=== PATIENT | male | born 1995 | race Two or more races ===

== ENCOUNTER 2022-09-25 00:10 | Inpatient (IN) | payer MEDICAID, OTHER ==
[~2022-09-25] VITALS: Ht 182.9 cm; Wt 88.2 kg
[2022-09-25] MEDS ORDERED: ONDANSETRON ODT 4 MG TAB PO ONE ×2 (00:30→01:30)
[2022-09-25] MEDS ORDERED: HYDROmorphone HCL 2 MG/ML VL/or syr IM ONE (01:30)
[2022-09-25 01:42] LABS: Basophils # (auto) 0 10 ^3/uL (0-0.2); Basophils % (auto) 0.2 % (0.0-2.0); Eosinophils # (auto) 0 10 ^3/uL (0-0.8); Hematocrit 49.7 % (41.0-53.0); Hemoglobin 16.6 g/dL (13.5-17.5); Lymphocytes # (auto) 1.6 10 ^3/uL (0.4-5.4); Lymphocytes % (auto) 11.4 % (10.0-50.0); Mean Corpuscular Hemoglobin 28.5 pg (28.0-32.0); Mean Corpuscular Hgb Conc. 33.3 g/dL (32.0-36.0); Mean Corpuscular Volume 85.4 fL (80.0-100.0); Monocytes # (auto) 0.6 10 ^3/uL (0-1.3); Monocytes % (auto) 4.2 % (0.0-12.0); Neutrophils # (auto) 11.8 10 ^3/uL (1.6-8.6); Neutrophils % (auto) 84.2 % (37.0-80.0); Nucleated Red Blood Cells % 0.1 %; Red Blood Cells 5.82 10^6/uL (4.5-5.90); Red Cell Distribution Width 14.5 % (11.8-14.3)
[2022-09-25] MEDS ORDERED: LIDOCAINE VISCOUS 2% 15ML UD PO ONE (02:15)
[2022-09-25] MEDS ORDERED: MAALOX PLUS or MAALOX 30 ML PO ONE (02:15)
[2022-09-25 02:22] LABS: Albumin 4.4 g/dL (3.4-5.0); BUN/Creatinine Ratio 19.7 (10.0-20.0); Calcium 9.8 mg/dL (8.5-10.1); Magnesium 2.3 mg/dL (1.6-2.6); Potassium 3.7 mmol/L (3.5-5.1)
[2022-09-25 02:25] LABS: Bilirubin, Total 0.6 mg/dL (0.2-1.0); Total Protein 9.6 g/dL (6.4-8.2)
[2022-09-25] MEDS ORDERED: DOCUSATE SOD 100 MG CAP PO PRN (13:45)
[2022-09-25] MEDS ORDERED: SODIUM CHLORIDE 0.9% 2,000 ML IV ONE (13:45)
[2022-09-25] MEDS: SODIUM CHLORIDE 0.9% 1,000 ML IV SCH ×2 (13:45→22:32)
[2022-09-25] MEDS: ONDANSETRON HCL 4 MG/2 ML VIAL IV PRN ×3 (14:37→22:26)
[2022-09-25 16:58] LABS: Urine Bacteria NONE SEEN /hpf (None Seen); Urine Blood Negative /uL (Negative); Urine Hyaline Cast MOD /lpf (0 - 2); Urine Mucus MODERATE (None Seen); Urine Specific Gravity 1.035 (1.001-1.035); Urine WBC <1 /hpf (0 - 3)
[2022-09-25 17:11] LABS: Sodium Urine 10 mmol/L (40-220)
[2022-09-25 17:21] LABS: Amphetamine Screen, Urine NEGATIVE (NEGATIVE); Barbiturate Scree,Urine NEGATIVE (NEGATIVE); Benzodiazephine Screen, Urine NEGATIVE (NEGATIVE); Cannabinoid Screen, Urine POSITIVE (NEGATIVE); Cocaine Screen, Urine NEGATIVE (NEGATIVE); Creatinine, Urine 621 mg/dL (30.0-125.0); Opiate Scree,Urine NEGATIVE (NEGATIVE); Phencyclidine Screen, Urine NEGATIVE (NEGATIVE)
[2022-09-25] MEDS ORDERED: PIPERACILLIN-TAZOB 3.375GM 100 ML IV SCH (18:00)
[2022-09-25] MEDS: MORPHINE SULFATE INJ 2 MG/ml SYRG IV PRN ×2 (18:01→22:26)
[2022-09-25 18:23] VITALS: BP 132/80
[2022-09-25 22:00] VITALS: BP 129/77
[2022-09-26] MEDS: MORPHINE SULFATE INJ 2 MG/ml SYRG IV PRN ×2 (02:13→09:08)
[2022-09-26] MEDS: ONDANSETRON HCL 4 MG/2 ML VIAL IV PRN ×2 (02:13→09:08)
[2022-09-26 05:00] VITALS: BP 141/94
[2022-09-26] MEDS: SODIUM CHLORIDE 0.9% 1,000 ML IV SCH ×2 (06:21→13:43)
[2022-09-26 06:34] LABS: Basophils # (auto) 0.1 10 ^3/uL (0-0.2); Basophils % (auto) 0.4 % (0.0-2.0); Eosinophils # (auto) 0 10 ^3/uL (0-0.8); Hematocrit 45.9 % (41.0-53.0); Hemoglobin 15.2 g/dL (13.5-17.5); Lymphocytes # (auto) 1.9 10 ^3/uL (0.4-5.4); Lymphocytes % (auto) 12.8 % (10.0-50.0); Mean Corpuscular Hemoglobin 28.5 pg (28.0-32.0); Mean Corpuscular Volume 86.3 fL (80.0-100.0); Monocytes # (auto) 1.1 10 ^3/uL (0-1.3); Monocytes % (auto) 7.4 % (0.0-12.0); Neutrophils % (auto) 79.4 % (37.0-80.0); Red Blood Cells 5.31 10^6/uL (4.5-5.90); Red Cell Distribution Width 14.9 % (11.8-14.3); White Blood Cell 15.1 10^3/uL (4.4-10.8)
[2022-09-26 06:36] LABS: Calcium 8.7 mg/dL (8.5-10.1); Potassium 3.8 mmol/L (3.5-5.1)
[2022-09-26 06:40] LABS: BUN/Creatinine Ratio 27.3 (10.0-20.0); Bilirubin, Total 0.8 mg/dL (0.2-1.0); Total Protein 8.3 g/dL (6.4-8.2)
[2022-09-26 09:00] VITALS: BP 142/83
[2022-09-26] MEDS ORDERED: PANTOPRAZOLE 40 MG/10 ML VIAL INJ IV SCH (10:00)
[2022-09-26 13:00] VITALS: BP 113/64
[2022-09-26] MEDS ORDERED: metroNIDAZOLE 500MG/100ML 100 ML IV SCH (14:00)
[2022-09-26] MEDS ORDERED: MET500T PO (16:03)
[2022-09-26 16:19] VITALS: BP 113/64
== END 2022-09-26 16:58 | disposition home or self-care (01) | DRG 248 ==
LOC: ER 00:10 → OVERFLOW 13:40 → EAST 18:13
PROVIDERS: ADMIT Nurse Practitioner Family; ATTEND Nurse Practitioner Family
DX: A04.9 Bacterial intestinal infection, unspecified (principal); N17.0 Acute kidney failure with tubular necrosis; K29.00 Acute gastritis without bleeding; D72.829 Elevated white blood cell count, unspecified; E86.0 Dehydration
CPT/HCPCS: 36415; 74176; 80053; 80307; 80320; 81001; 82570; 83690; 83735; 84300; 85025; 96361; 96372; 96374; 96375; C9113; G0378; J2405; J3490; Q0162

== ENCOUNTER 2023-02-12 02:07 | Inpatient (IN) | payer MEDICAID ==
[~2023-02-12] VITALS: Ht 182.9 cm; Wt 80.8 kg
[~2023-02-12 02:07] MED LIST: MET500T PO
[2023-02-12 02:46] LABS: Basophils # (auto) 0 10 ^3/uL (0-0.2); Basophils % (auto) 0.2 % (0.0-2.0); Eosinophils # (auto) 0 10 ^3/uL (0-0.8); Hematocrit 50.8 % (41.0-53.0); Hemoglobin 16.8 g/dL (13.5-17.5); Lymphocytes # (auto) 1.3 10 ^3/uL (0.4-5.4); Lymphocytes % (auto) 9.6 % (10.0-50.0); Mean Corpuscular Hemoglobin 28.2 pg (28.0-32.0); Mean Corpuscular Volume 85.7 fL (80.0-100.0); Monocytes # (auto) 0.5 10 ^3/uL (0-1.3); Monocytes % (auto) 4.1 % (0.0-12.0); Neutrophils # (auto) 11.5 10 ^3/uL (1.6-8.6); Neutrophils % (auto) 86.1 % (37.0-80.0); Nucleated Red Blood Cells % 0.1 %; Red Blood Cells 5.94 10^6/uL (4.5-5.90); Red Cell Distribution Width 14.5 % (11.8-14.3); White Blood Cell 13.3 10^3/uL (4.4-10.8)
[2023-02-12 03:02] LABS: Alanine Aminotransferase 15 U/L (7-40); Albumin 5.5 g/dL (3.2-4.8); Alkaline Phosphatase 111 U/L (46-116); Anion Gap 13 (5-15); Aspartate Aminotransferase 10 U/L (13-40); BUN/Creatinine Ratio 13.8 (10.0-20.0); Blood Urea Nitrogen 19 mg/dL (9-23); Calcium 9.9 mg/dL (8.7-10.4); Carbon Dioxide 19 mmol/L (20-30); Chloride 108 mmol/L (98-107); Glucose 152 mg/dL (74-106); Lipase 38 U/L (12-53); Potassium 4.2 mmol/L (3.5-5.1); Sodium 140 mmol/L (136-145)
[2023-02-12 03:03] LABS: Bilirubin, Total 0.7 mg/dL (0.2-1.0); Total Protein 9.2 g/dL (5.7-8.2)
[2023-02-12] MEDS ORDERED: ONDANSETRON HCL 4 MG/2 ML VIAL IV ONE (07:30)
[2023-02-12] MEDS ORDERED: SODIUM CHLORIDE 0.9% 1,000 ML IV ONE ×3 (07:30→11:00)
[2023-02-12] MEDS ORDERED: MORPHINE SULFATE 4 MG/ML SYR/VIAL IV ONE (07:30)
[2023-02-12 08:37] VITALS: PULSE 80; RESP 20; O2SAT 98
[2023-02-12] MEDS ORDERED: DOCUSATE SOD 100 MG CAP PO PRN (11:00)
[2023-02-12] MEDS: MORPHINE SULFATE INJ 2 MG/ml SYRG IV PRN ×3 (14:31→22:20)
[2023-02-12] MEDS: ONDANSETRON HCL 4 MG/2 ML VIAL IV PRN ×3 (14:31→22:19)
[2023-02-12] MEDS: metroNIDAZOLE 500MG/100ML 100 ML IV SCH ×2 (15:33→22:18)
[2023-02-12] MEDS: SODIUM CHLORIDE 0.9% 1,000 ML IV SCH ×2 (15:37→18:03)
[2023-02-12 20:00] VITALS: BP 116/69; PULSE 74; RESP 20; TEMP 98.1
[2023-02-12 20:10] VITALS: PULSE 84; RESP 20; O2SAT 100
[2023-02-12 21:36] LABS: Urine Bacteria NONE SEEN /hpf (None Seen); Urine Blood Negative /uL (Negative); Urine Clarity Clear (Clear); Urine Color Yellow (Yellow); Urine Mucus FEW (None Seen); Urine Protein, UAD 1+ (Negative); Urine Specific Gravity 1.036 (1.001-1.035); Urine Urobilinogen Normal (Negative); Urine WBC 2 /hpf (0 - 3)
[2023-02-12] MEDS: PANTOPRAZOLE 40 MG/10 ML VIAL INJ IV SCH (22:18)
[2023-02-13] VITALS (7 sets, daily range): BP systolic 103–136; BP diastolic 65–91; PULSE 55–85; RESP 16–20; TEMP 97.6–98.6; O2SAT 90–100
[2023-02-13] MEDS: ONDANSETRON HCL 4 MG/2 ML VIAL IV PRN ×2 (02:24→09:17)
[2023-02-13] MEDS: MORPHINE SULFATE INJ 2 MG/ml SYRG IV PRN ×5 (02:24→22:59)
[2023-02-13] MEDS: SODIUM CHLORIDE 0.9% 1,000 ML IV SCH ×4 (03:00→22:54)
[2023-02-13 04:58] LABS: Basophils # (auto) 0 10 ^3/uL (0-0.2); Basophils % (auto) 0.3 % (0.0-2.0); Eosinophils # (auto) 0 10 ^3/uL (0-0.8); Hematocrit 43.5 % (41.0-53.0); Lymphocytes % (auto) 16.9 % (10.0-50.0); Mean Corpuscular Hemoglobin 27.9 pg (28.0-32.0); Mean Corpuscular Hgb Conc. 32.3 g/dL (32.0-36.0); Mean Corpuscular Volume 86.4 fL (80.0-100.0); Monocytes # (auto) 0.8 10 ^3/uL (0-1.3); Monocytes % (auto) 6.7 % (0.0-12.0); Neutrophils # (auto) 8.9 10 ^3/uL (1.6-8.6); Neutrophils % (auto) 76.1 % (37.0-80.0); Nucleated Red Blood Cells % 0.1 %; Red Blood Cells 5.03 10^6/uL (4.5-5.90); Red Cell Distribution Width 15.1 % (11.8-14.3); White Blood Cell 11.7 10^3/uL (4.4-10.8)
[2023-02-13 05:13] LABS: Alanine Aminotransferase 11 U/L (7-40); Albumin 4.4 g/dL (3.2-4.8); Alkaline Phosphatase 81 U/L (46-116); Anion Gap 7 (5-15); Aspartate Aminotransferase 15 U/L (13-40); BUN/Creatinine Ratio 19.6 (10.0-20.0); Bilirubin, Total 0.8 mg/dL (0.2-1.0); Blood Urea Nitrogen 19 mg/dL (9-23); Calcium 8.8 mg/dL (8.7-10.4); Carbon Dioxide 24 mmol/L (20-30); Chloride 113 mmol/L (98-107); Glucose 107 mg/dL (74-106); Potassium 3.9 mmol/L (3.5-5.1); Sodium 144 mmol/L (136-145); Total Protein 7.1 g/dL (5.7-8.2)
[2023-02-13] MEDS ORDERED: KETOROLAC TROMETH 30 MG/ML 1ML VIAL IV ONE (06:00)
[2023-02-13] MEDS: metroNIDAZOLE 500MG/100ML 100 ML IV SCH ×3 (06:15→21:30)
[2023-02-13] MEDS: PANTOPRAZOLE 40 MG/10 ML VIAL INJ IV SCH ×2 (09:07→21:29)
[2023-02-13] MEDS: cefTRIAXone 1GM/50ML D5W 50 ML IV SCH (09:07)
[2023-02-13] MEDS: METOCLOPRAMIDE HCL 5MG/ml INJ 2ml VIAL IV PRN ×2 (11:52→17:09)
[2023-02-13 13:44] LABS: Amphetamine Screen, Urine Neg (NEGATIVE); Barbiturate Scree,Urine Neg (NEGATIVE)
[2023-02-13 13:45] LABS: Benzodiazephine Screen, Urine Neg (NEGATIVE); Cannabinoid Screen, Urine Pos (NEGATIVE); Cocaine Screen, Urine Neg (NEGATIVE); Opiate Scree,Urine Pos (NEGATIVE); Phencyclidine Screen, Urine Neg (NEGATIVE)
[2023-02-13] MEDS: SUCRALFATE 1 GM/10 ML ORAL SUSP GT SCH ×2 (17:09→21:29)
[2023-02-14] MEDS: MORPHINE SULFATE INJ 2 MG/ml SYRG IV PRN ×2 (02:06→06:02)
[2023-02-14 05:00] VITALS: BP 110/71; PULSE 77; RESP 17; TEMP 98.2; O2SAT 95
[2023-02-14] MEDS: metroNIDAZOLE 500MG/100ML 100 ML IV SCH ×2 (05:07→14:00)
[2023-02-14 05:45] LABS: Basophils # (auto) 0.1 10 ^3/uL (0-0.2); Basophils % (auto) 0.6 % (0.0-2.0); Eosinophils # (auto) 0 10 ^3/uL (0-0.8); Eosinophils % (auto) 0.2 % (0.0-7.0); Hematocrit 41.5 % (41.0-53.0); Hemoglobin 13.6 g/dL (13.5-17.5); Lymphocytes # (auto) 3.3 10 ^3/uL (0.4-5.4); Lymphocytes % (auto) 30.8 % (10.0-50.0); Mean Corpuscular Hemoglobin 28.3 pg (28.0-32.0); Mean Corpuscular Hgb Conc. 32.8 g/dL (32.0-36.0); Mean Corpuscular Volume 86.2 fL (80.0-100.0); Monocytes # (auto) 0.8 10 ^3/uL (0-1.3); Monocytes % (auto) 7.4 % (0.0-12.0); Neutrophils # (auto) 6.5 10 ^3/uL (1.6-8.6); Nucleated Red Blood Cells % 0.1 %; Red Blood Cells 4.81 10^6/uL (4.5-5.90); Red Cell Distribution Width 14.7 % (11.8-14.3); White Blood Cell 10.6 10^3/uL (4.4-10.8)
[2023-02-14] MEDS: SUCRALFATE 1 GM/10 ML ORAL SUSP GT SCH ×2 (06:02→12:00)
[2023-02-14 06:07] LABS: Alanine Aminotransferase 12 U/L (7-40); Albumin 3.9 g/dL (3.2-4.8); Alkaline Phosphatase 65 U/L (46-116); Anion Gap 9 (5-15); Aspartate Aminotransferase 16 U/L (13-40); Bilirubin, Total 0.8 mg/dL (0.2-1.0); Blood Urea Nitrogen 12 mg/dL (9-23); Calcium 8.7 mg/dL (8.5-10.1); Carbon Dioxide 22 mmol/L (20-30); Chloride 113 mmol/L (98-107); Glucose 103 mg/dL (74-106); Potassium 3.8 mmol/L (3.5-5.1); Sodium 144 mmol/L (136-145)
[2023-02-14 06:08] LABS: Total Protein 6.4 g/dL (5.7-8.2)
[2023-02-14 08:00] VITALS: BP 109/68; PULSE 73; RESP 18; TEMP 97.6; O2SAT 92
[2023-02-14] MEDS ORDERED: FLUMAZENIL 0.1 MG/ML INJ 10ML MDV IV ONE (08:02)
[2023-02-14] MEDS ORDERED: NALOXONE HCL 0.4 MG/ML VIAL ONE (08:02)
[2023-02-14] MEDS ORDERED: SODIUM CHLORIDE LOCK 10 ML ONE (08:02)
[2023-02-14] MEDS ORDERED: LIDOCAINE VISCOUS 2% 15ML UD ONE (08:02)
[2023-02-14] MEDS ORDERED: diphenhdrAMINE HCL 50 MG/1 ML VL ONE (08:02)
[2023-02-14] MEDS: MIDAZOLAM HCL 5 MG/ML-1ML VIAL ONE ×3 (08:53→09:01)
[2023-02-14] MEDS: fentaNYL CITRATE 100 MCG/2 ML VL ONE ×2 (08:53→08:57)
[2023-02-14 09:00] VITALS: BP 109/68; PULSE 73; RESP 18; TEMP 97.6; O2SAT 92
[2023-02-14 09:08] VITALS: PULSE 65; RESP 17
[2023-02-14] MEDS: PANTOPRAZOLE 40 MG/10 ML VIAL INJ IV SCH (10:39)
[2023-02-14] MEDS: cefTRIAXone 1GM/50ML D5W 50 ML IV SCH (10:39)
[2023-02-14] MEDS: SODIUM CHLORIDE 0.9% 1,000 ML IV SCH (11:00)
[2023-02-14] MEDS ORDERED: PANT40TA2 PO (12:28)
[2023-02-14 13:00] VITALS: BP 111/67; PULSE 51; RESP 18; TEMP 98.1; O2SAT 97
[2023-02-14 14:53] VITALS: BP 111/67; PULSE 73; RESP 18; TEMP 98.1; O2SAT 97
== END 2023-02-14 15:40 | disposition home or self-care (01) | DRG 720 ==
LOC: ER 02:07 → OVERFLOW 11:07 → CENTRAL 16:50
PROVIDERS: ADMIT Internal Medicine; ATTEND Internal Medicine
PROC: 0DB68ZX Excision of Stomach, Via Natural or Artificial Opening Endoscopic, Diagnostic (ICD-10-PCS; 2023-02-14)
PROC: 0DB48ZX Excision of Esophagogastric Junction, Via Natural or Artificial Opening Endoscopic, Diagnostic (ICD-10-PCS; 2023-02-14)
PROC: 0DB98ZX Excision of Duodenum, Via Natural or Artificial Opening Endoscopic, Diagnostic (ICD-10-PCS; principal; 2023-02-14 08:49)
DX: A41.9 Sepsis, unspecified organism (principal); N17.9 Acute kidney failure, unspecified; K22.11 Ulcer of esophagus with bleeding; K25.4 Chronic or unspecified gastric ulcer with hemorrhage; K29.71 Gastritis, unspecified, with bleeding; I88.0 Nonspecific mesenteric lymphadenitis; E86.0 Dehydration; F12.10 Cannabis abuse, uncomplicated; K44.9 Diaphragmatic hernia without obstruction or gangrene; Z91.199 Patient's noncompliance with other medical treatment and regimen due to unspecified reason
CPT/HCPCS: 36415; 74176; 80053; 80307; 81001; 83690; 83735; 85025; C9113; G0378; J0696; J1885; J2250; J2405; J3490

== ENCOUNTER → 2024-03-16 | Day surgery (SDC) | payer MEDICAID ==
[2024-03-12 10:36] LABS: Basophils # (auto) 0 10 ^3/uL (0-0.2); Basophils % (auto) 0.5 % (0.0-2.0); Eosinophils # (auto) 0.1 10 ^3/uL (0-0.8); Eosinophils % (auto) 1.5 % (0.0-7.0); Hematocrit 46.3 % (41.0-53.0); Hemoglobin 15.4 g/dL (13.5-17.5); Lymphocytes # (auto) 2.5 10 ^3/uL (0.4-5.4); Lymphocytes % (auto) 26.9 % (10.0-50.0); Mean Corpuscular Hemoglobin 28.6 pg (28.0-32.0); Mean Corpuscular Hgb Conc. 33.4 g/dL (32.0-36.0); Mean Corpuscular Volume 85.8 fL (80.0-100.0); Monocytes # (auto) 0.6 10 ^3/uL (0-1.3); Monocytes % (auto) 6.5 % (0.0-12.0); Neutrophils # (auto) 6.1 10 ^3/uL (1.6-8.6); Neutrophils % (auto) 64.6 % (37.0-80.0); Nucleated Red Blood Cells % 0.1 %; Platelet Count (auto) 275 10^3/uL (140-450); Red Blood Cells 5.39 10^6/uL (4.5-5.90); White Blood Cell 9.4 10^3/uL (4.4-10.8)
[2024-03-12 10:42] LABS: INR 1.13 (0.9-1.15); Partial Thromboplastin Time 28.3 SEC (24.5-34.5); Prothrombin Time 11.9 sec (9.3-11.8)
[2024-03-12 10:48] LABS: Alanine Aminotransferase 17 U/L (7-40); Alkaline Phosphatase 101 U/L (46-116); Aspartate Aminotransferase 16 U/L (13-40); Calcium 9.4 mg/dL (8.7-10.4); Carbon Dioxide 26 mmol/L (20-31); Sodium 140 mmol/L (136-145)
[2024-03-12 10:49] LABS: Albumin 4.4 g/dL (3.2-4.8); Anion Gap 5 (5-15); BUN/Creatinine Ratio 16.8 (10.0-20.0); Bilirubin, Total 0.5 mg/dL (0.2-1.0); Blood Urea Nitrogen 17 mg/dL (9-23); Total Protein 7.5 g/dL (5.7-8.2)
[2024-03-12 11:02] LABS: Chloride 109 mmol/L (98-107); Glucose 106 mg/dL (74-106)
[~2024-03-16] VITALS: Ht 182.9 cm; Wt 90.3 kg
[~2024-03-16] MED LIST changes: +HYDR-4072 PO; -MET500T PO; +MIDAZOLAM HCL 2MG/2ML 2ml VIAL (1mg/ml) ONE; +ONDANSETRON HCL 4 MG/2 ML VIAL IV ONE; +ONDANSETRON HCL 4 MG/2 ML VIAL ONE; +PROPOFOL 10 MG/ML 20 ML IV ONE; +fentaNYL CITRATE 100 MCG/2 ML VL ONE
[2024-03-16 11:29] VITALS: PULSE 70; RESP 17; TEMP 97.3; O2SAT 96
--- NOTE | 2024-03-16 11:41 | DVHOP2 ---
Operative Report DATE OF OPERATION: 03/16/24 PROCEDURE: Colonoscopy with biopsies. PREOPERATIVE INDICATION: The patient is a 28 -year-old male undergoing colonoscopy for evaluation of abdominal pain and abnormal finding GI tract imaging POSTOPERATIVE DIAGNOSES: 1. Tpyl-yi-[id number] ileitis involving the distal terminal ileum with superficial aphthous like ulcerations hyperemia erythema suspicious for mild Crohn's 2. 1+ internal hemorrhoids with minimal associated proctitis otherwise normal examination up to the cecum and terminal ileum PROCEDURE PERFORMED BY: Reza Pleitez M.D. SCOPE: Olympus videocolonoscope. ASA CLASS: 2. PREOPERATIVE MEDICATIONS: Dr. Zoe Ibrahim PROCEDURE IN DETAIL: After obtaining an informed consent, the patient was placed on left lateral decubitus position. He was then sedated with the above medications. A rectal examination was performed that was normal. The colonoscope was then passed through the anus into the rectosigmoid and through the descending, transverse, and ascending colon up to the cecum with visualization of the appendiceal orifice, base of the cecum and the ileocecal valve. The terminal ileum was intubated and distal 5-10 cm of the terminal ileum showed moderate ileitis with superficial aphthous like ulcerations hyperemia erythema from which multiple biopsies were obtained. This was suspicious for mild Crohn's ileitis. The colonoscope was then withdrawn. No polyps or masses were seen There was no evidence of colitis or diverticular disease. Patient had mild tortuosity of the hepatic flexure On retroflexion and straight on view he had trace to 1+ internal hemorrhoids with minimal associated proctitis The patient tolerated the procedure well without difficulty. WITHDRAWAL TIME: 11 minutes QUALITY OF THE PREP: [place] Bowel Prep score: 9. COMPLICATIONS : None SPECIMENS: Terminal ileum biopsies DISPOSITION: Stable D/C to home PLAN: 1. Repeat colonoscopy depending on clinical symptoms and management 2. Resume GI soft diet advance as tolerated 3. DC aspirin NSAIDs smoking alcohol 4. Check IBD panel and TPMT genotype 5. Start treatment with Entocort 3 mg p.o. twice a day and Pentasa 500 mg p.o. twice a day 6. Outpatient follow up with me in 2-4 weeks to review results and discuss further management REZA PLEITEZ MD Mar 16, 2024 11:41
[2024-03-16 11:50] VITALS: BP 112/76; PULSE 71; RESP 16; O2SAT 93
== END | disposition home or self-care (01) ==
LOC: GI 09:20
PROVIDERS: ATTEND Internal Medicine Gastroenterology
DX: R10.9 Unspecified abdominal pain (principal); R93.3 Abnormal findings on diagnostic imaging of other parts of digestive tract; K64.0 First degree hemorrhoids; K52.9 Noninfective gastroenteritis and colitis, unspecified; K62.89 Other specified diseases of anus and rectum; Q43.8 Other specified congenital malformations of intestine; F17.200 Nicotine dependence, unspecified, uncomplicated; K21.9 Gastro-esophageal reflux disease without esophagitis
CPT/HCPCS: 36415; 45380; 80053; 85025; 85610; 85730; 88305; J2250; J2405; J2704; J3010

== ENCOUNTER 2024-06-08 09:08 | Inpatient (IN) | payer MEDICAID ==
[~2024-06-08] VITALS: Ht 185.4 cm; Wt 83.3 kg
[2024-06-08] VITALS (7 sets, daily range): BP systolic 119–140; BP diastolic 79–87; PULSE 74–97; RESP 18–24; TEMP 97.8–98.7; O2SAT 94–98
[~2024-06-08 09:08] MED LIST changes: -MIDAZOLAM HCL 2MG/2ML 2ml VIAL (1mg/ml) ONE; -ONDANSETRON HCL 4 MG/2 ML VIAL IV ONE; -ONDANSETRON HCL 4 MG/2 ML VIAL ONE; -PROPOFOL 10 MG/ML 20 ML IV ONE; -fentaNYL CITRATE 100 MCG/2 ML VL ONE
--- NOTE | 2024-06-08 09:38 | ED.PDOC ---
GI ASSESSMENT HPI Comments 28Y M with PMHx gastritis and pyloric stenosis presents to ED for chief complaint abd pain x2days with nausea, vomiting, and constipation. Pt states abd pain is located on epigastric region. LBM 2 days ago. Pt states he ate [employer] before the symptoms began. No one else at home is sick. Pt states he smokes marijuana but has significantly cut down the amount. No other symptoms reported. Chief Complaint: Abdominal Pain Time Seen by MD: 09:30 Reviewed Notes: Nurses Notes, Medications, Allergies Allergies: Coded Allergies: NO KNOWN ALLERGIES (Unverified , 09/25/22) Home Meds Reported Medications Hydrocodone-Acetaminophen (Hydrocodone/Acetaminophen 10-325 mg) 1 Tab Tab, 1 TAB PO PRN, TAB 03/12/24 Information Source: Patient Mode of Arrival: Ambulatory Timing: Days Duration: Since onset Prehospital treatment: None Quality: Sharp Vomitus: Watery Stool: Minimal Severity: Moderate Recent: Possible spoiled food Recent Hx of: None Pain Location: Epigastric Modifying Factors: Nothing Associated sign and symptoms: Nausea, Vomiting, Constipation, Abdominal Pain Past Medical History Past Medical History (Other): gastritis, pyloric stenosis Surgical History: Denies all surgeries Family History Family History: Reviewed,noncontributory to illness, No family hx of Cancer, No family hx of DM, No family hx of Heart merry, No family hx of HTN, No family hx ofKidney merry, No family hx of Liver merry, No family hx of Lung merry, No family hx of Stroke Social History Smoker: Non-Smoker Alcohol: Denies ETOH Use Drugs: Marijuana Lives In: Home Constitutional: denies: chills, diaphoresis, fatigue, fever, malaise, sweats, weakness, others EENTM: denies: blurred vision, double vision, ear bleeding, ear discharge, ear drainage, ear pain, ear ringing, eye pain, eye redness, hearing loss, mouth pain, mouth swelling, nasal discharge, nose bleeding, nose congestion, nose pain, photophobia, tearing, throat pain, throat swelling, voice changes, others Respiratory: denies: cough, hemoptysis, orthopnea, SOB at rest, shortness of breath, SOB with excertion, stridor, wheezing, others Cardiovascular: denies: chest pain, dizzy spells, diaphoresis, Dyspnea on exertion, edema, irregular heart beat, left arm pain, lightheadedness, palpitations, PND, syncope, others Gastrointestinal: reports: abdominal pain, constipated, nausea, vomiting; denies: abdomen distended, blood streaked bowels, diarrhea, dysphagia, difficulty swallowing, hematemesis, melena, poor appetite, poor fluid intake, rectal bleeding, rectal pain, others Genitourinary: denies: burning, dysuria, flank pain, frequency, hematuria, incontinence, penile discharge, penile sore, pain, testicle pain, testicle swelling, urgency, others Neurological: denies: dizziness, fainting, headache, left sided numbness, left sided weakness, numbness, paresthesia, pre-existing deficit, right sided numbness, right sided weakness, seizure, speech problems, tingling, tremors, weakness, others Musculoskeletal: denies: back pain, gout, joint pain, joint swelling, muscle pain, muscle stiffness, neck pain, others Integumetry: denies: bruises, change in color, change in hair/nails, dryness, laceration, lesions, lumps, rash, wounds, others Allergic/Immunocompromised: denies: Difficulty Healing, Frequent Infections, H gus, Itching, others Hematologic/Lymphatic: denies: anemia, blood clots, easy bleeding, easy bruising, swollen glands, others Endocrine: denies: excessive hunger, excessive sweating, excessive thirst, excessive urination, flushing, intolerance to cold, intolerance to heat, unexplained weight gain, unexplained weight loss, others Psychiatric: denies: anxiety, bipolar disorder, depression, hopeless, panic disorder, schizophrenia, sleepless, suicidal, others All Other Systems: Reviewed and Negative Physical Exam General Appearance: No Apparent Distress, Normal HEENT: Normal ENT Inspection, Pharynx Normal, TMs Normal Neck: Full Range of Motion, Non-Tender, Normal, Normal Inspection Respiratory: Chest Non-Tender, Lungs Clear, No Accessory Muscle Use, No Respiratory Distress, Normal Breath Sounds Cardiovascular: No Edema, No JVD, No Murmur, No Gallop, Normal Peripheral Pulses, Regular Rate/Rhythm Breast Exam: Deferred Gastrointestinal: Epigastric, No Organomegaly, No Pulsatile Mass, Normal Bowel Sounds, Soft, Tenderness Genitalia: Deferred Pelvic: Deferred Rectal: Deferred Extremities: No calf tenderness, Normal capillary refill, Normal inspection, Normal range of motion, Non-tender, No pedal edema Musculoskeletal : Apperance: Normal Neurologic: Alert, 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 Was a procedure done?: No GI differential Dx Differential Diagnosis: Appendicitis, Bowel Obstruction, Cholangitis, Cholecystitis, Constipation, Diverticular disease, Gastritis/PUD, Gastroenteritis, Hernia, Hepatitis, Urolithiasis, Dehydration, Diabetes/ DKA, Electrolyte Imbalance, Food Poisoning, Bacterial, Viral, Hypovolemia, Impaction, Renal Failure, Kidney Stone, Other ([facility]) X-Ray, Labs, Meds, VS Vital Signs Date Time Temp Pulse Resp B/P (MAP) Pulse Ox O2 Delivery O2 Flow Rate FiO2 06/08/24 10:45 145/87 06/08/24 10:06 82 18 98 Room Air* 0 21 06/08/24 10:06 97.8 82 18 140/95 (110) 98 97.8 06/08/24 09:14 97.3 83 20 144/96 (112) 97 97.3 Lab Test 06/08/24 09:54 Range/Units White Blood Count 12.7 H 4.4-10.8 10^3/uL Red Blood Count 6.30 H 4.5-5.90 10^6/uL Hemoglobin 18.0 H 13.5-17.5 g/dL Hematocrit 54.0 H 41.0-53.0 % Mean Corpuscular Volume 85.6 80.0-100.0 fL Mean Corpuscular Hemoglobin 28.6 28.0-32.0 pg Mean Corpuscular Hemoglobin Concent 33.3 32.0-36.0 g/dL Red Cell Distribution Width 14.8 H 11.8-14.3 % Platelet Count 327 140-450 10^3/uL Mean Platelet Volume 9.3 6.9-10.8 fL Neutrophils (%) (Auto) 90.2 H 37.0-80.0 % Lymphocytes (%) (Auto) 7.3 L 10.0-50.0 % Monocytes (%) (Auto) 2.3 0.0-12.0 % Eosinophils (%) (Auto) 0.0 0.0-7.0 % Basophils (%) (Auto) 0.2 0.0-2.0 % Neutrophils # (Auto) 11.5 H 1.6-8.6 10 ^3/uL Lymphocytes # (Auto) 0.9 0.4-5.4 10 ^3/uL Monocytes # (Auto) 0.3 0-1.3 10 ^3/uL Eosinophils # (Auto) 0 0-0.8 10 ^3/uL Basophils # (Auto) 0 0-0.2 10 ^3/uL Nucleated Red Blood Cells 0.2 % Sodium Level 141 136-145 mmol/L Potassium Level 4.3 3.5-5.1 mmol/L Chloride Level 107 98-107 mmol/L Carbon Dioxide Level 18 L 20-31 mmol/L Anion Gap 16 H 5-15 Blood Urea Nitrogen 23 9-23 mg/dL Creatinine 2.08 H 0.700-1.30 mg/dL Glomerular Filtration Rate Calc 43 >90 mL/min BUN/Creatinine Ratio 11.1 10.0-20.0 Serum Glucose 160 H 74-106 mg/dL Calcium Level 11.5 H 8.7-10.4 mg/dL Total Bilirubin 0.6 0.2-1.0 mg/dL Aspartate Amino Transferase (AST) 24 13-40 U/L Alanine Aminotransferase (ALT) 34 7-40 U/L Alkaline Phosphatase 118 H 46-116 U/L Total Protein 9.9 H 5.7-8.2 g/dL Albumin 6.0 H 3.2-4.8 g/dL Lipase 32 12-53 U/L Current Medications Medications (Trade) Dose Ordered Sig/Jack Route Start Time Stop Time Status Last Admin Sodium Chloride 1,000 ml @ 1,000 mls/hr Q1H ONCE IV 06/08/24 09:45 06/08/24 10:44 DC 06/08/24 10:02 Ondansetron HCl (Zofran) 4 mg ONCE ONCE IV 06/08/24 09:45 06/08/24 09:46 DC 06/08/24 10:03 Fentanyl Citrate 12.5 mcg ONCE ONCE IV 06/08/24 10:45 06/08/24 10:46 DC 06/08/24 10:[address] [address] Ph: [phone] DIAGNOSTIC IMAGING Diagnostic Imaging Report : [id number] Signed PATIENT: GISELL OSEGUERA IACCT: [id number] UNIT: [id number] : 1995 LOC: ER ROOM / BED: / AGE / SEX: 28 / M ADM STATUS: REG ER SERVICE [id number] ORDERING PHYSICIAN: LEDA ROMEO MD PROCEDURE(s): GBUS - GALLBLADDER REASON: epigastric pain, nausea, vomiting ORDER NUMBER(s): [id number], ACCESSION NUMBER(s): [id number] INDICATION: epigastric pain, nausea, vomiting TECHNIQUE: Multiple real-time sonographic images were obtained of the right upper quadrant. COMPARISON: None FINDINGS: The liver demonstrates homogenous echotexture without focal mass lesions. The liver measures 14 cm. There is 0.4 intrahepatic or extrahepatic ductal dilatation. The common duct measures 4 mm. Gallstones. There is no gallbladder wall thickening with gallbladder wall measuring 2 mm. The right kidney measures 9.6 cm. The right kidney is normal in contour, size, and shape. The echogenicity is normal. There is no hydronephrosis. The pancreas is not well visualized due to overlying bowel gas. Evaluation is limited as patient was unable to tolerate exam. IMPRESSION: Cholelithiasis without sonographic evidence of acute cholecystitis. ATED BY: MARCK MCKENNA MD DICTATED DATE/TIME: 06/08/24 100 SIGNED BY: MARCK MCKENNA MD SIGNED DATE/TIME: 06/08/24 100 CC: Time of 1ST Reevaluation: 10:00 Reevaluation 1ST: Unchanged Patient Education/Counseling: Diagnosis, Treatment Family Education/Counseling: No Family Present Additional Information Previous visit documents reviewed: [facility] discharge 02/14/2023 and discharge 09/26/2022 The following tests were ordered, and results were reviewed by me: CBC, CMP, Lip ase, drug screen, gallbladder u/s Additional Information was gathered from interviewing the following independent historians: None I reviewed and agreed with the following test results read by other providers: Gallbladder u/s I discussed treatment and results with medical personnel and: Patient Departure 1 Departure Time of Disposition: 10:57 Impression: Primary Impression: Cholelithiasis Qualified Codes: K80.20 - Calculus of gallbladder without cholecystitis without obstruction Additional Impressions: Biliary colic Intractable nausea and vomiting Dehydration Renal failure (ARF), acute on chronic Qualified Codes: N17.1 - Acute kidney failure with acute cortical necrosis; N18.9 - Chronic kidney disease, unspecified Cannabis abuse Disposition: ADMITTED INPATIENT Admit to: Med Surg Condition: Serious Critical Care Note Critical Care Time?: Yes (45 min-critical care time only) Critical care comment: Due to concerns for patients condition deteriorating, the care required my highest level of attention and readiness to intervene. I assessed the patient, reviewed the medical records, ordered the appropriate tests and treatments, then reassessed for results and responsiveness. I communicated with medical personnel and consultants and formulated a plan of care. Total critical care time excludes any procedures Stability Stability form required: No Heart Score Heart Score: Heart Score Response (Comments) Value History N/A 0 EKG N/A 0 Age N/A 0 Risk Factors N/A 0 Troponin N/A 0 Total 0 I personally scribed for LEDA ROMEO MD ([employer]) on 06/08/24 at 09:38. Electronically submitted by Juanita Calvert ([facility]). I personally scribed for LEDA ROMEO MD ([email or web address]) on 06/08/24 at 10:15. Electronically submitted by Juanita Calvert ([facility]). LEDA ROMEO MD Jun 08, 2024 09:38
[2024-06-08] MEDS: SODIUM CHLORIDE 0.9% 1,000 ML IV ONE (10:02)
[2024-06-08] MEDS: ONDANSETRON HCL 4 MG/2 ML VIAL IV ONE (10:03)
[2024-06-08 10:08] LABS: Basophils # (auto) 0 10 ^3/uL (0-0.2); Basophils % (auto) 0.2 % (0.0-2.0); Eosinophils # (auto) 0 10 ^3/uL (0-0.8); Lymphocytes # (auto) 0.9 10 ^3/uL (0.4-5.4); Lymphocytes % (auto) 7.3 % (10.0-50.0); Mean Corpuscular Hemoglobin 28.6 pg (28.0-32.0); Mean Corpuscular Hgb Conc. 33.3 g/dL (32.0-36.0); Mean Corpuscular Volume 85.6 fL (80.0-100.0); Monocytes # (auto) 0.3 10 ^3/uL (0-1.3); Monocytes % (auto) 2.3 % (0.0-12.0); Neutrophils # (auto) 11.5 10 ^3/uL (1.6-8.6); Neutrophils % (auto) 90.2 % (37.0-80.0); Nucleated Red Blood Cells % 0.2 %; Platelet Count (auto) 327 10^3/uL (140-450); Red Cell Distribution Width 14.8 % (11.8-14.3); White Blood Cell 12.7 10^3/uL (4.4-10.8)
--- NOTE | 2024-06-08 10:12 | DVH ---
INDICATION: epigastric pain, nausea, vomiting TECHNIQUE: Multiple real-time sonographic images were obtained of the right upper quadrant. COMPARISON: None FINDINGS: The liver demonstrates homogenous echotexture without focal mass lesions. The liver measure s 14 cm. There is 0.4 intrahepatic or extrahepatic ductal dilatation. The common duct measures 4 mm . Gallstones. There is no gallbladder wall thickening with gallbladder wall measuring 2 mm. The right kidney measures 9.6 cm. The right kidney is normal in contour, size, and shape. The echoge nicity is normal. There is no hydronephrosis. The pancreas is not well visualized due to overlying bowel gas. Evaluation is limited as patient was unable to tolerate exam. IMPRESSION: Cholelithiasis without sonographic evidence of acute cholecystitis.
[2024-06-08 10:27] LABS: Alanine Aminotransferase 34 U/L (7-40); Anion Gap 16 (5-15); Aspartate Aminotransferase 24 U/L (13-40); BUN/Creatinine Ratio 11.1 (10.0-20.0); Bilirubin, Total 0.6 mg/dL (0.2-1.0); Lipase 32 U/L (12-53); Potassium 4.3 mmol/L (3.5-5.1); Sodium 141 mmol/L (136-145)
[2024-06-08 10:29] LABS: Alkaline Phosphatase 118 U/L (46-116); Blood Urea Nitrogen 23 mg/dL (9-23); Calcium 11.5 mg/dL (8.7-10.4); Carbon Dioxide 18 mmol/L (20-31); Chloride 107 mmol/L (98-107); Glucose 160 mg/dL (74-106); Total Protein 9.9 g/dL (5.7-8.2)
[2024-06-08] MEDS: fentaNYL CITRATE 100 MCG/2 ML VL IV ONE (10:45)
--- NOTE | 2024-06-08 11:49 | DVH ---
Exam: CT CT AB PEL WO CON-NO ORAL OR IV History: abd pain Comparison Study: CT CT AB PEL WO CON-NO ORAL OR IV on DOS: 02/12/23, CT CT AB PEL WO CON-NO ORAL OR IV on DOS: 09/25/22 Technique: Multidetector spiral CT of the abdomen and pelvis was performed from lung bases to pubic symphysis. Imaging was performed without IV contrast. Axial, coronal and sagittal multiplanar reform ats were obtained from the axial data set by the technologist. Radiation dose : Abdomen/Pelvis: CTDIvol 9.67 mGy, DLP 522.53 mGy*cm. Findings: Evaluation of solid organs is limited due to lack of intravenous contrast use. Lung Bases: No acute or significant lung base finding. Normal heart size. No pleural or pericardial effusion. Liver: The liver is normal in size. No focal lesions. Gallbladder and biliary Tree: Sludge in the gallbladder. Spleen: Unremarkable Pancreas: The pancreas is grossly normal in appearance. Adrenal Glands: Unremarkable Kidneys: Kidneys are grossly normal without calculi or hydronephrosis. Bladder: Grossly unremarkable for degree of distention. Bowel: The stomach is grossly normal in appearance. Small bowel and colon are normal in caliber and d istribution. Normal appendix is visualized in the right lower quadrant without findings of appendicit is. Wall thickening of the right and transverse colon. Ascites: Absent Lymphadenopathy: Subcentimeter mesenteric and right lower quadrant lymph nodes. Abdominal wall and Mesentery: Unremarkable. Vasculature: The visualized abdominal aorta is normal in size and caliber. Evaluation of abdominal a nd pelvic vessels is limited due to lack of intravenous contrast. Pelvic Organs: Unremarkable Musculoskeletal: Subtle mixed sclerotic and lucent lesion in the T12 vertebral body unchanged dating back to 2022. IMPRESSION: 1. No definite acute abdominal or pelvic findings. 2. Wall thickening of the right and transverse colon could be due to underdistention. Infectious or i nflammatory colitis could have a similar appearance. Clinical correlation and continued follow-up is recommended. Appearance is similar to prior exam from 2002. 3. Mesenteric and right lower quadrant lymphadenopathy can be seen with mesenteric adenitis. Clinica l correlation and continued follow-up is recommended. Appearance is similar to prior exam from 2022. 4. Likely hemangioma in the T12 vertebral body. This can be further evaluated with MRI of the thoraci c spine with and without contrast. 5. Sludge in the gallbladder. Radiation optimization: All CT scans at this facility use at least one of these dose optimization chuckie hniques: Automated exposure control mA and/or kV adjustment per patient size (includes targeted exams where dose is matched to clinical indication) or iterative reconstruction. HS:Y
[2024-06-08] MEDS ORDERED: ACETAMINOPHEN 325 MG TAB PO PRN (12:00)
--- NOTE | 2024-06-08 12:12 | DVHHP2 ---
History of Present Illness Reason for Visit: Abdominal pain History of Present Illness Marcus Dejesus I is a 28-year-old with past medical history of pyloric stenosis, gastritis, and marijuana use who presents to the ED with abdominal pain, nausea, vomiting, and constipation x3 days. Patient reports that the pain is 10/10 throbbing aching and constant. Patient denies recent ingestion of spoiled food, fever, chills, lightheadedness, weakness, dizziness, chest pain, shortness of breath, numbness, tingling, and paresthesia. GI: Gastritis Past Medical History Pyloric stenosis Past Surgical History: None Family History: None Smoke: No ALCOHOL: none Drugs: Marijuana Lives: with Family Domestic Violence: Neg Review of Systems Gastrointestinal: Nausea, Vomiting, Abdominal Pain, Constipation Allergies: Coded Allergies: NO KNOWN ALLERGIES (Unverified , 09/25/22) Exam Vital Signs Vital Signs Date Time Temp Pulse Resp B/P (MAP) Pulse Ox O2 Delivery O2 Flow Rate FiO2 06/08/24 10:45 145/87 06/08/24 10:06 82 18 98 Room Air* 0 21 06/08/24 10:06 97.8 97.8 General Appearance: Alert, Oriented X3, Cooperative, moderate distress HEENT: Atraumatic, PERRLA, EOMI, Mucous membr. moist/pink Respiratory: Clear to auscultation, Normal air movement Cardiovascular: Normal S1, Normal S2, No murmurs Abdominal: Soft Extremities: No cyanosis, No edema Skin: No significant lesion Neuro: Normal speech, Strength at 5/5 X4 ext, Normal tone, Sensation intact Psych/Mental Status: Mental status NL, Mood NL Labs/Xrays Labs Test 06/08/24 09:54 Range/Units White Blood Count 12.7 H 4.4-10.8 10^3/uL Red Blood Count 6.30 H 4.5-5.90 10^6/uL Hemoglobin 18.0 H 13.5-17.5 g/dL Hematocrit 54.0 H 41.0-53.0 % Mean Corpuscular Volume 85.6 80.0-100.0 fL Mean Corpuscular Hemoglobin 28.6 28.0-32.0 pg Mean Corpuscular Hemoglobin Concent 33.3 32.0-36.0 g/dL Red Cell Distribution Width 14.8 H 11.8-14.3 % Platelet Count 327 140-450 10^3/uL Mean Platelet Volume 9.3 6.9-10.8 fL Neutrophils (%) (Auto) 90.2 H 37.0-80.0 % Lymphocytes (%) (Auto) 7.3 L 10.0-50.0 % Monocytes (%) (Auto) 2.3 0.0-12.0 % Eosinophils (%) (Auto) 0.0 0.0-7.0 % Basophils (%) (Auto) 0.2 0.0-2.0 % Neutrophils # (Auto) 11.5 H 1.6-8.6 10 ^3/uL Lymphocytes # (Auto) 0.9 0.4-5.4 10 ^3/uL Monocytes # (Auto) 0.3 0-1.3 10 ^3/uL Eosinophils # (Auto) 0 0-0.8 10 ^3/uL Basophils # (Auto) 0 0-0.2 10 ^3/uL Nucleated Red Blood Cells 0.2 % Sodium Level 141 136-145 mmol/L Potassium Level 4.3 3.5-5.1 mmol/L Chloride Level 107 98-107 mmol/L Carbon Dioxide Level 18 L 20-31 mmol/L Anion Gap 16 H 5-15 Blood Urea Nitrogen 23 9-23 mg/dL Creatinine 2.08 H 0.700-1.30 mg/dL Glomerular Filtration Rate Calc 43 >90 mL/min BUN/Creatinine Ratio 11.1 10.0-20.0 Serum Glucose 160 H 74-106 mg/dL Calcium Level 11.5 H 8.7-10.4 mg/dL Total Bilirubin 0.6 0.2-1.0 mg/dL Aspartate Amino Transferase (AST) 24 13-40 U/L Alanine Aminotransferase (ALT) 34 7-40 U/L Alkaline Phosphatase 118 H 46-116 U/L Total Protein 9.9 H 5.7-8.2 g/dL Albumin 6.0 H 3.2-4.8 g/dL Lipase 32 12-53 U/L Exam: CT CT AB PEL WO CON-NO ORAL OR IV History: abd pain Comparison Study: CT CT AB PEL WO CON-NO ORAL OR IV on DOS: 02/12/23, CT CT AB PEL WO CON-NO ORAL OR IV on DOS: 7/8/23 Technique: Multidetector spiral CT of the abdomen and pelvis was performed from lung bases to pubic symphysis. Imaging was performed without IV contrast. Axial, coronal and sagittal multiplanar reformats were obtained from the axial data set by the technologist. Radiation dose : Abdomen/Pelvis: CTDIvol 9.67 mGy, DLP 522.53 mGy*cm. Findings: Evaluation of solid organs is limited due to lack of intravenous contrast use. Lung Bases: No acute or significant lung base finding. Normal heart size. No pleural or pericardial effusion. Liver: The liver is normal in size. No focal lesions. Gallbladder and biliary Tree: Sludge in the gallbladder. Spleen: Unremarkable Pancreas: The pancreas is grossly normal in appearance. Adrenal Glands: Unremarkable Kidneys: Kidneys are grossly normal without calculi or hydronephrosis. Bladder: Grossly unremarkable for degree of distention. Bowel: The stomach is grossly normal in appearance. Small bowel and colon are normal in caliber and distribution. Normal appendix is visualized in the right lower quadrant without findings of appendicitis. Wall thickening of the right and transverse colon. Ascites: Absent Lymphadenopathy: Subcentimeter mesenteric and right lower quadrant lymph nodes. Abdominal wall and Mesentery: Unremarkable. Vasculature: The visualized abdominal aorta is normal in size and caliber. Evaluation of abdominal and pelvic vessels is limited due to lack of intravenous contrast. Pelvic Organs: Unremarkable Musculoskeletal: Subtle mixed sclerotic and lucent lesion in the T12 vertebral body unchanged dating back to 2022. IMPRESSION: 1. No definite acute abdominal or pelvic findings. 2. Wall thickening of the right and transverse colon could be due to underdistention. Infectious or inflammatory colitis could have a similar appearance. Clinical correlation and continued follow-up is recommended. Appearance is similar to prior exam from 2002. 3. Mesenteric and right lower quadrant lymphadenopathy can be seen with mesenteric adenitis. Clinical correlation and continued follow-up is recommend ed. Appearance is similar to prior exam from 2022. 4. Likely hemangioma in the T12 vertebral body. This can be further evaluated with MRI of the thoracic spine with and without contrast. 5. Sludge in the gallbladder. INDICATION: epigastric pain, nausea, vomiting TECHNIQUE: Multiple real-time sonographic images were obtained of the right upper quadrant. COMPARISON: None FINDINGS: The liver demonstrates homogenous echotexture without focal mass lesions. The liver measures 14 cm. There is 0.4 intrahepatic or extrahepatic ductal dilatation. The common duct measures 4 mm. Gallstones. There is no gallbladder wall thickening with gallbladder wall measuring 2 mm. The right kidney measures 9.6 cm. The right kidney is normal in contour, size, and shape. The echogenicity is normal. There is no hydronephrosis. The pancreas is not well visualized due to overlying bowel gas. Evaluation is limited as patient was unable to tolerate exam. IMPRESSION: Cholelithiasis without sonographic evidence of acute cholecystitis. 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 VERENICE History of pyloric stenosis History of gastritis Plan Admit to med surge IV antibiotics-Zosyn Antiemetics Pain management NS 1 L given ED IV fluids UDS Ultrasound gallbladder Lipase UA CT abdomen and pelvis Diet No home meds to reconciled PPIs Discussed plan of care with patient and nurse Rounding team to decide if MRI thoracic spine necessary if symptomatic or cord compression Counseled patient on cessation of marijuana use Plan discussed with: Patient My Orders Orders - MILI HERNANDEZ Procedure Category Date Status Time Ct Ab Pel Wo Con-No CT 06/08/24 Resulted Oral Or Iv 11:07 Urinalysis LAB 06/08/24 Logged 11:07 Date of Service: Jun 08, 2024 Billing Provider: MILI HERNANDEZ Common Visit Codes: [id number] INP/OBS CARE (HIGH) MILI HERNANDEZ Jun 08, 2024 12:12
[2024-06-08] MEDS: SODIUM CHLORIDE 0.9% 1,000 ML IV SCH (12:59)
[2024-06-08] MEDS: PIPERACILLIN-TAZOB 3.375GM 100 ML IV ONE (13:04)
[2024-06-08] MEDS: HYDROcodone-ACET 5/325MG TAB PO PRN (13:28)
[2024-06-08] MEDS: ONDANSETRON HCL 4 MG/2 ML VIAL IV PRN (14:09)
[2024-06-08 14:43] LABS: Erythrocyte Sedimentation Rate 13 mm/hr (0-20)
[2024-06-08] MEDS: MORPHINE SULFATE INJ 2 MG/ml SYRG IV PRN (15:06)
[2024-06-08] MEDS ORDERED: PANT40T PO (15:08)
[2024-06-08] MEDS: PIPERACILLIN-TAZOB 3.375GM 100 ML IV SCH (17:22)
[2024-06-08 19:30] LABS: Urine Bacteria None Seen /hpf (None Seen)
[2024-06-08 19:51] LABS: Cannabinoid Screen, Urine Pos (NEGATIVE)
[2024-06-08 19:54] LABS: Urine Amorphous Crystal FEW /hpf (None Seen); Urine Blood Negative /uL (Negative); Urine Clarity Ex.Turbid (Clear); Urine Color Yellow (Yellow); Urine Mucus FEW (None Seen); Urine Protein, UAD 1+ (Negative); Urine Specific Gravity 1.036 (1.001-1.035); Urine Squamous Epithelial Cell FEW /hpf (<5); Urine Urobilinogen Normal (Negative); Urine WBC 24 /HPF (0-3); Urine pH 5.5 (5.0-9.0)
[2024-06-08 19:56] LABS: Amphetamine Screen, Urine Neg (NEGATIVE); Barbiturate Scree,Urine Neg (NEGATIVE); Benzodiazephine Screen, Urine Neg (NEGATIVE); Cocaine Screen, Urine Neg (NEGATIVE); Opiate Scree,Urine Pos (NEGATIVE); Phencyclidine Screen, Urine Neg (NEGATIVE)
[2024-06-09 06:03] LABS: Basophils # (auto) 0.1 10 ^3/uL (0-0.2); Basophils % (auto) 0.6 % (0.0-2.0); Eosinophils # (auto) 0.1 10 ^3/uL (0-0.8); Eosinophils % (auto) 0.4 % (0.0-7.0); Hematocrit 52.1 % (41.0-53.0); Hemoglobin 16.7 g/dL (13.5-17.5); Lymphocytes # (auto) 2.1 10 ^3/uL (0.4-5.4); Lymphocytes % (auto) 15.7 % (10.0-50.0); Mean Corpuscular Hemoglobin 28.6 pg (28.0-32.0); Mean Corpuscular Hgb Conc. 32.1 g/dL (32.0-36.0); Monocytes # (auto) 1.1 10 ^3/uL (0-1.3); Monocytes % (auto) 8.3 % (0.0-12.0); Neutrophils # (auto) 9.9 10 ^3/uL (1.6-8.6); Nucleated Red Blood Cells % 0.1 %; Platelet Count (auto) 270 10^3/uL (140-450); Red Blood Cells 5.86 10^6/uL (4.5-5.90); Red Cell Distribution Width 15.2 % (11.8-14.3); White Blood Cell 13.2 10^3/uL (4.4-10.8)
[2024-06-09 06:38] LABS: Alanine Aminotransferase 27 U/L (7-40); Alkaline Phosphatase 94 U/L (46-116); Anion Gap 11 (5-15); Aspartate Aminotransferase 26 U/L (13-40); BUN/Creatinine Ratio 15.2 (10.0-20.0); Blood Urea Nitrogen 21 mg/dL (9-23); Calcium 10.4 mg/dL (8.7-10.4); Carbon Dioxide 21 mmol/L (20-31); Potassium 4.4 mmol/L (3.5-5.1); Sodium 142 mmol/L (136-145)
[2024-06-09 06:39] LABS: Bilirubin, Total 0.8 mg/dL (0.2-1.0); Chloride 110 mmol/L (98-107); Glucose 114 mg/dL (74-106)
[2024-06-09 06:40] LABS: Albumin 5.1 g/dL (3.2-4.8); Total Protein 8.5 g/dL (5.7-8.2)
[2024-06-09 08:00] VITALS: PULSE 77; RESP 20; O2SAT 95
[2024-06-09 08:32] VITALS: BP 112/85; PULSE 77; RESP 20; TEMP 98; O2SAT 95
[2024-06-09] MEDS: PANTOPRAZOLE 40 MG/10 ML VIAL INJ IV SCH (10:51)
--- NOTE | 2024-06-09 11:04 | DVHPN2 ---
Reviewed: Care Plan, H&P, Labs, Medications, Previous Orders, Radiology Changes from previous H/P or p: No Changes Gastrointestinal: Nausea, Vomiting, Abdominal Pain, Constipation Objective Vitals Vital Signs Date Time Temp Pulse Resp B/P (MAP) Pulse Ox O2 Delivery O2 Flow Rate FiO2 06/09/24 08:32 98.0 77 20 112/85 (94) 95 98.0 06/08/24 20:00 Room Air* 0 21 Intake/Output Intake and Output 06/09/24 07:00 Intake Total 200 ml Balance 200 ml Intake Oral 100 ml IV Total 100 ml # Voids 1 Medications Current Medications Medications Dose Ordered Sig/Jack Route Start Time Stop Time Status Last Admin Dose Admin Sodium Chloride 1,000 ml @ 100 mls/hr Q10H IV 06/08/24 12:00 06/09/24 10:52 100 MLS/HR Piperacillin Sod/ Tazobactam Sod 100 ml @ 25 mls/hr Q8HR IV 06/08/24 16:00 06/09/24 05:27 25 MLS/HR Acetaminophen/ Hydrocodone Bitart 1 tab Q4HP PRN PO 06/08/24 12:00 06/08/24 18:55 1 TAB Ondansetron HCl 4 mg Q4HP PRN IV 06/08/24 12:00 06/09/24 05:02 4 MG Acetaminophen 650 mg Q6HP PRN PO 06/08/24 12:00 Morphine Sulfate 2 mg Q4HPRN PRN IV 06/08/24 12:00 06/09/24 05:26 2 MG Pantoprazole Sodium 40 mg DAILY IV 06/09/24 10:00 06/09/24 10:51 40 MG Laboratory Results Laboratory Tests 06/09/24 04:47 Chemistry Test 06/09/24 04:47 Albumin 5.1 g/dL (3.2-4.8) H Calcium Level 10.4 mg/dL (8.7-10.4) Total Protein 8.5 g/dL (5.7-8.2) H LFT Test 06/09/24 04:47 Alanine Aminotransferase (ALT) 27 U/L (7-40) Alkaline Phosphatase 94 U/L (46-116) Aspartate Amino Transferase (AST) 26 U/L (13-40) Total Bilirubin 0.8 mg/dL (0.2-1.0) Urinalysis Test 06/08/24 15:13 Urine Color Yellow (Yellow) Urine Clarity Ex.turbid (Clear) Urine pH 5.5 (5.0-9.0) Urine Specific [place] 1.036 (1.001-1.035) Urine Protein 1+ (Negative) H Urine Ketones 2+ (Negative) H Urine Blood Negative /uL (Negative) Urine Nitrite Negative (Negative) Urine Bilirubin Negative (Negative) Urine Urobilinogen Normal mg/dL (Negative) Urine Leukocyte Esterase 1+ /uL (Negative) Urine RBC 6 /hpf (0 - 3) Urine Microscopic WBC 24 /HPF (0-3) H Urine Squamous Epithelial Cells Few /hpf (<5) Urine Calcium Oxalate Crystals Few (None Seen) Urine Amorphous Crystals Few /hpf (None Seen) Urine Bacteria None seen /hpf (None Seen) Urine Mucus Few (None Seen) Urine Glucose Trace mg/dL (Normal) Labs and/or images reviewed: Labs reviewed by me, Image(s) reviewed by me Assessment/Plan Assessment/Plan Acute abdominal pain Sepsis etiology with the elevated white count continue Zosyn Stones Rule out cholecystitis: HIDA scan GI consult for Marijuana abuse: Lipase normal History of gastritis History of pyloric stenosis Acute dehydration: IV fluids Plan discussed with: Patient Date of Service: Jun 09, 2024 Billing Provider: OLGA DOUGLAS MD Common Visit Codes: [id number] INP/OBS CARE(HIGH) OLGA DOUGLAS MD Jun 09, 2024 11:04
[2024-06-09 12:40] VITALS: BP 134/89; PULSE 72; RESP 20; TEMP 98.9; O2SAT 98
--- NOTE | 2024-06-09 13:54 | DVHINCON2 ---
Date of service: Jun 09, 2024 Referring Physician Josselyn Dos Santos Reason for Consultation Abdominal pain History of Present Illness Patient is a 28-year-old male with a past medical history significant only for pyloric stenosis and gastritis, who has been having several days of abdominal pain nausea or vomiting. Patient thinks it might be due to the Chick pushpa a that he ate Imaging studies show mesenteric lymphadenitis and possible colitis. Patient denies any hematochezia, hematemesis, dysphagia or odynophagia. Patient underwent endoscopy with Dr. Pleitez in last year showing ileitis. Patient states that he is not aware of the diagnosis as he has not had a follow up with Dr. Pleitez since that procedure. Patient is not on any medications, Past Medical History As above Past Surgical History As above Family History No gastrointestinal diseases or malignancies Social History Significant marijuana use, denies significant tobacco or alcohol use Allergies: Coded Allergies: NO KNOWN ALLERGIES (Unverified , 09/25/22) Home Meds Reported Medications Pantoprazole Sodium Sesquihydr (Pantoprazole Sodium) 40 Mg Tab, 1 TAB PO DAILY for ACID REFLUX 06/08/24 Hydrocodone-Acetaminophen (Hydrocodone/Acetaminophen 10-325 mg) 1 Tab Tab, 1 TAB PO PRN for PAIN, TAB 03/12/24 Current Medications Current Medications Medications (Trade) Dose Ordered Sig/Jack Route PRN Reason Start Time Stop Time Status Last Admin Piperacillin Sod/ Tazobactam Sod 100 ml @ 25 mls/hr Q8HR IV 06/08/24 16:00 06/09/24 05:27 Pantoprazole Sodium (Protonix) 40 mg DAILY IV 06/09/24 10:00 06/09/24 10:51 Review of Systems 12 point review of systems negative other than HPI Vital Signs Vital Signs Date Time Temp Pulse Resp B/P (MAP) Pulse Ox O2 Delivery O2 Flow Rate FiO2 06/09/24 12:40 98.9 72 20 134/89 (104) 98 98.9 06/09/24 08:00 Room Air* 0 21 Physical Exam General: Alert and oriented mild distress HEENT: NC/AT PERRLA O/P clear no JVD Heart: Regular rate and rhythm Abdomen: Soft moderate epigastric tenderness to palpation, voluntary guarding Extremity: No clubbing cyanosis or edema Labs/Diagnostic Data Labs Test 06/09/24 04:47 06/08/24 15:13 06/08/24 13:37 06/08/24 09:54 Range/Units White Blood Count 13.2 H 4.4-10.8 10^3/uL Red Blood Count 5.86 4.5-5.90 10^6/uL Hemoglobin 16.7 13.5-17.5 g/dL Hematocrit 52.1 41.0-53.0 % Mean Corpuscular Volume 89.0 80.0-100.0 fL Mean Corpuscular Hemoglobin 28.6 28.0-32.0 pg Mean Corpuscular Hemoglobin Concent 32.1 32.0-36.0 g/dL Red Cell Distribution Width 15.2 H 11.8-14.3 % Platelet Count 270 140-450 10^3/uL Mean Platelet Volume 9.6 6.9-10.8 fL Neutrophils (%) (Auto) 75.0 37.0-80.0 % Lymphocytes (%) (Auto) 15.7 10.0-50.0 % Monocytes (%) (Auto) 8.3 0.0-12.0 % Eosinophils (%) (Auto) 0.4 0.0-7.0 % Basophils (%) (Auto) 0.6 0.0-2.0 % Neutrophils # (Auto) 9.9 H 1.6-8.6 10 ^3/uL Lymphocytes # (Auto) 2.1 0.4-5.4 10 ^3/uL Monocytes # (Auto) 1.1 0-1.3 10 ^3/uL Eosinophils # (Auto) 0.1 0-0.8 10 ^3/uL Basophils # (Auto) 0.1 0-0.2 10 ^3/uL Nucleated Red Blood Cells 0.1 % Sodium Level 142 136-145 mmol/L Potassium Level 4.4 3.5-5.1 mmol/L Chloride Level 110 H 98-107 mmol/L Carbon Dioxide Level 21 20-31 mmol/L Anion Gap 11 5-15 Blood Urea Nitrogen 21 9-23 mg/dL Creatinine 1.38 H 0.700-1.30 mg/dL Glomerular Filtration Rate Calc 71 >90 mL/min BUN/Creatinine Ratio 15.2 10.0-20.0 Serum Glucose 114 H 74-106 mg/dL Calcium Level 10.4 8.7-10.4 mg/dL Total Bilirubin 0.8 0.2-1.0 mg/dL Aspartate Amino Transferase (AST) 26 13-40 U/L Alanine Aminotransferase (ALT) 27 7-40 U/L Alkaline Phosphatase 94 46-116 U/L Total Protein 8.5 H 5.7-8.2 g/dL Albumin 5.1 H 3.2-4.8 g/dL Urine Color Yellow Yellow Urine Clarity Ex.turbid Clear Urine pH 5.5 5.0-9.0 Urine Specific [place] 1.036 H 1.001-1.035 Urine Protein 1+ H Negative Urine Ketones 2+ H Negative Urine Blood Negative Negative /uL Urine Nitrite Negative Negative Urine Bilirubin Negative Negative Urine Urobilinogen Normal Negative mg/dL Urine Leukocyte Esterase 1+ Negative /uL Urine RBC 6 0 - 3 /hpf Urine Microscopic WBC 24 H 0-3 /HPF Urine Squamous Epithelial Cells Few <5 /hpf Urine Calcium Oxalate Crystals Few None Seen Urine Amorphous Crystals Few None Seen /hpf Urine Bacteria None seen None Seen /hpf Urine Mucus Few None Seen Urine Glucose Trace Normal mg/dL Urine Opiates Screen Pos NEGATIVE Urine Fentanyl Screen Pos NEGATIVE Urine Barbiturates Screen Neg NEGATIVE Urine Phencyclidine Screen Neg NEGATIVE Urine Amphetamines Screen Neg NEGATIVE Urine Benzodiazepines Screen Neg NEGATIVE Urine Cocaine Screen Neg NEGATIVE Urine Cannabinoids Screen Pos NEGATIVE Erythrocyte Sedimentation Rate 13 0-20 mm/hr Lactic Acid Level 1.9 0.4-2.0 mmol/L Lipase 32 12-53 U/L IMPRESSION: 1. No definite acute abdominal or pelvic findings. 2. Wall thickening of the right and transverse colon could be due to underdistention. Infectious or inflammatory colitis could have a similar a ppearance. Clinical correlation and continued follow-up is recommended. Appearance is similar to prior exam from 2002. 3. Mesenteric and right lower quadrant lymphadenopathy can be seen with mesenteric adenitis. Clinical correlation and continued follow-up is recommended. Appearance is similar to prior exam from 2022. 4. Likely hemangioma in the T12 vertebral body. This can be further evaluated with MRI of the thoracic spine with and without contrast. 5. Sludge in the gallbladder. Radiation optimization: All CT scans at this facility use at least one of these dose optimization techniques: Automated exposure control mA and/or kV adjustment per patient size (includes targeted exams where dose is matched to clinical indication) or iterative reconstruction. Assessment 1. Abdominal pain 2. Abnormal imagin. Mesenteric lymphadenitis 4. Nausea and vomiting Patient had ileitis on colonoscopy and he has not had follow-up. He most likely has Crohn's disease that is currently untreated. Problems(with codes): (1) Abdominal pain (2) Acute kidney injury (3) Acute abdominal pain (4) Gastritis (5) Gastroenteritis (6) Mesenteric adenitis (7) N&V (nausea and vomiting) (8) Cannabis abuse Plan/Recommendation 1. IV steroids, Solu-Medrol 60 mg q.8 hours 2. Antibiotics 3. Clear liquid diet as tolerated 4. Pain Control 5. Antiemetics 6. Hold off on EGD or colonoscopy at this time 7. I will follow the patient and signed off to Dr. Pleitez this Tuesday. 8. Follow labs Plan discussed with: Patient RENETTA LAKE MD Jun 09, 2024 13:54
[2024-06-09 16:50] VITALS: BP 132/81; PULSE 71; RESP 20; TEMP 98.6; O2SAT 92
[2024-06-09] MEDS: SODIUM CHLORIDE 0.9% 1,000 ML IV SCH (19:15)
[2024-06-09 20:00] VITALS: PULSE 90; RESP 18; O2SAT 97
[2024-06-09 21:00] VITALS: BP 107/69; PULSE 58; RESP 18; TEMP 98.6; O2SAT 97
[2024-06-09] MEDS: methylPREDNISolone SOD SUCC 125 MG/2 ML VL IV SCH (21:45)
[2024-06-10] VITALS (8 sets, daily range): BP systolic 93–134; BP diastolic 56–84; PULSE 60–84; RESP 17–20; TEMP 97.6–99.1; O2SAT 95–100
--- NOTE | 2024-06-10 10:33 | DVHPN2 ---
Reviewed: Care Plan, H&P, Labs, Medications, Previous Orders, Radiology Changes from previous H/P or p: No Changes Gastrointestinal: Nausea, Vomiting, Abdominal Pain, Constipation Objective Vitals Vital Signs Date Time Temp Pulse Resp B/P (MAP) Pulse Ox O2 Delivery O2 Flow Rate FiO2 06/10/24 08:52 98.6 62 20 115/71 (86) 96 98.6 06/10/24 08:00 Room Air* 0 21 Intake/Output Intake and Output 06/10/24 07:00 Intake Total 568 ml Balance 568 ml Intake Oral 568 ml # Voids 3 Medications Current Medications Medications Dose Ordered Sig/Jack Route Start Time Stop Time Status Last Admin Dose Admin Piperacillin Sod/ Tazobactam Sod 100 ml @ 25 mls/hr Q8HR IV 06/08/24 16:00 06/10/24 05:39 25 MLS/HR Acetaminophen/ Hydrocodone Bitart 1 tab Q4HP PRN PO 06/08/24 12:00 06/09/24 14:39 1 TAB Ondansetron HCl 4 mg Q4HP PRN IV 06/08/24 12:00 06/10/24 06:30 4 MG Acetaminophen 650 mg Q6HP PRN PO 06/08/24 12:00 Morphine Sulfate 2 mg Q4HPRN PRN IV 06/08/24 12:00 06/10/24 05:38 2 MG Pantoprazole Sodium 40 mg DAILY IV 06/09/24 10:00 06/09/24 10:51 40 MG Methylprednisolone Sodium Succinate 60 mg Q8HR IV 06/09/24 22:00 06/10/24 05:29 60 MG Sodium Chloride 1,000 ml @ 150 mls/hr Q6H40M IV 06/09/24 19:15 06/10/24 01:55 150 MLS/HR Laboratory Results Laboratory Tests 06/09/24 04:47 Urinalysis Test 06/08/24 15:13 Urine Color Yellow (Yellow) Urine Clarity Ex.turbid (Clear) Urine pH 5.5 (5.0-9.0) Urine Specific [place] 1.036 (1.001-1.035) Urine Protein 1+ (Negative) H Urine Ketones 2+ (Negative) H Urine Blood Negative /uL (Negative) Urine Nitrite Negative (Negative) Urine Bilirubin Negative (Negative) Urine Urobilinogen Normal mg/dL (Negative) Urine Leukocyte Esterase 1+ /uL (Negative) Urine RBC 6 /hpf (0 - 3) Urine Microscopic WBC 24 /HPF (0-3) H Urine Squamous Epithelial Cells Few /hpf (<5) Urine Calcium Oxalate Crystals Few (None Seen) Urine Amorphous Crystals Few /hpf (None Seen) Urine Bacteria None seen /hpf (None Seen) Urine Mucus Few (None Seen) Urine Glucose Trace mg/dL (Normal) Labs and/or images reviewed: Labs reviewed by me, Image(s) reviewed by me Assessment/Plan Assessment/Plan Acute abdominal pain Sepsis ?etiology with the elevated white count continue Zosyn Gallstones rule out acute cholecystitis HIDA scan pending GI consult for appreciated Marijuana abuse: Lipase normal History of gastritis History of colonoscopy February [address] Tiny Pleitez; pt did not follow up Ileatis: possible Crohn's disease Solu-Medrol History of pyloric stenosis Acute dehydration: IV fluids Plan discussed with: Patient My Orders Orders - OLGA DOUGLAS MD Procedure Category Date Status Time Nm Hida Scan NM 06/09/24 Logged 10:59 * [facility] Customer Experience Intern CONS 06/09/24 Transmitted 11:04 Sodium Chloride 0.9% PHA 06/09/24 In Process 19:15 Date of Service: Jun 10, 2024 Billing Provider: OLGA DOUGLAS MD Common Visit Codes: [id number] INP/OBS CARE(HIGH) OLGA DOUGLAS MD Jun 10, 2024 10:33
--- NOTE | 2024-06-10 15:29 | PRN ---
Misceleneous Note Note Note June 10, 2024 Subjective: Patient is feeling better but he still has pain. He is tolerating clear liquid diet. Current Medications Medications (Trade) Dose Ordered Sig/Jack Route PRN Reason Start Time Stop Time Status Last Admin Methylprednisolone Sodium Succinate (Solu Medrol) 60 mg Q8HR IV 06/09/24 22:00 06/10/24 14:07 Sodium Chloride 1,000 ml @ 150 mls/hr Q6H40M IV 06/09/24 19:15 06/10/24 12:27 Vital Signs Date Time Temp Pulse Resp B/P (MAP) Pulse Ox O2 Delivery O2 Flow Rate FiO2 06/10/24 12:26 99.1 84 20 125/84 (98) 99 99.1 06/10/24 08:00 Room Air* 0 21 Physical exam: General: Alert and oriented x4 no distress HEENT: NC/AT EOMI Heart: Regular rate and rhythm Abdomen: Soft mild diffuse tenderness to palpation Extremity: No clubbing cyanosis or edema Labs Test 06/09/24 04:47 06/08/24 15:13 06/08/24 13:37 06/08/24 09:54 Range/Units White Blood Count 13.2 H 4.4-10.8 10^3/uL Red Blood Count 5.86 4.5-5.90 10^6/uL Hemoglobin 16.7 13.5-17.5 g/dL Hematocrit 52.1 41.0-53.0 % Mean Corpuscular Volume 89.0 80.0-100.0 fL Mean Corpuscular Hemoglobin 28.6 28.0-32.0 pg Mean Corpuscular Hemoglobin Concent 32.1 32.0-36.0 g/dL Red Cell Distribution Width 15.2 H 11.8-14.3 % Platelet Count 270 140-450 10^3/uL Mean Platelet Volume 9.6 6.9-10.8 fL Neutrophils (%) (Auto) 75.0 37.0-80.0 % Lymphocytes (%) (Auto) 15.7 10.0-50.0 % Monocytes (%) (Auto) 8.3 0.0-12.0 % Eosinophils (%) (Auto) 0.4 0.0-7.0 % Basophils (%) (Auto) 0.6 0.0-2.0 % Neutrophils # (Auto) 9.9 H 1.6-8.6 10 ^3/uL Lymphocytes # (Auto) 2.1 0.4-5.4 10 ^3/uL Monocytes # (Auto) 1.1 0-1.3 10 ^3/uL Eosinophils # (Auto) 0.1 0-0.8 10 ^3/uL Basophils # (Auto) 0.1 0-0.2 10 ^3/uL Nucleated Red Blood Cells 0.1 % Sodium Level 142 136-145 mmol/L Potassium Level 4.4 3.5-5.1 mmol/L Chloride Level 110 H 98-107 mmol/L Carbon Dioxide Level 21 20-31 mmol/L Anion Gap 11 5-15 Blood Urea Nitrogen 21 9-23 mg/dL Creatinine 1.38 H 0.700-1.30 mg/dL Glomerular Filtration Rate Calc 71 >90 mL/min BUN/Creatinine Ratio 15.2 10.0-20.0 Serum Glucose 114 H 74-106 mg/dL Calcium Level 10.4 8.7-10.4 mg/dL Total Bilirubin 0.8 0.2-1.0 mg/dL Aspartate Amino Transferase (AST) 26 13-40 U/L Alanine Aminotransferase (ALT) 27 7-40 U/L Alkaline Phosphatase 94 46-116 U/L Total Protein 8.5 H 5.7-8.2 g/dL Albumin 5.1 H 3.2-4.8 g/dL Urine Color Yellow Yellow Urine Clarity Ex.turbid Clear Urine pH 5.5 5.0-9.0 Urine Specific [place] 1.036 H 1.001-1.035 Urine Protein 1+ H Negative Urine Ketones 2+ H Negative Urine Blood Negative Negative /uL Urine Nitrite Negative Negative Urine Bilirubin Negative Negative Urine Urobilinogen Normal Negative mg/dL Urine Leukocyte Esterase 1+ Negative /uL Urine RBC 6 0 - 3 /hpf Urine Microscopic WBC 24 H 0-3 /HPF Urine Squamous Epithelial Cells Few <5 /hpf Urine Calcium Oxalate Crystals Few None Seen Urine Amorphous Crystals Few None Seen /hpf Urine Bacteria None seen None Seen /hpf Urine Mucus Few None Seen Urine Glucose Trace Normal mg/dL Urine Opiates Screen Pos NEGATIVE Urine Fentanyl Screen Pos NEGATIVE Urine Barbiturates Screen Neg NEGATIVE Urine Phencyclidine Screen Neg NEGATIVE Urine Amphetamines Screen Neg NEGATIVE Urine Benzodiazepines Screen Neg NEGATIVE Urine Cocaine Screen Neg NEGATIVE Urine Cannabinoids Screen Pos NEGATIVE Erythrocyte Sedimentation Rate 13 0-20 mm/hr Lactic Acid Level 1.9 0.4-2.0 mmol/L Lipase 32 12-53 U/L Impression: 1. Mesenteric adenitis 2. Ileitis on colonoscopy 3. Abdominal pain 4. Possible colitis on CT 5. Cholelithiasis Recommendations: 1. Continue with Solu-Medrol 2. Continue with clear liquid diet 3. We will be signing off to Dr. Pleitez in the morning 4. Pain control 5. Consider switching patient to p.o. prednisone in a few days. RENETTA LAKE MD Jun 10, 2024 15:29
[2024-06-11] VITALS (8 sets, daily range): BP systolic 106–137; BP diastolic 62–92; PULSE 57–86; RESP 18–22; TEMP 97.7–99; O2SAT 94–100
--- NOTE | 2024-06-11 09:38 | DVH ---
Procedure: NM NM HIDA SCAN Exam Date: 06/11/2024 07:59 AM Clinical History: Abdominal pain ruled out cholecystitis Comparison Study: CT dated 06/08/2024 Nuclear Medicine Hepatobiliary Scan. Technique: Following the intravenous administration of 4.1 mCi of technetium 99m labeled Choletec multiple plana r abdominal planar images were obtained in anterior projection in 5 minute intervals for45 minutes . Right lateral images were obtained at 45 minutes after injection. Findings: The liver appears grossly normal in size. There is no abnormal persistence of the cardiac or blood po ol activity. There is prompt visualization of the gallbladder and excretion of activity into the smal l bowel. Impression: Unremarkable hepatobiliary study without evidence of acute cholecystitis.
--- NOTE | 2024-06-11 11:49 | DVHPN2 ---
Reviewed: Care Plan, H&P, Labs, Medications, Previous Orders, Radiology Changes from previous H/P or p: No Changes Gastrointestinal: Nausea, Vomiting, Abdominal Pain, Constipation Objective Vitals Vital Signs Date Time Temp Pulse Resp B/P (MAP) Pulse Ox O2 Delivery O2 Flow Rate FiO2 06/11/24 10:26 64 16 136/71 06/11/24 09:00 06/10/24 20:00 Room Air* 0 21 Intake/Output Intake and Output 06/11/24 07:00 Intake Total 2110 ml Balance 2110 ml Intake Oral 1010 ml IV Total 1100 ml # Voids 3 # Bowel Movements 2 Medications Current Medications Medications Dose Ordered Sig/Jack Route Start Time Stop Time Status Last Admin Dose Admin Piperacillin Sod/ Tazobactam Sod 100 ml @ 25 mls/hr Q8HR IV 06/08/24 16:00 06/11/24 05:38 25 MLS/HR Ondansetron HCl 4 mg Q4HP PRN IV 06/08/24 12:00 06/11/24 10:25 4 MG Acetaminophen 650 mg Q6HP PRN PO 06/08/24 12:00 Morphine Sulfate 2 mg Q4HPRN PRN IV 06/08/24 12:00 06/11/24 10:26 2 MG Pantoprazole Sodium 40 mg DAILY IV 06/09/24 10:00 06/11/24 10:25 40 MG Methylprednisolone Sodium Succinate 60 mg Q8HR IV 06/09/24 22:00 06/11/24 05:36 60 MG Sodium Chloride 1,000 ml @ 150 mls/hr Q6H40M IV 06/09/24 19:15 06/11/24 10:38 150 MLS/HR Laboratory Results Laboratory Tests 06/09/24 04:47 Urinalysis Test 06/08/24 15:13 Urine Color Yellow (Yellow) Urine Clarity Ex.turbid (Clear) Urine pH 5.5 (5.0-9.0) Urine Specific [place] 1.036 (1.001-1.035) Urine Protein 1+ (Negative) H Urine Ketones 2+ (Negative) H Urine Blood Negative /uL (Negative) Urine Nitrite Negative (Negative) Urine Bilirubin Negative (Negative) Urine Urobilinogen Normal mg/dL (Negative) Urine Leukocyte Esterase 1+ /uL (Negative) Urine RBC 6 /hpf (0 - 3) Urine Microscopic WBC 24 /HPF (0-3) H Urine Squamous Epithelial Cells Few /hpf (<5) Urine Calcium Oxalate Crystals Few (None Seen) Urine Amorphous Crystals Few /hpf (None Seen) Urine Bacteria None seen /hpf (None Seen) Urine Mucus Few (None Seen) Urine Glucose Trace mg/dL (Normal) Labs and/or images reviewed: Labs reviewed by me, Image(s) reviewed by me Assessment/Plan Assessment/Plan Acute abdominal pain Sepsis ?etiology with the elevated white count continue Zosyn Gallstones rule out acute cholecystitis HIDA scan negative for cholecystitis GI consult for appreciated Marijuana abuse: Lipase normal History of gastritis History of colonoscopy February [address] Tiny Pleitez; pt did not follow up Ileatis: possible Crohn's disease Solu-Medrol History of pyloric stenosis Acute dehydration: IV fluids ? Start parenteral nutrition Plan discussed with: Patient Date of Service: Jun 11, 2024 Billing Provider: OLGA DOUGLAS MD Common Visit Codes: [id number] INP/OBS CARE(HIGH) OLGA DOUGLAS MD Jun 11, 2024 11:49
--- NOTE | 2024-06-11 22:07 | DVHPN2 ---
Progress Note - Dictate Date Seen: Jun 11, 2024 Medical Necessity Reason Pt with a Central, PICC or Fol: No Subjective No new complaints 2-3 bowel movements reported No GI bleeding reported Patient is tolerating a diet vital signs Vital Sign Date Time Temp Pulse Resp B/P (MAP) Pulse Ox O2 Delivery O2 Flow Rate FiO2 06/11/24 21:05 19 57 137/91 06/11/24 17:00 98.1 100 98.1 06/11/24 08:00 Room Air* 0 21 Total Intake and Output 06/10/24 06/10/24 06/11/24 15:00 23:00 07:00 Intake Total 210 ml 1900 ml Balance 210 ml 1900 ml medications Current Medications Medications Dose Ordered Sig/Jack Route Start Time Stop Time Status Last Admin Dose Admin Piperacillin Sod/ Tazobactam Sod 100 ml @ 25 mls/hr Q8HR IV 06/08/24 16:00 06/11/24 21:56 25 MLS/HR Ondansetron HCl 4 mg Q4HP PRN IV 06/08/24 12:00 06/11/24 20:35 4 MG Acetaminophen 650 mg Q6HP PRN PO 06/08/24 12:00 Morphine Sulfate 2 mg Q4HPRN PRN IV 06/08/24 12:00 06/11/24 20:35 2 MG Pantoprazole Sodium 40 mg DAILY IV 06/09/24 10:00 06/11/24 10:25 40 MG Methylprednisolone Sodium Succinate 60 mg Q8HR IV 06/09/24 22:00 06/11/24 21:56 60 MG Sodium Chloride 1,000 ml @ 150 mls/hr Q6H40M IV 06/09/24 19:15 06/11/24 18:13 150 MLS/HR laboratory and microbiology Laboratory Tests 06/09/24 04:47 Test 06/09/24 04:47 Range/Units Serum Glucose 114 H 74-106 mg/dL Problems(with codes): (1) Acute kidney injury (2) N&V (nausea and vomiting) (3) Abdominal pain (4) Gastroenteritis (5) Gastritis (6) Acute abdominal pain (7) Mesenteric adenitis (8) Cannabis abuse (9) Cholelithiasis Prognosis Plan Continue supportive care CT abdomen and ultrasound do not show advanced liver disease Continue thiamine folic acid PT and INR Monitor labs IV antibiotics IV steroids ongoing I will follow up patient with you as needed Dietary Evaluation Review Recommendations by RD: Protein Supplementation Comments: 1) Initiate Ensure Clear bid d/t decreased appetite. Encourage optimal PO intake. 2) Advance to low-fat diet when medically feasible, pending INSURANCE AGENT approval 3) Follow-up with gastroenterology 4) Continue to monitor I&O, labs, and skin integrity Expected Outcomes/Goals: 1) labs to improve 2) GI symptoms to resolve 3) diet to advance 4) f/u in 2-3 days Plan discussed with: Patient, Other (Dr Ly) REZA JAIMES MD Jun 11, 2024 22:07
[2024-06-12 05:00] VITALS: BP_SYST 125; BP_SYST 138; BP_DIAS 79; BP_DIAS 89; PULSE 86; PULSE 87; RESP 17; RESP 18; TEMP 98.1; TEMP 99.2; O2SAT 95; O2SAT 98
[2024-06-12 09:00] VITALS: BP 124/84; PULSE 63; RESP 20; TEMP 98.4; O2SAT 100
--- NOTE | 2024-06-12 09:40 | DVHPN2 ---
Reviewed: Care Plan, H&P, Labs, Medications, Previous Orders, Radiology Changes from previous H/P or p: No Changes Gastrointestinal: Nausea, Vomiting, Abdominal Pain, Constipation Objective Vitals Vital Signs Date Time Temp Pulse Resp B/P (MAP) Pulse Ox O2 Delivery O2 Flow Rate FiO2 06/12/24 08:50 63 16 124/84 06/12/24 05:00 99.2 98 99.2 06/11/24 20:00 Room Air* 0 21 Intake/Output Intake and Output 06/12/24 07:00 Intake Total 1860 ml Output Total 1300 ml Balance 560 ml Intake Oral 1860 ml Output Urine Total 1300 ml # Voids 4 # Bowel Movements 1 Medications Current Medications Medications Dose Ordered Sig/Jack Route Start Time Stop Time Status Last Admin Dose Admin Piperacillin Sod/ Tazobactam Sod 100 ml @ 25 mls/hr Q8HR IV 06/08/24 16:00 06/12/24 05:44 25 MLS/HR Ondansetron HCl 4 mg Q4HP PRN IV 06/08/24 12:00 06/12/24 08:50 4 MG Acetaminophen 650 mg Q6HP PRN PO 06/08/24 12:00 Morphine Sulfate 2 mg Q4HPRN PRN IV 06/08/24 12:00 06/12/24 08:50 2 MG Pantoprazole Sodium 40 mg DAILY IV 06/09/24 10:00 06/12/24 08:50 40 MG Methylprednisolone Sodium Succinate 60 mg Q8HR IV 06/09/24 22:00 06/12/24 05:44 60 MG Sodium Chloride 1,000 ml @ 150 mls/hr Q6H40M IV 06/09/24 19:15 06/12/24 07:25 150 MLS/HR Laboratory Results Laboratory Tests 06/09/24 04:47 Urinalysis Test 06/08/24 15:13 Urine Color Yellow (Yellow) Urine Clarity Ex.turbid (Clear) Urine pH 5.5 (5.0-9.0) Urine Specific [place] 1.036 (1.001-1.035) Urine Protein 1+ (Negative) H Urine Ketones 2+ (Negative) H Urine Blood Negative /uL (Negative) Urine Nitrite Negative (Negative) Urine Bilirubin Negative (Negative) Urine Urobilinogen Normal mg/dL (Negative) Urine Leukocyte Esterase 1+ /uL (Negative) Urine RBC 6 /hpf (0 - 3) Urine Microscopic WBC 24 /HPF (0-3) H Urine Squamous Epithelial Cells Few /hpf (<5) Urine Calcium Oxalate Crystals Few (None Seen) Urine Amorphous Crystals Few /hpf (None Seen) Urine Bacteria None seen /hpf (None Seen) Urine Mucus Few (None Seen) Urine Glucose Trace mg/dL (Normal) Labs and/or images reviewed: Labs reviewed by me, Image(s) reviewed by me Assessment/Plan Assessment/Plan Acute abdominal pain Sepsis ?etiology with elevated white count continue Zosyn Gallstones rule out acute cholecystitis HIDA scan negative for cholecystitis GI consult for appreciated Marijuana abuse: Lipase normal Gastroenteritis History of gastritis History of colonoscopy February [address] Tiny Pleitez; pt did not follow up Ileatis: possible Crohn's disease Solu-Medrol History of pyloric stenosis Acute dehydration: IV fluids Plan discussed with: Patient Date of Service: Jun 12, 2024 Billing Provider: OLGA DOUGLAS MD Common Visit Codes: [id number] INP/OBS CARE(HIGH) OLGA DOUGLAS MD Jun 12, 2024 09:40
[2024-06-12 13:00] VITALS: BP 137/79; PULSE 59; RESP 20; TEMP 98.3; O2SAT 99
[2024-06-12 17:00] VITALS: BP 132/93; PULSE 65; RESP 20; TEMP 98.6; O2SAT 97
[2024-06-12 20:00] VITALS: RESP 19; O2SAT 97
[2024-06-12 21:00] VITALS: BP 126/76; PULSE 79; RESP 18; TEMP 98.3; O2SAT 97
--- NOTE | 2024-06-12 22:48 | DVHPN2 ---
Progress Note - Dictate Date Seen: Jun 12, 2024 Medical Necessity Reason Pt with a Central, PICC or Fol: No Subjective No new complaints 1-2 bowel movements reported No GI bleeding reported cp lower abd cramping Patient is tolerating a diet vital signs Vital Sign Date Time Temp Pulse Resp B/P (MAP) Pulse Ox O2 Delivery O2 Flow Rate FiO2 06/12/24 21:00 98.3 79 18 126/76 (93) 97 98.3 06/12/24 20:00 Room Air* 0 21 Total Intake and Output 06/11/24 06/11/24 06/12/24 15:00 23:00 07:00 Intake Total 750 ml 1110 ml Output Total 1300 ml Balance 750 ml -190 ml medications Current Medications Medications Dose Ordered Sig/Jack Route Start Time Stop Time Status Last Admin Dose Admin Piperacillin Sod/ Tazobactam Sod 100 ml @ 25 mls/hr Q8HR IV 06/08/24 16:00 06/12/24 21:28 25 MLS/HR Ondansetron HCl 4 mg Q4HP PRN IV 06/08/24 12:00 06/12/24 20:29 4 MG Acetaminophen 650 mg Q6HP PRN PO 06/08/24 12:00 Morphine Sulfate 2 mg Q4HPRN PRN IV 06/08/24 12:00 06/12/24 20:30 2 MG Pantoprazole Sodium 40 mg DAILY IV 06/09/24 10:00 06/12/24 08:50 40 MG Methylprednisolone Sodium Succinate 60 mg Q8HR IV 06/09/24 22:00 06/12/24 21:28 60 MG Sodium Chloride 1,000 ml @ 150 mls/hr Q6H40M IV 06/09/24 19:15 06/12/24 07:25 150 MLS/HR objective Awake and alert Mild abd tenderness laboratory and microbiology Laboratory Tests 06/09/24 04:47 Test 06/09/24 04:47 Range/Units Serum Glucose 114 H 74-106 mg/dL Problems(with codes): (1) Abdominal pain (2) Mesenteric adenitis Prognosis Likely flare up of Crohns ileitis On IV steroids and IV Zosyn Taper down steroids slowly Add trial of Mesalamine Avoid asa nsaids Avoid aspirin and NDAIDS Dietary Evaluation Review Recommendations by RD: Protein Supplementation Comments: 1) Initiate Ensure Clear bid d/t decreased appetite. Encourage optimal PO intake. 2) Advance to low-fat diet when medically feasible, pending TOM[employer] PUL[employer] OPERATOR approval 3) Follow-up with gastroenterology 4) Continue to monitor I&O, labs, and skin integrity Expected Outcomes/Goals: 1) labs to improve 2) GI symptoms to resolve 3) diet to advance 4) f/u in 2-3 days Plan discussed with: Patient REZA JAIMES MD Jun 12, 2024 22:48
[2024-06-13 01:00] VITALS: BP 133/58; PULSE 66; RESP 18; TEMP 97.9; O2SAT 99
[2024-06-13 05:00] VITALS: BP 123/73; PULSE 69; RESP 18; TEMP 97.9; O2SAT 98
[2024-06-13] MEDS: MESALAMINE 400mg Delayed Release Cap PO SCH (05:06)
[2024-06-13 09:00] VITALS: BP 123/80; PULSE 57; RESP 20; TEMP 98.6; O2SAT 94
--- NOTE | 2024-06-13 10:42 | DVHPN2 ---
Reviewed: Care Plan, H&P, Labs, Medications, Previous Orders, Radiology Changes from previous H/P or p: No Changes Gastrointestinal: Nausea, Vomiting, Abdominal Pain, Constipation Objective Vitals Vital Signs Date Time Temp Pulse Resp B/P (MAP) Pulse Ox O2 Delivery O2 Flow Rate FiO2 06/13/24 09:50 62 16 127/65 06/13/24 09:00 98.6 94 98.6 06/13/24 08:04 Room Air* 0 21 Intake/Output Intake and Output 06/13/24 07:00 Intake Total 1600 ml Output Total 3 ml Balance 1597 ml Intake Oral 550 ml IV Total 1050 ml Output Urine Total 2 ml Stool Total 1 ml # Voids 3 Medications Current Medications Medications Dose Ordered Sig/Jack Route Start Time Stop Time Status Last Admin Dose Admin Piperacillin Sod/ Tazobactam Sod 100 ml @ 25 mls/hr Q8HR IV 06/08/24 16:00 06/13/24 05:07 25 MLS/HR Ondansetron HCl 4 mg Q4HP PRN IV 06/08/24 12:00 06/13/24 05:16 4 MG Acetaminophen 650 mg Q6HP PRN PO 06/08/24 12:00 Morphine Sulfate 2 mg Q4HPRN PRN IV 06/08/24 12:00 06/13/24 09:50 2 MG Pantoprazole Sodium 40 mg DAILY IV 06/09/24 10:00 06/13/24 09:49 40 MG Methylprednisolone Sodium Succinate 60 mg Q8HR IV 06/09/24 22:00 06/13/24 05:07 60 MG Sodium Chloride 1,000 ml @ 150 mls/hr Q6H40M IV 06/09/24 19:15 06/13/24 09:51 150 MLS/HR Mesalamine 800 mg TID PO 06/13/24 06:00 06/13/24 05:06 800 MG Laboratory Results Laboratory Tests 06/09/24 04:47 Urinalysis Test 06/08/24 15:13 Urine Color Yellow (Yellow) Urine Clarity Ex.turbid (Clear) Urine pH 5.5 (5.0-9.0) Urine Specific [place] 1.036 (1.001-1.035) Urine Protein 1+ (Negative) H Urine Ketones 2+ (Negative) H Urine Blood Negative /uL (Negative) Urine Nitrite Negative (Negative) Urine Bilirubin Negative (Negative) Urine Urobilinogen Normal mg/dL (Negative) Urine Leukocyte Esterase 1+ /uL (Negative) Urine RBC 6 /hpf (0 - 3) Urine Microscopic WBC 24 /HPF (0-3) H Urine Squamous Epithelial Cells Few /hpf (<5) Urine Calcium Oxalate Crystals Few (None Seen) Urine Amorphous Crystals Few /hpf (None Seen) Urine Bacteria None seen /hpf (None Seen) Urine Mucus Few (None Seen) Urine Glucose Trace mg/dL (Normal) Labs and/or images reviewed: Labs reviewed by me, Image(s) reviewed by me Assessment/Plan Assessment/Plan Acute abdominal pain Sepsis with elevated white count continue Zosyn Gallstones rule out acute cholecystitis HIDA scan negative for cholecystitis GI consult for appreciated Marijuana abuse: Lipase normal Gastroenteritis History of gastritis History of colonoscopy February [address] Tiny Pleitez; pt did not follow up Ileatis: possible Crohn's disease Solu-Medrol, mesalamine History of pyloric stenosis Acute dehydration: IV fluids Pain Management: [place] did not work per patient, changed to morphine, now patient says morphine is not working, we will change to Dilaudid 2 mg IV q.4 hours p.r.n. Plan discussed with: Patient My Orders Orders - OLGA DOUGLAS MD Procedure Category Date Status Time Hydromorphone Hcl Inj PHA 06/13/24 Verified (Dilaudid Innjecti 10:45 Date of Service: Jun 13, 2024 Billing Provider: OLGA DOUGLAS MD Common Visit Codes: [id number] INP/OBS CARE(HIGH) OLGA DOUGLAS MD Jun 13, 2024 10:42
[2024-06-13 13:00] VITALS: BP 100/59; PULSE 59; RESP 16; TEMP 98.4; O2SAT 97
[2024-06-13] MEDS: HYDROMORPHONE HCL 1 MG/ML INJ IV PRN (13:15)
--- NOTE | 2024-06-13 15:53 | MEDREC ---
[facility] Intervention Section I [facility] Intervention: Duplication of therapy (BOTH ZOSYN AND FLAGYL CAN COVER ANAEROBES. PLEASE CONSIDER DE-ESCALATING ANTIBIOTICS DUE TO DUPLICATION) ADA [facility] Jun 13, 2024 15:53
[2024-06-13 16:31] VITALS: BP 121/80; PULSE 55; RESP 16; TEMP 98.4; O2SAT 96
--- NOTE | 2024-06-13 19:06 | DVHPN2 ---
Progress Note - Dictate Date Seen: Jun 13, 2024 Medical Necessity Reason Pt with a Central, PICC or Fol: No Subjective Continued abdominal pain 1-2 bowel movements reported No GI bleeding reported cp lower abd cramping Patient is tolerating a full liquid diet vital signs Vital Sign Date Time Temp Pulse Resp B/P (MAP) Pulse Ox O2 Delivery O2 Flow Rate FiO2 06/13/24 16:31 98.4 55 16 121/80 (94) 96 98.4 06/13/24 08:04 Room Air* 0 21 Total Intake and Output 06/12/24 06/12/24 06/13/24 14:59 22:59 06:59 Intake Total 100 ml 1290 ml 210 ml Output Total 3 ml Balance 100 ml 1290 ml 207 ml medications Current Medications Medications Dose Ordered Sig/Jack Route Start Time Stop Time Status Last Admin Dose Admin Piperacillin Sod/ Tazobactam Sod 100 ml @ 25 mls/hr Q8HR IV 06/08/24 16:00 06/13/24 13:12 25 MLS/HR Ondansetron HCl 4 mg Q4HP PRN IV 06/08/24 12:00 06/13/24 13:30 4 MG Acetaminophen 650 mg Q6HP PRN PO 06/08/24 12:00 Pantoprazole Sodium 40 mg DAILY IV 06/09/24 10:00 06/13/24 09:49 40 MG Methylprednisolone Sodium Succinate 60 mg Q8HR IV 06/09/24 22:00 06/13/24 13:12 60 MG Sodium Chloride 1,000 ml @ 150 mls/hr Q6H40M IV 06/09/24 19:15 06/13/24 09:51 150 MLS/HR Mesalamine 800 mg TID PO 06/13/24 06:00 06/13/24 13:30 800 MG Hydromorphone HCl 2 mg Q4HPRN PRN IV 06/13/24 10:45 06/13/24 13:15 2 MG Metronidazole 100 ml @ 100 mls/hr Q8HR IV 06/13/24 22:00 objective Awake and alert Pupils equal and react to light, extraocular movements intact Lungs clear, CVS S1-S2 regular rate rhythm Mild abd tenderness soft positive bowel sounds Extremities without clubbing cyanosis or edema laboratory and microbiology Laboratory Tests 06/09/24 04:47 Test 06/09/24 04:47 Range/Units Serum Glucose 114 H 74-106 mg/dL Problems(with codes): (1) Crohn's ileitis (2) Mesenteric adenitis (3) Abdominal pain (4) N&V (nausea and vomiting) (5) Cannabis abuse (6) Dehydration Prognosis Plan Advance to soft mechanical diet Check IBD panel Continue mesalamine IV steroids Pain control Outpatient follow up with GI Services to start treatment with biologicals Dietary Evaluation Review Recommendations by RD: Protein Supplementation Comments: 1) Initiate Ensure Clear bid d/t decreased appetite. Encourage optimal PO intake. 2) Advance to low-fat diet when medically feasible, pending MEDICAL SCIENTIFIC LIAISON approval 3) Follow-up with gastroenterology 4) Continue to monitor I&O, labs, and skin integrity Expected Outcomes/Goals: 1) labs to improve 2) GI symptoms to resolve 3) diet to advance 4) f/u in 2-3 days Plan discussed with: Patient REZA JAIMES MD Jun 13, 2024 19:06
[2024-06-13 21:00] VITALS: BP 117/79; PULSE 88; RESP 19; TEMP 98; O2SAT 97
[2024-06-13] MEDS: metroNIDAZOLE 500MG/100ML 100 ML IV SCH (21:27)
[2024-06-14 01:00] VITALS: BP 116/69; PULSE 63; RESP 18; TEMP 97.9; O2SAT 95
[2024-06-14 05:00] VITALS: BP 103/67; PULSE 53; RESP 17; TEMP 97.9; O2SAT 94
[2024-06-14 09:00] VITALS: BP 120/79; PULSE 53; RESP 18; TEMP 97.9; O2SAT 94
--- NOTE | 2024-06-14 10:53 | DVHPN2 ---
Reviewed: Care Plan, H&P, Labs, Medications, Previous Orders, Radiology Changes from previous H/P or p: No Changes Gastrointestinal: Nausea, Vomiting, Abdominal Pain, Constipation Objective Vitals Vital Signs Date Time Temp Pulse Resp B/P (MAP) Pulse Ox O2 Delivery O2 Flow Rate FiO2 06/14/24 09:00 97.9 53 18 120/79 (93) 94 97.9 06/14/24 07:37 Room Air* 0 21 Intake/Output Intake and Output 06/14/24 07:00 Intake Total 1875 ml Balance 1875 ml Intake Oral 1675 ml IV Total 200 ml # Voids 3 # Bowel Movements 2 Medications Current Medications Medications Dose Ordered Sig/Jack Route Start Time Stop Time Status Last Admin Dose Admin Piperacillin Sod/ Tazobactam Sod 100 ml @ 25 mls/hr Q8HR IV 06/08/24 16:00 06/14/24 06:15 25 MLS/HR Ondansetron HCl 4 mg Q4HP PRN IV 06/08/24 12:00 06/13/24 13:30 4 MG Acetaminophen 650 mg Q6HP PRN PO 06/08/24 12:00 Pantoprazole Sodium 40 mg DAILY IV 06/09/24 10:00 06/14/24 10:02 40 MG Methylprednisolone Sodium Succinate 60 mg Q8HR IV 06/09/24 22:00 06/14/24 06:15 60 MG Sodium Chloride 1,000 ml @ 150 mls/hr Q6H40M IV 06/09/24 19:15 06/14/24 06:16 150 MLS/HR Mesalamine 800 mg TID PO 06/13/24 06:00 06/13/24 21:27 800 MG Hydromorphone HCl 2 mg Q4HPRN PRN IV 06/13/24 10:45 06/14/24 02:26 2 MG Metronidazole 100 ml @ 100 mls/hr Q8HR IV 06/13/24 22:00 06/14/24 06:15 100 MLS/HR Laboratory Results Laboratory Tests 06/09/24 04:47 Urinalysis Test 06/08/24 15:13 Urine Color Yellow (Yellow) Urine Clarity Ex.turbid (Clear) Urine pH 5.5 (5.0-9.0) Urine Specific [place] 1.036 (1.001-1.035) Urine Protein 1+ (Negative) H Urine Ketones 2+ (Negative) H Urine Blood Negative /uL (Negative) Urine Nitrite Negative (Negative) Urine Bilirubin Negative (Negative) Urine Urobilinogen Normal mg/dL (Negative) Urine Leukocyte Esterase 1+ /uL (Negative) Urine RBC 6 /hpf (0 - 3) Urine Microscopic WBC 24 /HPF (0-3) H Urine Squamous Epithelial Cells Few /hpf (<5) Urine Calcium Oxalate Crystals Few (None Seen) Urine Amorphous Crystals Few /hpf (None Seen) Urine Bacteria None seen /hpf (None Seen) Urine Mucus Few (None Seen) Urine Glucose Trace mg/dL (Normal) Labs and/or images reviewed: Labs reviewed by me, Image(s) reviewed by me Assessment/Plan Assessment/Plan Acute abdominal pain Ileatis: possible Crohn's disease Solu-Medrol, mesalamine Sepsis with elevated white count continue Zosyn Gallstones rule out acute cholecystitis HIDA scan negative for cholecystitis GI consult for appreciated Marijuana abuse: Lipase normal Gastroenteritis History of gastritis History of colonoscopy February [address] Tiny Pleitez; pt did not follow up History of pyloric stenosis Acute dehydration: IV fluids Pain Management: [place] did not work per patient, changed to morphine, now patient says morphine is not working, we will change to Dilaudid 2 mg IV q.4 hours p.r.n. Patient Feels slightly better today Plan discussed with: Patient Date of Service: Jun 14, 2024 Billing Provider: OLGA DOUGLAS MD Common Visit Codes: [id number] INP/OBS CARE(HIGH) OLGA DOUGLAS MD Jun 14, 2024 10:53
[2024-06-14 13:00] VITALS: BP 109/62; PULSE 86; RESP 20; TEMP 98.8; O2SAT 95
[2024-06-14 16:22] VITALS: BP 114/77; PULSE 65; RESP 18; TEMP 98; O2SAT 97
[2024-06-14 21:00] VITALS: BP 118/76; PULSE 66; RESP 18; TEMP 98.3; O2SAT 96
--- NOTE | 2024-06-14 22:45 | DVHPN2 ---
Progress Note - Dictate Date Seen: Jun 14, 2024 Medical Necessity Reason Pt with a Central, PICC or Fol: No Subjective Patient is feeling better today Less abdominal pain Tolerating a full liquid diet and agreed to advance to soft diet 1 bowel movement reported No GI bleeding reported vital signs Vital Sign Date Time Temp Pulse Resp B/P (MAP) Pulse Ox O2 Delivery O2 Flow Rate FiO2 06/14/24 21:21 66 18 118/76 06/14/24 21:00 98.3 96 98.3 06/14/24 20:00 Room Air* 0 21 Total Intake and Output 06/13/24 06/13/24 06/14/24 15:00 23:00 07:00 Intake Total 100 ml 1100 ml 675 ml Balance 100 ml 1100 ml 675 ml medications Current Medications Medications Dose Ordered Sig/Jack Route Start Time Stop Time Status Last Admin Dose Admin Piperacillin Sod/ Tazobactam Sod 100 ml @ 25 mls/hr Q8HR IV 06/08/24 16:00 06/14/24 21:19 25 MLS/HR Ondansetron HCl 4 mg Q4HP PRN IV 06/08/24 12:00 06/14/24 13:05 4 MG Acetaminophen 650 mg Q6HP PRN PO 06/08/24 12:00 Pantoprazole Sodium 40 mg DAILY IV 06/09/24 10:00 06/14/24 10:02 40 MG Methylprednisolone Sodium Succinate 60 mg Q8HR IV 06/09/24 22:00 06/14/24 21:19 60 MG Sodium Chloride 1,000 ml @ 150 mls/hr Q6H40M IV 06/09/24 19:15 06/14/24 18:46 150 MLS/HR Mesalamine 800 mg TID PO 06/13/24 06:00 06/14/24 21:20 800 MG Hydromorphone HCl 2 mg Q4HPRN PRN IV 06/13/24 10:45 06/14/24 21:21 2 MG Metronidazole 100 ml @ 100 mls/hr Q8HR IV 06/13/24 22:00 06/14/24 21:19 100 MLS/HR objective Awake and alert Pupils equal and react to light, extraocular movements intact Lungs clear, CVS S1-S2 regular rate rhythm Mild abd tenderness soft positive bowel sounds Extremities without clubbing cyanosis or edema laboratory and microbiology Laboratory Tests 06/09/24 04:47 Test 06/09/24 04:47 Range/Units Serum Glucose 114 H 74-106 mg/dL Problems(with codes): (1) Crohn's ileitis (2) N&V (nausea and vomiting) (3) Abdominal pain (4) Mesenteric adenitis Prognosis Plan Advance to soft mechanical diet Taper down the IV steroids Discharge medication should include mesalamine 800 mg p.o. twice a day He will get a Medrol Dosepak; Bentyl as needed for abdominal pain He will follow up in my office in 2-4 weeks for ongoing GI management and further workup and treatment for possible Crohn's disease Dietary Evaluation Review Recommendations by RD: Protein Supplementation Comments: 1) Initiate Ensure Clear bid d/t decreased appetite. Encourage optimal PO intake. 2) Advance to low-fat diet when medically feasible, pending [employer] approval 3) Follow-up with gastroenterology 4) Continue to monitor I&O, labs, and skin integrity Expected Outcomes/Goals: 1) labs to improve 2) GI symptoms to resolve 3) diet to advance 4) f/u in 2-3 days Plan discussed with: Patient, Spouse REZA JAIMES MD Jun 14, 2024 22:45
[2024-06-15 01:00] VITALS: BP 128/81; PULSE 59; RESP 18; TEMP 97.3; O2SAT 97
[2024-06-15 05:00] VITALS: BP 125/86; PULSE 72; RESP 19; TEMP 98; O2SAT 97
[2024-06-15 09:00] VITALS: BP 112/69; PULSE 54; RESP 18; TEMP 97.9; O2SAT 95
[2024-06-15] MEDS ORDERED: DICY10CA PO (09:34)
[2024-06-15] MEDS ORDERED: MESA1.2T PO (09:34)
[2024-06-15] MEDS ORDERED: METH4PAK PO (09:34)
--- NOTE | 2024-06-15 09:52 | DVHDS2 ---
Discharge Summary Date of Admission Jun 08, 2024 at 11:58 Date of Discharge: Jun 15, 2024 Admitting Diagnosis Acute abdominal pain Wounds: none Labs/Diagnostic Data: Laboratory Results Test 06/14/24 05:56 06/09/24 04:47 06/08/24 15:13 06/08/24 13:37 White Blood Count 13.2 10^3/uL (4.4-10.8) Red Blood Count 5.86 10^6/uL (4.5-5.90) Hemoglobin 16.7 g/dL (13.5-17.5) Hematocrit 52.1 % (41.0-53.0) Mean Corpuscular Volume 89.0 fL (80.0-100.0) Mean Corpuscular Hemoglobin 28.6 pg (28.0-32.0) Mean Corpuscular Hemoglobin Concent 32.1 g/dL (32.0-36.0) Red Cell Distribution Width 15.2 % (11.8-14.3) Platelet Count 270 10^3/uL (140-450) Mean Platelet Volume 9.6 fL (6.9-10.8) Neutrophils (%) (Auto) 75.0 % (37.0-80.0) Lymphocytes (%) (Auto) 15.7 % (10.0-50.0) Monocytes (%) (Auto) 8.3 % (0.0-12.0) Eosinophils (%) (Auto) 0.4 % (0.0-7.0) Basophils (%) (Auto) 0.6 % (0.0-2.0) Neutrophils # (Auto) 9.9 10 ^3/uL (1.6-8.6) Lymphocytes # (Auto) 2.1 10 ^3/uL (0.4-5.4) Monocytes # (Auto) 1.1 10 ^3/uL (0-1.3) Eosinophils # (Auto) 0.1 10 ^3/uL (0-0.8) Basophils # (Auto) 0.1 10 ^3/uL (0-0.2) Nucleated Red Blood Cells 0.1 % Sodium Level 142 mmol/L (136-145) Potassium Level 4.4 mmol/L (3.5-5.1) Chloride Level 110 mmol/L (98-107) Carbon Dioxide Level 21 mmol/L (20-31) Anion Gap 11 (5-15) Blood Urea Nitrogen 21 mg/dL (9-23) Creatinine 1.38 mg/dL (0.700-1.30) Glomerular Filtration Rate Calc 71 mL/min (>90) BUN/Creatinine Ratio 15.2 (10.0-20.0) Serum Glucose 114 mg/dL (74-106) Calcium Level 10.4 mg/dL (8.7-10.4) Total Bilirubin 0.8 mg/dL (0.2-1.0) Aspartate Amino Transferase (AST) 26 U/L (13-40) Alanine Aminotransferase (ALT) 27 U/L (7-40) Alkaline Phosphatase 94 U/L (46-116) Total Protein 8.5 g/dL (5.7-8.2) Albumin 5.1 g/dL (3.2-4.8) Urine Color Yellow (Yellow) Urine Clarity Ex.turbid (Clear) Urine pH 5.5 (5.0-9.0) Urine Specific [place] 1.036 (1.001-1.035) Urine Protein 1+ (Negative) Urine Ketones 2+ (Negative) Urine Blood Negative /uL (Negative) Urine Nitrite Negative (Negative) Urine Bilirubin Negative (Negative) Urine Urobilinogen Normal mg/dL (Negative) Urine Leukocyte Esterase 1+ /uL (Negative) Urine RBC 6 /hpf (0 - 3) Urine Microscopic WBC 24 /HPF (0-3) Urine Squamous Epithelial Cells Few /hpf (<5) Urine Calcium Oxalate Crystals Few (None Seen) Urine Amorphous Crystals Few /hpf (None Seen) Urine Bacteria None seen /hpf (None Seen) Urine Mucus Few (None Seen) Urine Glucose Trace mg/dL (Normal) Urine Opiates Screen Pos (NEGATIVE) Urine Fentanyl Screen Pos (NEGATIVE) Urine Barbiturates Screen Neg (NEGATIVE) Urine Phencyclidine Screen Neg (NEGATIVE) Urine Amphetamines Screen Neg (NEGATIVE) Urine Benzodiazepines Screen Neg (NEGATIVE) Urine Cocaine Screen Neg (NEGATIVE) Urine Cannabinoids Screen Pos (NEGATIVE) Erythrocyte Sedimentation Rate 13 mm/hr (0-20) Lactic Acid Level 1.9 mmol/L (0.4-2.0) Test 06/08/24 09:54 Lipase 32 U/L (12-53) Other Laboratory Tests 06/09/24 04:47 Brief Hx & Hospital Course: 58-year-old male admitted for right lower quadrant abdominal pain possible Crohn's disease flare-up treated with the mesalamine Solu-Medrol sepsis with a white elevated white count treated with the Zosyn patient also had gallstones acute cholecystitis was ruled out by negative HIDA scan. GI consult by Dr. Pleitez patient had a colonoscopy February [address] Tiny Pleitez and patient did not follow up patient also has a history of pyloric stenosis. Patient cleared for discharge by GI at the time of discharge is afebrile mild abdominal pain and willing to go home. Prescription for mesalamine Medrol Dosepak and Bentyl transmitted to the pharmacy Advised to follow up with GI Dr. Tiny Pleitez in two weeks. Consults/Reason for consult GI Dr Tiny Pleitez Operations or Procedures CT abdomen pelvis without contrast Condition at Discharge: Fair Final Diagnosis/Problems List Acute abdominal pain Ileatis: possible Crohn's disease Solu-Medrol, mesalamine Sepsis with elevated white count continue Zosyn Gallstones rule out acute cholecystitis HIDA scan negative for cholecystitis GI consult for appreciated Marijuana abuse: Lipase normal Gastroenteritis History of gastritis History of colonoscopy February [address] Tiny Pleitez; pt did not follow up History of pyloric stenosis Discharge Disposition: Home Discharge Instruct/Medications Diet: Regular Activity: Light activity Follow Up/Referral: Follow up with GI Dr. Tiny Pleitez in two weeks Medications: Mesalamine Bentyl Medrol Dosepak Transmitted to pharmacy 39 (Time taken for discharge summary 39 minutes) Discharge Statement: "Patient was advised to return to the ER or call 911 if any headaches, dizziness, shortness of breath, chest pain, abdominal pain, bleeding, fevers, or worsening of medical condition. Patient was counseled about treatment plan, medications, possible side effects, patientverbalized understanding. All questions were answered to the best of my ability. This discharge took greater then 30 minutes in planning, reviewing documentation, counseling the patient, and discussing with other team members." ASSESSMENT ASSESSMENT Hospital Course Improved Assessment Acute abdominal pain Ileatis: possible Crohn's disease Solu-Medrol, mesalamine Sepsis with elevated white count continue Zosyn Gallstones rule out acute cholecystitis HIDA scan negative for cholecystitis GI consult for appreciated Marijuana abuse: Lipase normal Gastroenteritis History of gastritis History of colonoscopy February [address] Tiny Pleitez; pt did not follow up History of pyloric stenosis Date of Service: Jun 15, 2024 Billing Provider: OLGA DOUGLAS MD Common Visit Codes: 59228-XGO/OBS DISCH DAY >30min OLGA DOUGLAS MD Jun 15, 2024 09:52
[2024-06-15 10:05] VITALS: TEMP 36.6
== END 2024-06-15 10:26 | disposition home or self-care (01) | DRG 720 ==
LOC: ER 09:08 → OVERFLOW 11:58 → WEST WING 15:44
PROVIDERS: ADMIT Family Medicine; ATTEND Family Medicine
DX: A41.9 Sepsis, unspecified organism (principal); N17.0 Acute kidney failure with tubular necrosis; K80.50 Calculus of bile duct without cholangitis or cholecystitis without obstruction; A09 Infectious gastroenteritis and colitis, unspecified; D18.09 Hemangioma of other sites; E86.0 Dehydration; I88.0 Nonspecific mesenteric lymphadenitis; K50.90 Crohn's disease, unspecified, without complications; K59.00 Constipation, unspecified; N18.9 Chronic kidney disease, unspecified; F12.10 Cannabis abuse, uncomplicated; Z79.899 Other long term (current) drug therapy
CPT/HCPCS: 36415; 74176; 76705; 78226; 80053; 80307; 81001; 83605; 83690; 85025; 85652; 86256; 86671; 96365; 96375; 99291; G0378; J2405; J2470; J2543; J3490

== ENCOUNTER 2024-06-27 14:08 | Inpatient (IN) | payer MEDICAID ==
[~2024-06-27] VITALS: Ht 182.9 cm; Wt 84.3 kg
[~2024-06-27 14:08] MED LIST changes: +DICY10CA PO; +MESA1.2T PO; +METH4PAK PO; +PANT40T PO
--- NOTE | 2024-06-27 14:21 | ED.PDOC ---
GI ASSESSMENT HPI Comments 28 year old male presents to the ED with chief complaint of abdominal pain. Patient reports that he has been experiencing 7.5/10 epigastric abdominal pain with associated nausea, vomiting, and chills since yesterday morning. Patient relays that he was recently admitted to the hospital on 06/08/24 for similar complaints and was diagnosed with Crohn's Disease, gallstones, and gastritis. Patient denies any diarrhea, fever, chest pain, SOB, hematemesis, or melena. Time Seen by MD: 14:18 Reviewed Notes: Nurses Notes, Medications, Allergies Allergies: Coded Allergies: NO KNOWN ALLERGIES (Unverified , 09/25/22) Home Meds Active Scripts Dicyclomine Hcl (BENTYL CAPSULE) 10 Mg Cp, 1 CAP PO TID PRN, #30 CAP 11 Refills Prov:OLGA DOUGLAS MD 06/15/24 Methylprednisolone (Medrol Dosepak) 4 Mg Carlo, 4 MG PO UD, #21 TAB UAD Prov:OLGA DOUGLAS MD 06/15/24 Mesalamine (Lialda) 1.2 Gm Tab, 1 TAB PO BID, #60 TAB 11 Refills Prov:OLGA DOUGLAS MD 06/15/24 Reported Medications Pantoprazole Sodium Sesquihydr (Pantoprazole Sodium) 40 Mg Tab, 1 TAB PO DAILY for ACID REFLUX 06/08/24 Hydrocodone-Acetaminophen (Hydrocodone/Acetaminophen 10-325 mg) 1 Tab Tab, 1 TAB PO PRN for PAIN, TAB 03/12/24 Information Source: Patient Mode of Arrival: Ambulatory Timing: Days Duration: Since onset Prehospital treatment: None Quality: Sharp Vomitus: Watery Stool: Normal Severity: Moderate Recent: None Recent Hx of: None Pain Location: Epigastric Modifying Factors: Nothing Associated sign and symptoms: Nausea, Vomiting, Abdominal Pain Past Medical History PAST MEDICAL HISTORY: Gallstones Past Medical History (Other): Crohn's Disease, Gastritis, hx of pyloric stenosis as Surgical History: Denies all surgeries Surgical History (Other): Pyloric stenosis repair Family History Family History: Reviewed,noncontributory to illness, No family hx of Cancer, No family hx of DM, No family hx of Heart merry, No family hx of HTN, No family hx ofKidney merry, No family hx of Liver merry, No family hx of Lung merry, No family hx of Stroke Social History Smoker: Non-Smoker Alcohol: Denies ETOH Use Drugs: Marijuana Lives In: Home Constitutional: reports: chills; denies: diaphoresis, fatigue, fever, malaise, sweats, weakness, others EENTM: denies: blurred vision, double vision, ear bleeding, ear discharge, ear drainage, ear pain, ear ringing, eye pain, eye redness, hearing loss, mouth pain, mouth swelling, nasal discharge, nose bleeding, nose congestion, nose pain, photophobia, tearing, throat pain, throat swelling, voice changes, others Respiratory: denies: cough, hemoptysis, orthopnea, SOB at rest, shortness of breath, SOB with excertion, stridor, wheezing, others Cardiovascular: denies: chest pain, dizzy spells, diaphoresis, Dyspnea on exertion, edema, irregular heart beat, left arm pain, lightheadedness, palpitations, PND, syncope, others Gastrointestinal: reports: abdominal pain, nausea, vomiting; denies: abdomen distended, blood streaked bowels, constipated, diarrhea, dysphagia, difficulty swallowing, hematemesis, melena, poor appetite, poor fluid intake, rectal bleeding, rectal pain, others Genitourinary: denies: burning, dysuria, flank pain, frequency, hematuria, incontinence, penile discharge, penile sore, pain, testicle pain, testicle swel ling, urgency, others Neurological: denies: dizziness, fainting, headache, left sided numbness, left sided weakness, numbness, paresthesia, pre-existing deficit, right sided numbness, right sided weakness, seizure, speech problems, tingling, tremors, weakness, others Musculoskeletal: denies: back pain, gout, joint pain, joint swelling, muscle pain, muscle stiffness, neck pain, others Integumetry: denies: bruises, change in color, change in hair/nails, dryness, laceration, lesions, lumps, rash, wounds, others Allergic/Immunocompromised: denies: Difficulty Healing, Frequent Infections, Hives, Itching, others Hematologic/Lymphatic: denies: anemia, blood clots, easy bleeding, easy bruising, swollen glands, others Endocrine: denies: excessive hunger, excessive sweating, excessive thirst, excessive urination, flushing, intolerance to cold, intolerance to heat, unexplained weight gain, unexplained weight loss, others Psychiatric: denies: anxiety, bipolar disorder, depression, hopeless, panic disorder, schizophrenia, sleepless, suicidal, others All Other Systems: Reviewed and Negative Physical Exam General Appearance: Moderate Distress HEENT: Normal ENT Inspection, Pharynx Normal, TMs Normal Neck: Full Range of Motion, Non-Tender, Normal, Normal Inspection Respiratory: Chest Non-Tender, Lungs Clear, No Accessory Muscle Use, No Respiratory Distress, Normal Breath Sounds Cardiovascular: No Edema, No JVD, No Murmur, No Gallop, Normal Peripheral Pulses, Regular Rate/Rhythm Breast Exam: Deferred Gastrointestinal: Epigastric, No Organomegaly, No Pulsatile Mass, Normal Bowel Sounds, Soft, Tenderness Genitalia: Deferred Pelvic: Deferred Rectal: Deferred Extremities: No calf tenderness, Normal capillary refill, Normal inspection, Normal range of motion, Non-tender, No pedal edema Musculoskeletal : Apperance: Normal Neurologic: Alert, mess cook II-XII nml as Tested, No Motor Deficits, Normal Affect, Normal Mood, No Sensory Deficits Cerebellar Function: Normal Reflexes: Normal Skin: Dry, Normal Color, Warm Lymphatic: No Adenopathy Was a procedure done? Was a procedure done?: No GI differential Dx Differential Diagnosis: Cholangitis, Cholecystitis, Gastritis/PUD, Syed roenteritis, Pancreatitis, UTI X-Ray, Labs, Meds, VS Vital Signs Date Time Temp Pulse Resp B/P (MAP) Pulse Ox O2 Delivery O2 Flow Rate FiO2 06/27/24 16:04 118 18 122/91 06/27/24 15:34 114 20 156/81 06/27/24 15:32 114 18 158/81 (106) 95 06/27/24 14:20 98.0 152 18 125/72 (89) 96 98.0 Lab Test 06/27/24 14:30 Range/Units White Blood Count 11.2 H 4.4-10.8 10^3/uL Red Blood Count 5.89 4.5-5.90 10^6/uL Hemoglobin 16.8 13.5-17.5 g/dL Hematocrit 50.2 41.0-53.0 % Mean Corpuscular Volume 85.1 80.0-100.0 fL Mean Corpuscular Hemoglobin 28.4 28.0-32.0 pg Mean Corpuscular Hemoglobin Concent 33.4 32.0-36.0 g/dL Red Cell Distribution Width 15.1 H 11.8-14.3 % Platelet Count 271 140-450 10^3/uL Mean Platelet Volume 8.3 6.9-10.8 fL Neutrophils (%) (Auto) 80.8 H 37.0-80.0 % Lymphocytes (%) (Auto) 13.6 10.0-50.0 % Monocytes (%) (Auto) 4.8 0.0-12.0 % Eosinophils (%) (Auto) 0.3 0.0-7.0 % Basophils (%) (Auto) 0.5 0.0-2.0 % Neutrophils # (Auto) 9.0 H 1.6-8.6 10 ^3/uL Lymphocytes # (Auto) 1.5 0.4-5.4 10 ^3/uL Monocytes # (Auto) 0.5 0-1.3 10 ^3/uL Eosinophils # (Auto) 0 0-0.8 10 ^3/uL Basophils # (Auto) 0.1 0-0.2 10 ^3/uL Nucleated Red Blood Cells 0.1 % Sodium Level 140 136-145 mmol/L Potassium Level 4.2 3.5-5.1 mmol/L Chloride Level 107 98-107 mmol/L Carbon Dioxide Level 23 20-31 mmol/L Anion Gap 10 5-15 Blood Urea Nitrogen 17 9-23 mg/dL Creatinine 1.04 0.700-1.30 mg/dL Glomerular Filtration Rate Calc 100 >90 mL/min BUN/Creatinine Ratio 16.3 10.0-20.0 Serum Glucose 112 H 74-106 mg/dL Calcium Level 10.2 8.7-10.4 mg/dL Total Bilirubin 0.8 0.2-1.0 mg/dL Aspartate Amino Transferase (AST) 12 L 13-40 U/L Alanine Aminotransferase (ALT) 32 7-40 U/L Alkaline Phosphatase 91 46-116 U/L Total Protein 7.8 5.7-8.2 g/dL Albumin 5.1 H 3.2-4.8 g/dL Lipase 42 12-53 U/L Current Medications Medications (Trade) Dose Ordered Sig/Jack Route Start Time Stop Time Status Last Admin Morphine Sulfate 4 mg ONCE ONCE IV 06/27/24 14:30 06/27/24 14:31 DC 06/27/24 15:34 Sodium Chloride 500 ml @ 500 mls/hr Q1H ONCE IVB 06/27/24 14:30 06/27/24 15:29 DC 06/27/24 15:22 Pantoprazole Sodium (Protonix) 40 mg ONCE ONCE IV 06/27/24 14:30 06/27/24 14:31 DC 06/27/24 15:33 Prochlorperazine Edisylate (Compazine Inj) 10 mg ONCE ONCE IV 06/27/24 14:30 06/27/24 14:31 DC 06/27/24 15:33 The patient had an IV Hep-Lock established The patient was given morphine 4 mg IV push for the pain The patient was given a 1 L bolus of normal saline The patient was given Protonix 40 mg IV push The patient was also given Compazine 10 mg IV push for the vomiting The patient states that he has some mild relief but the pain is persistent The patient's CBC shows an elevated white blood cell count of 11.2 The rest of the CBC is within normal limits The chemistry panel is within normal limits The patient was being admitted with a diagnosis of most likely cholelithiasis and Crohn's disease On June 08 the patient did have a positive ultrasound for gallstones The patient was admitted Images Reviewed?: Images reviewed and evaluated by me Time of 1ST Reevaluation: 17:01 Reevaluation 1ST: Unchanged Patient Education/Counseling: Diagnosis, Treatment Family Education/Counseling: No Family Present Additional Information -Reviewed patient's previous visit(s): 06/08/24 for intractable abdominal pain - The following tests were ordered, and results were reviewed by me: CBC, CMP, UA, Lipase, CT Abd/Pel - Additional information was gathered from interviewing the following independent Historian: None - I reviewed and agreed with the following test results read by other provider: CT Abd/Pel - I discussed treatments and results with medical personnel and: patient Comprehensive systems review obtained and negative except for what is stated in the HPI. Departure 1 Departure Time of Disposition: 17:02 Impression: Primary Impression: Intractable abdominal pain Additional Impression: Cholelithiasis Qualified Codes: K80.20 - Calculus of gallbladder without cholecystitis without obstruction Disposition: ADMITTED INPATIENT Admit to: Med Surg Condition: Fair Critical Care Note Critical Care Time?: No Stability Stability form required: Yes Unstable for transfer: ED Physician Assesment (Clinical assesment) Heart Score Heart Score: Heart Score Response (Comments) Value History N/A 0 EKG N/A 0 Age N/A 0 Risk Factors N/A 0 Troponin N/A 0 Total 0 I personally scribed for GEOVANY FERNANDO MD ([email or web address]) on 06/27/24 at 14:21. Electronically submitted by Sarkis Barber ([email or web address]). GEOVANY FERNANDO MD Jun 27, 2024 14:21
[2024-06-27 14:40] LABS: Basophils # (auto) 0.1 10 ^3/uL (0-0.2); Basophils % (auto) 0.5 % (0.0-2.0); Eosinophils # (auto) 0 10 ^3/uL (0-0.8); Eosinophils % (auto) 0.3 % (0.0-7.0); Hematocrit 50.2 % (41.0-53.0); Hemoglobin 16.8 g/dL (13.5-17.5); Lymphocytes # (auto) 1.5 10 ^3/uL (0.4-5.4); Lymphocytes % (auto) 13.6 % (10.0-50.0); Mean Corpuscular Hemoglobin 28.4 pg (28.0-32.0); Mean Corpuscular Hgb Conc. 33.4 g/dL (32.0-36.0); Mean Corpuscular Volume 85.1 fL (80.0-100.0); Monocytes # (auto) 0.5 10 ^3/uL (0-1.3); Monocytes % (auto) 4.8 % (0.0-12.0); Neutrophils % (auto) 80.8 % (37.0-80.0); Nucleated Red Blood Cells % 0.1 %; Platelet Count (auto) 271 10^3/uL (140-450); Red Blood Cells 5.89 10^6/uL (4.5-5.90); Red Cell Distribution Width 15.1 % (11.8-14.3); White Blood Cell 11.2 10^3/uL (4.4-10.8)
[2024-06-27 14:56] LABS: Alanine Aminotransferase 32 U/L (7-40); Alkaline Phosphatase 91 U/L (46-116); Anion Gap 10 (5-15); BUN/Creatinine Ratio 16.3 (10.0-20.0); Blood Urea Nitrogen 17 mg/dL (9-23); Calcium 10.2 mg/dL (8.7-10.4); Carbon Dioxide 23 mmol/L (20-31); Chloride 107 mmol/L (98-107); Lipase 42 U/L (12-53); Potassium 4.2 mmol/L (3.5-5.1); Sodium 140 mmol/L (136-145); Total Protein 7.8 g/dL (5.7-8.2)
[2024-06-27 14:57] LABS: Bilirubin, Total 0.8 mg/dL (0.2-1.0)
[2024-06-27 14:58] LABS: Albumin 5.1 g/dL (3.2-4.8); Aspartate Aminotransferase 12 U/L (13-40); Glucose 112 mg/dL (74-106)
[2024-06-27] MEDS: SODIUM CHLORIDE 0.9% 500 ML IVB ONE (15:22)
[2024-06-27] MEDS: PROCHLORPERAZINE EDISYLATE 5 MG/ML 2ML VIAL IV ONE (15:33)
[2024-06-27] MEDS: PANTOPRAZOLE 40 MG/10 ML VIAL INJ IV ONE (15:33)
[2024-06-27] MEDS: MORPHINE SULFATE 4 MG/ML SYR/VIAL IV ONE (15:34)
[2024-06-27] MEDS ORDERED: ACETAMINOPHEN 325 MG TAB PO PRN (18:45)
[2024-06-27] MEDS ORDERED: MORPHINE SULFATE INJ 2 MG/ml SYRG IV PRN (18:45)
[2024-06-27] MEDS ORDERED: NITROGLYCERIN 0.4 MG SL TAB SL PRN (18:45)
--- NOTE | 2024-06-27 19:53 | DVHHPRES ---
History of Present Illness Resident Creating Document: RUBÉN DELAROSA RESIDENT History of Present Illness Patient is 28 years old male with past medical history of mild Crohn's disease, gallstone, inflammation of the bowel came with a complaint of intractable abdominal pain. As per patient he has been having intractable upper abdominal pain, sudden onset, 9/10, cramping in nature, relieved with leaning forward, aggravated with food. Patient was endorsed nausea and vomiting almost 10-15 times, mostly yellowish colored fluid, no blood. Patient denied any fever or dysuria, acute joint pain or swelling or sick contact. Patient uses marijuana which he used as per patient 3 days before. Patient was recently discharged from the [facility] on 06/15/24. Initial lab workup revealed for leukocytosis with WBC 11.2. Lipase within normal limit. On 06/08/2024- Infectious or inflammatory colitis. Mesenteric and right lower quadrant lymphadenopathy can be seen with mesenteric adenitis. prior exam from 2022. Likely hemangioma in the T12 vertebral body. This can be Sludge in the gallbladder. On 06/08/2024-Cholelithiasis without sonographic evidence of acute cholecystitis. HIDA scan on 06/11/2024 was negative for acute cholecystitis PMH-Crohn's disease, gallstone, inflammation of the bowel PSH- repair of the pyloric stenosis when he was a child Allergy- NKDA Past Medical History Crohn's disease, gallstone, inflammation of the bowel Past Surgical History Repair of pyloric stenosis during child Past Social History Lives with girlfriend, substance abuse marijuana Review of Systems Review of Systems Personal History/ Social History- substance abuse marijuana, lives with girlfriend Patient was seen today at the bedside. Patient Cardiovascular- deny acute chest pain or shortness of breath or cough or palpitation Respiratory denies cough or short of breath or wheezing Musculoskeletal-denies acute joint swelling or tenderness or redness Neurological- denies acute dysarthria, dysphagia, change in vision Psychiatry- denies depression or SI or HI Skin- denies acute rash or purpura Allergies: Coded Allergies: NO KNOWN ALLERGIES (Unverified , 09/25/22) Medications Current Medications Medications Dose Ordered Sig/Jack Route Start Time Stop Time Status Last Admin Dose Admin Sodium Chloride 10 ml Q8HR IV 06/27/24 22:00 UNV Acetaminophen 325 mg Q4HP PRN PO 06/27/24 18:45 UNV Ondansetron HCl 4 mg Q4HP PRN IV 06/27/24 18:45 UNV Nitroglycerin 0.4 mg Q5MINP PRN SL 06/27/24 18:45 UNV Morphine Sulfate 2 mg Q30M PRN IV 06/27/24 18:45 UNV Exam Vital Signs Vital Signs Date Time Temp Pulse Resp B/P (MAP) Pulse Ox O2 Delivery O2 Flow Rate FiO2 06/27/24 16:04 118 18 122/91 06/27/24 15:32 95 06/27/24 14:20 98.0 98.0 Exam General examination- patient awake, alert, oriented HEENT- PEERLA, no acute nasal discharge Cardiovascular- S1-S2 audible, rate and rhythm regular, no murmur Respiratory- CTAB, no wheeze or rhonchi Gastrointestinal-epigastric tenderness+, bowel sound+. Nondistended Musculoskeletal-no acute joint swelling or tenderness or redness Lower extremity- no leg edema Neurological- cranial nerves intact, no acute dysarthria or dysphagia Psychiatry- denies depression or SI or HI Skin- no acute rash or purpura Labs/Xrays Labs Test 06/27/24 14:30 Range/Units White Blood Count 11.2 H 4.4-10.8 10^3/uL Red Blood Count 5.89 4.5-5.90 10^6/uL Hemoglobin 16.8 13.5-17.5 g/dL Hematocrit 50.2 41.0-53.0 % Mean Corpuscular Volume 85.1 80.0-100.0 fL Mean Corpuscular Hemoglobin 28.4 28.0-32.0 pg Mean Corpuscular Hemoglobin Concent 33.4 32.0-36.0 g/dL Red Cell Distribution Width 15.1 H 11.8-14.3 % Platelet Count 271 140-450 10^3/uL Mean Platelet Volume 8.3 6.9-10.8 fL Neutrophils (%) (Auto) 80.8 H 37.0-80.0 % Lymphocytes (%) (Auto) 13.6 10.0-50.0 % Monocytes (%) (Auto) 4.8 0.0-12.0 % Eosinophils (%) (Auto) 0.3 0.0-7.0 % Basophils (%) (Auto) 0.5 0.0-2.0 % Neutrophils # (Auto) 9.0 H 1.6-8.6 10 ^3/uL Lymphocytes # (Auto) 1.5 0.4-5.4 10 ^3/uL Monocytes # (Auto) 0.5 0-1.3 10 ^3/uL Eosinophils # (Auto) 0 0-0.8 10 ^3/uL Basophils # (Auto) 0.1 0-0.2 10 ^3/uL Nucleated Red Blood Cells 0.1 % Sodium Level 140 136-145 mmol/L Potassium Level 4.2 3.5-5.1 mmol/L Chloride Level 107 98-107 mmol/L Carbon Dioxide Level 23 20-31 mmol/L Anion Gap 10 5-15 Blood Urea Nitrogen 17 9-23 mg/dL Creatinine 1.04 0.700-1.30 mg/dL Glomerular Filtration Rate Calc 100 >90 mL/min BUN/Creatinine Ratio 16.3 10.0-20.0 Serum Glucose 112 H 74-106 mg/dL Calcium Level 10.2 8.7-10.4 mg/dL Total Bilirubin 0.8 0.2-1.0 mg/dL Aspartate Amino Transferase (AST) 12 L 13-40 U/L Alanine Aminotransferase (ALT) 32 7-40 U/L Alkaline Phosphatase 91 46-116 U/L Total Protein 7.8 5.7-8.2 g/dL Albumin 5.1 H 3.2-4.8 g/dL Lipase 42 12-53 U/L Assessment/Plan Assessment/Plan Assessment and plan # intractable abdominal pain with the likely due to acute colitis/cannabis abuse nausea and vomiting -patient was severe abdominal pain and intractable nausea and vomiting unable to keep any food down -intractable nausea and vomiting unable to eat or drink # intractable nausea and vomiting likely due to cannabis abuse -patient unable to keep anything down # history of Crohn's disease # history of gallstone # substance abuse marijuana # history of cholelithiasis Plan Pantoprazole 40 mg IV b.i.d. Continue IV fluid as prescribed Continue ceftriaxone 1 g IV daily Continue metronidazole 500 mg IV t.i.d. Continue other pain medication as prescribed Pending GI consult Goals of care, Code status ; discussed with >15 minutes PUD prophylaxis: Pantoprazole DVT prophylaxis: Patient ambulating Plan discussed with Dr. Benjamin , nursing staff, Total time spent on patient evaluation, chart review, assessment and plan, discussion discussion >40 minutes Plan discussed with: Patient, Other (RN) My Orders Orders - RUBÉN DELAROSA Procedure Category Date Status Time Admit ADMIT 06/27/24 Transmitted 18:41 Allergies MEGHAN 06/27/24 In Process 18:41 Code Status CODE 06/27/24 Transmitted 18:41 Sodium Chloride Lock PHA 06/27/24 Logged (Saline Lock Ns) 22:00 Acetaminophen Tablet PHA 06/27/24 Logged (Tylenol Tablet) 18:45 Ondansetron Hcl PHA 06/27/24 Logged (Zofran) 18:45 Complete Blood Count LAB 06/28/24 Verified 04:00 Comprehensive LAB 06/28/24 Verified Metabolic Panel 04:00 Npo (Nothing By DIET 06/28/24 Transmitted Mouth) Diet Breakfast Nitroglycerin PHA 06/27/24 Logged Sublingual (Ntrostat 18:45 Morphine Sulfate PHA 06/27/24 Logged Injection 18:45 Oxygen By Nasal RT 06/27/24 Transmitted Cannula 18:41 Stat Ekg For Chest [facility] 06/27/24 In Process Pain 18:41 Notify Md Of Changes [facility] 06/27/24 In Process From Base 18:41 Mails Supervisor For [facility] 06/27/24 In Process 24 Hours 18:41 Emergency Dysrhythmia [facility] 06/27/24 In Process Protocol 18:41 Rhythm Strips Once [facility] 06/27/24 In Process Every Shift 18:41 Date of Service: Jun 27, 2024 Billing Provider: MARV BENJAMIN MD Common Visit Codes: 90903-[id number] INP/OBS CARE (HIGH) RUBÉN DELAROSA Jun 27, 2024 19:53 MARV BENJAMIN MD Jun 28, 2024 09:50
[2024-06-27] MEDS: cefTRIAXone 1GM/50ML D5W 50 ML IV ONE (20:15)
--- NOTE | 2024-06-27 21:38 | DVH ---
EXAM: US ABDOMEN LIMITED CLINICAL HISTORY: Intractable abdominal pain TECHNIQUE: Grayscale and limited color flow doppler ultrasound of the right upper quadrant is perfor med. COMPARISON: US GALLBLADDER on DOS: 06/08/24 Findings: Liver measures 15.0 cm in length with normal echotexture and contour. No evidence of focal hepatic le sions or intra- or extrahepatic ductal dilatation. Common bile duct measures 0.3 cm in diameter. Norm al hepatopedal flow noted within the portal vein. No perihepatic free fluid is noted. Gallbladder appears within normal limits with gallbladder wall thickness measuring 0.1 cm. There are shadowing calculi. No evidence of biliary sludge or pericholecystic fluid. Negative sonographic [place] y's sign. Pancreas only partially visualized due to overlying bowel gas but is otherwise unremarkable. Right kidney measures 9.6 cm with normal contours, echotexture and cortical thickness. No evidence of hydronephrosis, calculi, cystic or solid renal lesions. Partially visualized inferior vena cava unremarkable. Impression: 1. No evidence of acute right upper quadrant abnormalities. 2. Cholelithiasis without evidence of acute cholecystitis.
[2024-06-27] MEDS: SODIUM CHLOR 0.9% PF (SALINE LOCK) 10ML VIAL/SYR IV SCH (21:44)
[2024-06-27] MEDS: MORPHINE SULFATE INJ 2 MG/ml SYRG IV PRN (21:51)
[2024-06-27] MEDS: metroNIDAZOLE 500MG/100ML 100 ML IV ONE (22:22)
[2024-06-27 23:30] VITALS: BP 127/76; PULSE 89; RESP 18; TEMP 98.2; O2SAT 95
[2024-06-28] VITALS (10 sets, daily range): BP systolic 99–120; BP diastolic 64–83; PULSE 70–105; RESP 18–20; TEMP 36.8; O2SAT 95–99
[2024-06-28] MEDS: D5W/SOD CHLO 0.9% 1,000 ML IV SCH (01:50)
[2024-06-28] MEDS ORDERED: CYCL-837 PO (03:02)
[2024-06-28] MEDS ORDERED: BUDE9TAB OR (03:02)
[2024-06-28] MEDS ORDERED: ZOFR4T PO ×2 (03:02→15:47)
[2024-06-28] MEDS: metroNIDAZOLE 500MG/100ML 100 ML IV SCH (06:15)
[2024-06-28 07:09] LABS: Urine Bacteria None Seen /hpf (None Seen)
[2024-06-28 07:28] LABS: Urine Blood Negative /uL (Negative); Urine Clarity Clear (Clear); Urine Color Yellow (Yellow); Urine Mucus FEW (None Seen); Urine Protein, UAD TRACE (Negative); Urine Squamous Epithelial Cell None Seen /hpf (<5); Urine Urobilinogen Normal (Negative); Urine WBC 9 /HPF (0-3); Urine pH 5.5 (5.0-9.0)
[2024-06-28 07:36] LABS: Basophils # (auto) 0.1 10 ^3/uL (0-0.2); Basophils % (auto) 0.9 % (0.0-2.0); Eosinophils # (auto) 0.1 10 ^3/uL (0-0.8); Eosinophils % (auto) 1.2 % (0.0-7.0); Hematocrit 43.2 % (41.0-53.0); Hemoglobin 14.1 g/dL (13.5-17.5); Lymphocytes # (auto) 2.3 10 ^3/uL (0.4-5.4); Mean Corpuscular Hemoglobin 28.6 pg (28.0-32.0); Mean Corpuscular Hgb Conc. 32.7 g/dL (32.0-36.0); Mean Corpuscular Volume 87.6 fL (80.0-100.0); Monocytes # (auto) 0.7 10 ^3/uL (0-1.3); Monocytes % (auto) 9.1 % (0.0-12.0); Neutrophils # (auto) 4.5 10 ^3/uL (1.6-8.6); Neutrophils % (auto) 58.8 % (37.0-80.0); Nucleated Red Blood Cells % 0.1 %; Platelet Count (auto) 228 10^3/uL (140-450); Red Blood Cells 4.93 10^6/uL (4.5-5.90); Red Cell Distribution Width 14.9 % (11.8-14.3); White Blood Cell 7.7 10^3/uL (4.4-10.8)
[2024-06-28 07:46] LABS: Alanine Aminotransferase 23 U/L (7-40); Alkaline Phosphatase 71 U/L (46-116); Anion Gap 9 (5-15); Carbon Dioxide 27 mmol/L (20-31); Sodium 144 mmol/L (136-145)
[2024-06-28 07:47] LABS: BUN/Creatinine Ratio 14.8 (10.0-20.0); Blood Urea Nitrogen 16 mg/dL (9-23)
[2024-06-28 07:48] LABS: Magnesium 2.2 mg/dL (1.6-2.6); Total Protein 6.6 g/dL (5.7-8.2)
[2024-06-28 07:49] LABS: Albumin 4.1 g/dL (3.2-4.8); Aspartate Aminotransferase 10 U/L (13-40); Bilirubin, Total 0.6 mg/dL (0.2-1.0); Chloride 108 mmol/L (98-107); Glucose 109 mg/dL (74-106)
--- NOTE | 2024-06-28 09:06 | DVHPNRES ---
Progress Note Date Seen: Jun 28, 2024 Resident Creating Document: RUBÉN DELAROSA RESIDENT Medical Necessity Reason Pt with a Central, PICC or Fol: No Subjective Review of Systems Patient is 28 years old male with past medical history of mild Crohn's disease, gallstone, inflammation of the bowel came with a complaint of intractable abdominal pain. As per patient he has been having intractable upper abdominal pain, sudden onset, 9/10, cramping in nature, relieved with leaning forward, aggravated with food. Patient was endorsed nausea and vomiting almost 10-15 times, mostly yellowish colored fluid, no blood. Patient denied any fever or dysuria, acute joint pain or swelling or sick contact. Patient uses marijuana which he used as per patient 3 days before. Patient was recently discharged from the [facility] on 06/15/24. Initial lab workup revealed for leukocytosis with WBC 11.2. Lipase within normal limit. Ultrasound of the abdomen. No evidence of acute right upper quadrant abnormalities.Cholelithiasis without evidence of acute cholecystitis. On 06/08/2024- Infectious or inflammatory colitis. Mesenteric and right lower quadrant lymphadenopathy can be seen with mesenteric adenitis. prior exam from 2022. Likely hemangioma in the T12 vertebral body. This can be Sludge in the gallbladder. On 06/08/2024-Cholelithiasis without sonographic evidence of acute cholecystitis. HIDA scan on 06/11/2024 was negative for acute cholecystitis PMH-Crohn's disease, gallstone, inflammation of the bowel PSH- repair of the pyloric stenosis when he was a child Allergy- NKDA Past Medical History-Crohn's disease, gallstone, inflammation of the bowel Past Surgical History-Repair of pyloric stenosis during child Past Social History-Lives with girlfriend, substance abuse marijuana Patient was seen today for clinical evaluation. Less than chart reviewed. Patient reports feeling better today. No nausea or vomiting this morning. Plan is to put patient on liquid diet. Pending GI consult. Ultrasound of the abdomen. No evidence of acute right upper quadrant abnormalities.Cholelithiasis without evidence of acute cholecystitis. Objective vital signs Vital Sign Date Time Temp Pulse Resp B/P (MAP) Pulse Ox O2 Delivery O2 Flow Rate FiO2 06/28/24 05:00 98.1 70 18 104/64 (77) 96 98.1 06/28/24 00:24 Room Air* 0 21 Total Intake and Output 4/9/25 4/9/25 4/10/25 15:00 23:00 07:00 Intake Total 500 ml Balance 500 ml medications Current Medications Medications Dose Ordered Sig/Jack Route Start Time Stop Time Status Last Admin Dose Admin Sodium Chloride 10 ml Q8HR IV 06/27/24 22:00 06/28/24 06:15 10 ML Acetaminophen 325 mg Q4HP PRN PO 06/27/24 18:45 Ondansetron HCl 4 mg Q4HP PRN IV 06/27/24 18:45 Nitroglycerin 0.4 mg Q5MINP PRN SL 06/27/24 18:45 Morphine Sulfate 2 mg Q30M PRN IV 06/27/24 18:45 Dextrose/Sodium Chloride 1,000 ml @ 125 mls/hr Q8H IV 06/27/24 20:00 06/28/24 01:50 125 MLS/HR Pantoprazole Sodium 40 mg DAILY IV 06/28/24 10:00 Morphine Sulfate 1 mg Q4HP PRN IV 06/27/24 20:00 06/28/24 02:24 1 MG Ceftriaxone Sodium 50 ml @ 100 mls/hr DAILY@09 IV 06/28/24 09:00 Metronidazole 100 ml @ 100 mls/hr Q8HR IV 06/28/24 06:00 06/28/24 06:15 100 MLS/HR Examination General examination- patient awake, alert, oriented HEENT- PEERLA, no acute nasal discharge Cardiovascular- S1-S2 audible, rate and rhythm regular, no murmur Respiratory- CTAB, no wheeze or rhonchi Gastrointestinal-epigastric tenderness+, bowel sound+. Nondistended Musculoskeletal-no acute joint swelling or tenderness or redness Lower extremity- no leg edema Neurological- cranial nerves intact, no acute dysarthria or dysphagia Psychiatry- denies depression or SI or HI Skin- no acute rash or purpura laboratory and microbiology Laboratory Tests 06/28/24 05:58 Test 06/28/24 05:58 Range/Units Serum Glucose 109 H 74-106 mg/dL Problem List/Assessment/Plan Problem List/Assessment/Plan Assessment and plan # intractable abdominal pain with the likely due to acute colitis/cannabis abuse nausea and vomiting -patient was severe abdominal pain and intractable nausea and vomiting unable to keep any food down -intractable nausea and vomiting unable to eat or drink # intractable nausea and vomiting likely due to cannabis abuse -patient unable to keep anything down # history of Crohn's disease # history of gallstone # substance abuse marijuana # history of cholelithiasis Plan Pantoprazole 40 mg IV b.i.d. Continue IV fluid as prescribed Continue ceftriaxone 1 g IV daily Continue metronidazole 500 mg IV t.i.d. Continue other pain medication as prescribed Pending GI consult Goals of care, Code status ; discussed with >15 minutes PUD prophylaxis: Pantoprazole DVT prophylaxis: Patient ambulating Plan discussed with Dr. Marx, nursing staff, Total time spent on patient evaluation, chart review, assessment and plan, discussion discussion >40 minutes Plan discussed with: Patient, Other (RN) Plan discussed with: Patient, Other (RN) My Orders My Orders Orders - RUBÉN DELAROSA RESIDENT Procedure Category Date Status Time Admit ADMIT 06/27/24 Transmitted 18:41 Allergies MEGHAN 06/27/24 In Process 18:41 Code Status CODE 06/27/24 Transmitted 18:41 Sodium Chloride Lock PHA 06/27/24 In Process (Saline Lock Ns) 22:00 Acetaminophen Tablet PHA 06/27/24 In Process (Tylenol Tablet) 18:45 Ondansetron Hcl PHA 06/27/24 In Process (Zofran) 18:45 Npo (Nothing By DIET 06/28/24 Transmitted Mouth) Diet Breakfast Nitroglycerin PHA 06/27/24 In Process Sublingual (Ntrostat 18:45 Morphine Sulfate PHA 06/27/24 In Process Injection 18:45 Oxygen By Nasal RT 06/27/24 Transmitted Cannula 18:41 Stat Ekg For Chest MEGHAN 06/27/24 In Process Pain 18:41 Notify Md Of Changes MEGHAN 06/27/24 In Process From Base 18:41 Carbonating Stone Cleaner For MEGHAN 06/27/24 In Process 24 Hours 18:41 Emergency Dysrhythmia MEGHAN 06/27/24 In Process Protocol 18:41 Rhythm Strips Once MEGHAN 06/27/24 In Process Every Shift 18:41 * Gi Dvh Supervising Film Or Videotape Editor CONS 06/27/24 Transmitted 19:57 Drug Screen LAB 06/27/24 In Process 19:59 D5w/Sod Chlo 0.9% PHA 06/27/24 In Process (D5w Ns 0.9%) 20:00 Pantoprazole PHA 06/28/24 In Process (Protonix) 10:00 Morphine Sulfate PHA 06/27/24 In Process Injection 20:00 Ceftriaxone 1gm/50ml PHA 06/28/24 In Process D5w (Rocephin) 09:00 Abdomen Limited US 06/27/24 Resulted 20:12 Metronidazole PHA 06/28/24 In Process 500mg/100ml (Flagyl 06:00 Mrsa Screen MARITA 06/28/24 In Process 01:31 Communication Order ORDERS 06/28/24 Transmitted 06:16 Chest Xray 1 View XY 06/28/24 Taken 07:09 Covid19 Antigen [place] [facility] 06/28/24 Logged Rapid Influenza A&B LAB 06/28/24 Logged 07:10 RUBÉN DELAROSA RESIDENT Jun 28, 2024 09:06
--- NOTE | 2024-06-28 09:10 | DVH ---
EXAM: XY CHEST XRAY 1 VIEW Indication: pain;PNA Technique: Single frontal view of the chest was obtained Comparison: None FINDINGS: Lines and Tubes: None Lungs: No focal consolidation. Pleura: No effusion. No pneumothorax. Cardiomediastinal contours: Unremarkable Bones: No acute osseous abnormality. IMPRESSION: No acute cardiopulmonary disease.
[2024-06-28] MEDS: cefTRIAXone 1GM/50ML D5W 50 ML IV SCH (10:02)
[2024-06-28] MEDS: PANTOPRAZOLE 40 MG/10 ML VIAL INJ IV SCH (10:02)
[2024-06-28] MEDS: SODIUM CHLORIDE 0.9% 1,000 ML IV ONE (12:07)
--- NOTE | 2024-06-28 13:57 | DVHINCON2 ---
GI Consult Consult Note GI consult note Date of Consultation: 06/28/2024 Chief Complaint: Intractable nausea and vomiting Referring Physician: Isma RESTREPO H&P: 28-year-old male with past medical history of mild Crohn's disease, gallstones, inflammation of the bowel presented to the ER with intractable abdominal pain. Patient complaining of right side abdominal discomfort which is worse with feeling of bloating. Patient says pain is worse with food. And complaining of nausea and vomiting yesterday about 10 times. Denies hematemesis. Last bowel movement two days ago, loose stool, no melena or red blood in stool. Patient completed a course of antibiotics 2-3 weeks ago. Patient also was prescribed prednisone Outpatient Clinic Dr. Pleitez seemed to have made his symptoms worse Patient admits to marijuana use DATE OF OPERATION: 03/16/24 PROCEDURE: Colonoscopy with biopsies. PREOPERATIVE INDICATION: The patient is a 28 -year-old male undergoing colonoscopy for evaluation of abdominal pain and abnormal finding GI tract imaging POSTOPERATIVE DIAGNOSES: 1. [id number] ileitis involving the distal terminal ileum with superficial aphthous like ulcerations hyperemia erythema suspicious for mild Crohn's 2. 1+ internal hemorrhoids with minimal associated proctitis otherwise normal examination up to the cecum and terminal ileum Past Medical History: Crohn's disease, gallstone, inflammation of the bowel Past Surgical History: Repair of pyloric stenosis during child Social History: NO smoking, drinking ETOH . Marijuana use Family History: Noncontributory Review of Systems: Constitutional: no fever, chill, weight loss Heart: no chest pain, no chest pressure Lung: no cough, no dyspnea with exertion Abdomen: see HPI Physical exam: General: NAD, AAOX3 Chest: lung marin clear to auscultation Heart: RRR, no murmur Abdomen: Mild-distended, mild tenderness to palpation, +BS Labs: Labs Test 06/28/24 10:45 06/28/24 06:35 06/28/24 05:58 06/27/24 14:30 Range/Units Lactic Acid Level 0.7 0.4-2.0 mmol/L Urine Color Yellow Yellow Urine Clarity Clear Clear Urine pH 5.5 5.0-9.0 Urine Specific [place] 1.030 1.001-1.035 Urine Protein Trace H Negative Urine Ketones 1+ H Negative Urine Blood Negative Negative /uL Urine Nitrite Negative Negative Urine Bilirubin Negative Negative Urine Urobilinogen Normal Negative mg/dL Urine Leukocyte Esterase Negative Negative /uL Urine RBC 1 0 - 3 /hpf Urine Microscopic WBC 9 H 0-3 /HPF Urine Squamous Epithelial Cells None seen <5 /hpf Urine Bacteria None seen None Seen /hpf Urine Mucus Few None Seen Urine Glucose Normal Normal mg/dL White Blood Count 7.7 # 4.4-10.8 10^3/uL Red Blood Count 4.93 4.5-5.90 10^6/uL Hemoglobin 14.1 # 13.5-17.5 g/dL Hematocrit 43.2 # 41.0-53.0 % Mean Corpuscular Volume 87.6 80.0-100.0 fL Mean Corpuscular Hemoglobin 28.6 28.0-32.0 pg Mean Corpuscular Hemoglobin Concent 32.7 32.0-36.0 g/dL Red Cell Distribution Width 14.9 H 11.8-14.3 % Platelet Count 228 140-450 10^3/uL Mean Platelet Volume 8.6 6.9-10.8 fL Neutrophils (%) (Auto) 58.8 37.0-80.0 % Lymphocytes (%) (Auto) 30.0 10.0-50.0 % Monocytes (%) (Auto) 9.1 0.0-12.0 % Eosinophils (%) (Auto) 1.2 0.0-7.0 % Basophils (%) (Auto) 0.9 0.0-2.0 % Neutrophils # (Auto) 4.5 1.6-8.6 10 ^3/uL Lymphocytes # (Auto) 2.3 0.4-5.4 10 ^3/uL Monocytes # (Auto) 0.7 0-1.3 10 ^3/uL Eosinophils # (Auto) 0.1 0-0.8 10 ^3/uL Basophils # (Auto) 0.1 0-0.2 10 ^3/uL Nucleated Red Blood Cells 0.1 % Sodium Level 144 136-145 mmol/L Potassium Level 4.0 3.5-5.1 mmol/L Chloride Level 108 H 98-107 mmol/L Carbon Dioxide Level 27 20-31 mmol/L Anion Gap 9 5-15 Blood Urea Nitrogen 16 9-23 mg/dL Creatinine 1.08 0.700-1.30 mg/dL Glomerular Filtration Rate Calc 95 >90 mL/min BUN/Creatinine Ratio 14.8 10.0-20.0 Serum Glucose 109 H 74-106 mg/dL Calcium Level 9.0 8.7-10.4 mg/dL Magnesium Level 2.2 1.6-2.6 mg/dL Total Bilirubin 0.6 0.2-1.0 mg/dL Aspartate Amino Transferase (AST) 10 L 13-40 U/L Alanine Aminotransferase (ALT) 23 7-40 U/L Alkaline Phosphatase 71 46-116 U/L Total Protein 6.6 5.7-8.2 g/dL Albumin 4.1 3.2-4.8 g/dL Thyroid Stimulating Hormone (TSH) 0.55 0.55-4.78 uIU/mL Lipase 42 12-53 U/L Imaging: Abdominal ultrasound Impression: 1. No evidence of acute right upper quadrant abnormalities. 2. Cholelithiasis without evidence of acute cholecystitis. Assessment: Abdominal pain improving Nausea vomiting improving History of Crohn's Marijuana use History of cholelithiasis Plan: Discussed with Dr. Maik Lovell and Protonix Recommend Bentyl if symptoms persist Supportive care recommended at this time Outpatient GI follow-up next available appointment Discussed plan with patient and Dr. Jacob resident Thank you for this consult Date of Service: Jun 28, 2024 Billing Provider: ABBY DOUGLAS Common Visit Codes: CONSULT ONLY Consultation Codes: [id number] CONSULT <45MIN ABBY DOUGLAS Jun 28, 2024 13:57
--- NOTE | 2024-06-28 15:36 | DVHINCON2 ---
Date of service: Jun 28, 2024 Family History: Patient reports no known family medical history. Allergies: Coded Allergies: NO KNOWN ALLERGIES (Unverified , 09/25/22) Home Meds Active Scripts Dicyclomine Hcl (BENTYL CAPSULE) 10 Mg Cp, 1 CAP PO TID PRN, #30 CAP 11 Refills Prov:OLGA DOUGLAS MD 06/15/24 Methylprednisolone (Medrol Dosepak) 4 Mg Carlo, 4 MG PO UD, #21 TAB UAD Prov:OLGA DOUGLAS MD 06/15/24 Mesalamine (Lialda) 1.2 Gm Tab, 1 TAB PO BID, #60 TAB 11 Refills Prov:OLGA DOUGLAS MD 06/15/24 Reported Medications Ondansetron Odt 4MG Tab (ZOFRAN PO) 4 Mg Tb, 4 MG PO DAILY, TAB ODT TAB-DISSOLVE IN MOUTH, THEN SWALLOW 06/28/24 Cyclobenzaprine Hcl (Cyclobenzaprine Hcl) 5 Mg Tab, 1 TAB PO QPM, #30 TAB 06/28/24 Budesonide (UCERIS) 9 Mg Tab, 9 MG OR, TAB 06/28/24 Pantoprazole Sodium Sesquihydr (Pantoprazole Sodium) 40 Mg Tab, 1 TAB PO DAILY for ACID REFLUX 06/08/24 Hydrocodone-Acetaminophen (Hydrocodone/Acetaminophen 10-325 mg) 1 Tab Tab, 1 TAB PO PRN for PAIN, TAB 03/12/24 Current Medications Current Medications Medications (Trade) Dose Ordered Sig/Jack Route PRN Reason Start Time Stop Time Status Last Admin Sodium Chloride (Saline Lock Ns) 10 ml Q8HR IV 06/27/24 22:00 06/28/24 14:06 Acetaminophen (Tylenol Tablet) 325 mg Q4HP PRN PO MILD PAIN (1-3 PAIN SCALE) 06/27/24 18:45 Ondansetron HCl (Zofran) 4 mg Q4HP PRN IV NAUSEA / VOMITING 06/27/24 18:45 Nitroglycerin (Ntrostat Sublingual) 0.4 mg Q5MINP PRN SL FOR CHEST PAIN 06/27/24 18:45 Morphine Sulfate 2 mg Q30M PRN IV FOR CHEST PAIN 06/27/24 18:45 Dextrose/Sodium Chloride 1,000 ml @ 125 mls/hr Q8H IV 06/27/24 20:00 06/28/24 12:09 Pantoprazole Sodium (Protonix) 40 mg DAILY IV 06/28/24 10:00 06/28/24 10:02 Morphine Sulfate 1 mg Q4HP PRN IV MODERATE PAIN (4-6 PAIN SCALE) 06/27/24 20:00 06/28/24 10:28 Ceftriaxone Sodium 50 ml @ 100 mls/hr DAILY@09 IV 06/28/24 09:00 06/28/24 10:02 Metronidazole 100 ml @ 100 mls/hr Q8HR IV 06/28/24 06:00 06/28/24 06:15 Vital Signs Vital Signs Date Time Temp Pulse Resp B/P (MAP) Pulse Ox O2 Delivery O2 Flow Rate FiO2 06/28/24 14:03 98.2 84 18 120/73 (89) 97 98.2 06/28/24 08:00 Room Air* 0 21 Labs/Diagnostic Data Labs Test 06/28/24 10:45 06/28/24 06:35 06/28/24 05:58 06/27/24 14:30 Range/Units Lactic Acid Level 0.7 0.4-2.0 mmol/L Urine Color Yellow Yellow Urine Clarity Clear Clear Urine pH 5.5 5.0-9.0 Urine Specific [place] 1.030 1.001-1.035 Urine Protein Trace H Negative Urine Ketones 1+ H Negative Urine Blood Negative Negative /uL Urine Nitrite Negative Negative Urine Bilirubin Negative Negative Urine Urobilinogen Normal Negative mg/dL Urine Leukocyte Esterase Negative Negative /uL Urine RBC 1 0 - 3 /hpf Urine Microscopic WBC 9 H 0-3 /HPF Urine Squamous Epithelial Cells None seen <5 /hpf Urine Bacteria None seen None Seen /hpf Urine Mucus Few None Seen Urine Glucose Normal Normal mg/dL White Blood Count 7.7 # 4.4-10.8 10^3/uL Red Blood Count 4.93 4.5-5.90 10^6/uL Hemoglobin 14.1 # 13.5-17.5 g/dL Hematocrit 43.2 # 41.0-53.0 % Mean Corpuscular Volume 87.6 80.0-100.0 fL Mean Corpuscular Hemoglobin 28.6 28.0-32.0 pg Mean Corpuscular Hemoglobin Concent 32.7 32.0-36.0 g/dL Red Cell Distribution Width 14.9 H 11.8-14.3 % Platelet Count 228 140-450 10^3/uL Mean Platelet Volume 8.6 6.9-10.8 fL Neutrophils (%) (Auto) 58.8 37.0-80.0 % Lymphocytes (%) (Auto) 30.0 10.0-50.0 % Monocytes (%) (Auto) 9.1 0.0-12.0 % Eosinophils (%) (Auto) 1.2 0.0-7.0 % Basophils (%) (Auto) 0.9 0.0-2.0 % Neutrophils # (Auto) 4.5 1.6-8.6 10 ^3/uL Lymphocytes # (Auto) 2.3 0.4-5.4 10 ^3/uL Monocytes # (Auto) 0.7 0-1.3 10 ^3/uL Eosinophils # (Auto) 0.1 0-0.8 10 ^3/uL Basophils # (Auto) 0.1 0-0.2 10 ^3/uL Nucleated Red Blood Cells 0.1 % Sodium Level 144 136-145 mmol/L Potassium Level 4.0 3.5-5.1 mmol/L Chloride Level 108 H 98-107 mmol/L Carbon Dioxide Level 27 20-31 mmol/L Anion Gap 9 5-15 Blood Urea Nitrogen 16 9-23 mg/dL Creatinine 1.08 0.700-1.30 mg/dL Glomerular Filtration Rate Calc 95 >90 mL/min BUN/Creatinine Ratio 14.8 10.0-20.0 Serum Glucose 109 H 74-106 mg/dL Calcium Level 9.0 8.7-10.4 mg/dL Magnesium Level 2.2 1.6-2.6 mg/dL Total Bilirubin 0.6 0.2-1.0 mg/dL Aspartate Amino Transferase (AST) 10 L 13-40 U/L Alanine Aminotransferase (ALT) 23 7-40 U/L Alkaline Phosphatase 71 46-116 U/L Total Protein 6.6 5.7-8.2 g/dL Albumin 4.1 3.2-4.8 g/dL Thyroid Stimulating Hormone (TSH) 0.55 0.55-4.78 uIU/mL Lipase 42 12-53 U/L Assessment [id number] R/O AC CHOLECYSTITIS RESOLVING BILIARY COLIC CROHNS DISEASE MANAGE CONSERVATIVELY CONSIDER EMERGENT SURGERY BASED ON ONGOING EVAL Plan discussed with: Patient SALMA JAIMES MD Jun 28, 2024 15:36
--- NOTE | 2024-06-28 15:45 | DVHDSRES ---
Discharge Summary Date of Admission Resident Creating Document: RUBÉN DELAROSA RESIDENT Jun 27, 2024 at 18:41 Date of Discharge: Jun 28, 2024 Admitting Diagnosis Suspected acute gastroenteritis likely viral, rule out acute pancreatitis/cholecystitis Labs/Diagnostic Data: Laboratory Results Test 06/28/24 10:45 06/28/24 06:35 06/28/24 05:58 06/27/24 14:30 Lactic Acid Level 0.7 mmol/L (0.4-2.0) Urine Color Yellow (Yellow) Urine Clarity Clear (Clear) Urine pH 5.5 (5.0-9.0) Urine Specific [place] 1.030 (1.001-1.035) Urine Protein Trace (Negative) Urine Ketones 1+ (Negative) Urine Blood Negative /uL (Negative) Urine Nitrite Negative (Negative) Urine Bilirubin Negative (Negative) Urine Urobilinogen Normal mg/dL (Negative) Urine Leukocyte Esterase Negative /uL (Negative) Urine RBC 1 /hpf (0 - 3) Urine Microscopic WBC 9 /HPF (0-3) Urine Squamous Epithelial Cells None seen /hpf (<5) Urine Bacteria None seen /hpf (None Seen) Urine Mucus Few (None Seen) Urine Glucose Normal mg/dL (Normal) White Blood Count 7.7 10^3/uL (4.4-10.8) Red Blood Count 4.93 10^6/uL (4.5-5.90) Hemoglobin 14.1 g/dL (13.5-17.5) Hematocrit 43.2 % (41.0-53.0) Mean Corpuscular Volume 87.6 fL (80.0-100.0) Mean Corpuscular Hemoglobin 28.6 pg (28.0-32.0) Mean Corpuscular Hemoglobin Concent 32.7 g/dL (32.0-36.0) Red Cell Distribution Width 14.9 % (11.8-14.3) Platelet Count 228 10^3/uL (140-450) Mean Platelet Volume 8.6 fL (6.9-10.8) Neutrophils (%) (Auto) 58.8 % (37.0-80.0) Lymphocytes (%) (Auto) 30.0 % (10.0-50.0) Monocytes (%) (Auto) 9.1 % (0.0-12.0) Eosinophils (%) (Auto) 1.2 % (0.0-7.0) Basophils (%) (Auto) 0.9 % (0.0-2.0) Neutrophils # (Auto) 4.5 10 ^3/uL (1.6-8.6) Lymphocytes # (Auto) 2.3 10 ^3/uL (0.4-5.4) Monocytes # (Auto) 0.7 10 ^3/uL (0-1.3) Eosinophils # (Auto) 0.1 10 ^3/uL (0-0.8) Basophils # (Auto) 0.1 10 ^3/uL (0-0.2) Nucleated Red Blood Cells 0.1 % Sodium Level 144 mmol/L (136-145) Potassium Level 4.0 mmol/L (3.5-5.1) Chloride Level 108 mmol/L (98-107) Carbon Dioxide Level 27 mmol/L (20-31) Anion Gap 9 (5-15) Blood Urea Nitrogen 16 mg/dL (9-23) Creatinine 1.08 mg/dL (0.700-1.30) Glomerular Filtration Rate Calc 95 mL/min (>90) BUN/Creatinine Ratio 14.8 (10.0-20.0) Serum Glucose 109 mg/dL (74-106) Calcium Level 9.0 mg/dL (8.7-10.4) Magnesium Level 2.2 mg/dL (1.6-2.6) Total Bilirubin 0.6 mg/dL (0.2-1.0) Aspartate Amino Transferase (AST) 10 U/L (13-40) Alanine Aminotransferase (ALT) 23 U/L (7-40) Alkaline Phosphatase 71 U/L (46-116) Total Protein 6.6 g/dL (5.7-8.2) Albumin 4.1 g/dL (3.2-4.8) Thyroid Stimulating Hormone (TSH) 0.55 uIU/mL (0.55-4.78) Lipase 42 U/L (12-53) Other Laboratory Tests 06/28/24 05:58 Brief Hx & Hospital Course: HPI- Patient is 28 years old male with past medical history of mild Crohn's disease, gallstone, inflammation of the bowel came with a complaint of intractable abdominal pain. As per patient he has been having intractable upper abdominal pain, sudden onset, 9/10, cramping in nature, relieved with leaning forward, aggravated with food. Patient was endorsed nausea and vomiting almost 10-15 times, mostly yellowish colored fluid, no blood. Patient denied any fever or dysuria, acute joint pain or swelling or sick contact. Patient uses marijuana which he used as per patient 3 days before. Patient was recently discharged from the [facility] on 06/15/24. Initial lab workup revealed for leukocytosis with WBC 11.2. Lipase within normal limit. Ultrasound of the abdomen. No evidence of acute right upper quadrant abnormalities.Cholelithiasis without evidence of acute cholecystitis. Patient is 28 years old male with past medical history of mild Crohn's disease, gallstone, inflammation of the bowel came with a complaint of intractable abdominal pain. As per patient he has been having intractable upper abdominal pain, sudden onset, 9/10, cramping in nature, relieved with leaning forward, aggravated with food. Patient was endorsed nausea and vomiting almost 10-15 times, mostly yellowish colored fluid, no blood. Patient uses marijuana which he used as per patient 3 days before which med also contributed to patient's nausea and vomiting and abdominal pain. Initial lab workup revealed for leukocytosis with WBC 11.2. Lipase within normal limit. Ultrasound of the abdomen. No evidence of acute right upper quadrant abnormalities.Cholelithiasis without evidence of acute cholecystitis. Patient's symptom improved with the conservative treatment. Patient follows up with Dr. Pleitez for gastrointestinal problem. Patient tolerating liquid diet well. Patient was seen by assistant branch manager and recommended for outpatient follow up. Patient is being discharged home with Carafate and pantoprazole. Patient was advised to follow up with the primary care physician in 1 week and also to follow up with the Gastroenterology in 2-3 weeks. Patient was hemodynamically stable on discharge. # intractable abdominal pain with nausea and vomiting likely due acute viral gastroenteritis likely infectious cause, -ruled out acute cholecystitis or acute pancreatitis # SIRS without end-organ damage # suspected cannabinoids induced intractable nausea and vomiting # history of Crohn's disease # substance abuse marijuana # history of cholelithiasis Discharge plan -pantoprazole 40 mg p.o. daily -Carafate 1 g t.i.d. for 2 weeks -Zofran 4 mg q.6h PRN -resume other home medication as prescribed by assistant branch manager including mesalamine -please continue liquid diet for 5-7 days then gradually semi-solid to solid -please follow up with the primary care physician in 1 week -please follow up with the assistant branch manager Dr. Pleitez in 2-3 weeks for further evaluation and care Operations or Procedures [address] [address] Ph: [phone] DIAGNOSTIC IMAGING Diagnostic Imaging Report : [id number] Signed PATIENT: GISELL OSEGUERA IACCT: [id number] UNIT: [id number] : 1995 LOC: OVERFLOW ROOM / BED: [address] [place] [address] AGE / SEX: 28 / M ADM STATUS: ADM IN SERVICE 11 ORDERING PHYSICIAN: RUBÉN DELAROSA RESIDENT PROCEDURE(s): ABDL - ABDOMEN LIMITED REASON: Intractable abdominal pain ORDER NUMBER(s): [id number], ACCESSION NUMBER(s): [id number] EXAM: US ABDOMEN LIMITED CLINICAL HISTORY: Intractable abdominal pain TECHNIQUE: Grayscale and limited color flow doppler ultrasound of the right upper quadrant is performed. COMPARISON: US GALLBLADDER on DOS: 06/08/24 Findings: Liver measures 15.0 cm in length with normal echotexture and contour. No evidence of focal hepatic lesions or intra- or extrahepatic ductal dilatation. Common bile duct measures 0.3 cm in diameter. Normal hepatopedal flow noted within the portal vein. No perihepatic free fluid is noted. Gallbladder appears within normal limits with gallbladder wall thickness measuring 0.1 cm. There are shadowing calculi. No evidence of biliary sludge or pericholecystic fluid. Negative sonographic Burks's sign. Pancreas only partially visualized due to overlying bowel gas but is otherwise unremarkable. Right kidney measures 9.6 cm with normal contours, echotexture and cortical thickness. No evidence of hydronephrosis, calculi, cystic or solid renal lesions. Partially visualized inferior vena cava unremarkable. Impression: 1. No evidence of acute right upper quadrant abnormalities. 2. Cholelithiasis without evidence of acute cholecystitis. ATED BY: LISA PACHECO DO DICTATED DATE/TIME: 06/27/242135 SIGNED BY: LISA PACHECO DO SIGNED DATE/TIME: 06/27/242135 CC: Condition at Discharge: Stable Final Diagnosis/Problems List # intractable abdominal pain with nausea and vomiting likely due acute viral gastroenteritis likely infectious cause, -ruled out acute cholecystitis or acute pancreatitis # SIRS without end-organ damage # suspected cannabinoids induced intractable nausea and vomiting # history of Crohn's disease # substance abuse marijuana # history of cholelithiasis Discharge Disposition: Home Discharge Instruct/Medications Follow Up/Referral: -please continue liquid diet for 5-7 days then gradually semi-solid to solid -please follow up with the primary care physician in 1 week -please follow up with the assistant branch manager Dr. Pleitez in 2-3 weeks for further evaluation and care Medications: -pantoprazole 40 mg p.o. daily -Carafate 1 g t.i.d. for 2 weeks Zofran 4 mg q.6h PRN -resume other home medication as prescribed by assistant branch manager including mesalamine Discharge Statement: "Patient was advised to return to the ER or call 911 if any headaches, dizziness, shortness of breath, chest pain, abdominal pain, bleeding, fevers, or worsening of medical condition. Patient was counseled about treatment plan, medications, possible side effects, patientverbalized understanding. All questions were answered to the best of my ability. This discharge took greater then 30 minutes in planning, reviewing documentation, counseling the patient, and discussing with other team members." ASSESSMENT ASSESSMENT Assessment Date of Service: Jun 28, 2024 Billing Provider: ALEJO KHAN MD Common Visit Codes: [id number] DISCH DAY >30min RUBÉN DELAROSA RESIDENT Jun 28, 2024 15:45 ALEJO KHAN MD Jul 02, 2024 09:24
[2024-06-28] MEDS ORDERED: SUCR1TAB31 OR (15:47)
[2024-06-28 15:54] LABS: Cocaine Screen, Urine Neg (NEGATIVE)
[2024-06-28 15:55] LABS: Cannabinoid Screen, Urine Pos (NEGATIVE)
[2024-06-28 15:56] LABS: Amphetamine Screen, Urine Neg (NEGATIVE); Barbiturate Scree,Urine Neg (NEGATIVE); Benzodiazephine Screen, Urine Neg (NEGATIVE); Opiate Scree,Urine Pos (NEGATIVE); Phencyclidine Screen, Urine Neg (NEGATIVE)
--- NOTE | 2024-06-28 17:03 | DVHINCON2 ---
DATE OF CONSULTATION: 06/28/2024 HISTORY OF PRESENT ILLNESS: This patient is 28 years old, coming in with abdominal pain, now feeling better, diagnosed with mild Crohn's disease, also has gallstones on his workup, with inflammation of the bowel, presented to the ER with intractable abdominal pain, now is feeling better. No nausea, vomiting. No constipation, diarrhea. No hematemesis, melena. No bleeding per rectum. PAST MEDICAL HISTORY: No diabetes or hypertension. PAST SURGICAL HISTORY: Significant for pyloric stenosis during infancy. PHYSICAL EXAMINATION: VITAL SIGNS: Afebrile, stable signs. HEENT: With no evidence of pallor, cyanosis or jaundice. NECK: Supple, nontender with no thyromegaly or lymphadenopathy. CHEST AND LUNGS: Clear. HEART: Within normal limits. ABDOMEN: Soft. Minimally tender. No rebound. EXTREMITIES: Unremarkable. NEUROLOGICAL: He is intact. CLINICAL IMPRESSION: Resolving ileitis, suspect Crohn's disease, inflammation of the bowel, and he also has gallstones with a possibility of biliary colic resolving, acute cholecystitis resolving. PLAN: The plant will be to keep him under close observation and consider emergent surgery based upon ongoing evaluation. MD ETELVINA Montes De Oca/COLE/GRIFFIN TID: [id number] RECEIPT: [id number] cc: Dr. Val Jacob
[2024-06-28] MEDS: ONDANSETRON HCL 4 MG/2 ML VIAL IV PRN (22:00)
[2024-06-29] VITALS (8 sets, daily range): BP systolic 100–126; BP diastolic 64–90; PULSE 74–184; RESP 17–20; TEMP 97.8–98.8; O2SAT 95–99
[2024-06-29] MEDS ORDERED: LACTATED RINGER'S 1,000 ML IV SCH (01:00)
[2024-06-29 01:55] LABS: Basophils # (auto) 0.1 10 ^3/uL (0-0.2); Basophils % (auto) 0.5 % (0.0-2.0); Eosinophils # (auto) 0 10 ^3/uL (0-0.8); Eosinophils % (auto) 0.3 % (0.0-7.0); Hematocrit 43.4 % (41.0-53.0); Hemoglobin 14.8 g/dL (13.5-17.5); Lymphocytes # (auto) 1.5 10 ^3/uL (0.4-5.4); Lymphocytes % (auto) 14.2 % (10.0-50.0); Mean Corpuscular Hgb Conc. 34.1 g/dL (32.0-36.0); Mean Corpuscular Volume 85.2 fL (80.0-100.0); Monocytes # (auto) 0.7 10 ^3/uL (0-1.3); Monocytes % (auto) 6.3 % (0.0-12.0); Neutrophils # (auto) 8.6 10 ^3/uL (1.6-8.6); Neutrophils % (auto) 78.7 % (37.0-80.0); Platelet Count (auto) 256 10^3/uL (140-450); Red Blood Cells 5.09 10^6/uL (4.5-5.90); Red Cell Distribution Width 14.7 % (11.8-14.3); White Blood Cell 10.9 10^3/uL (4.4-10.8)
[2024-06-29 02:11] LABS: Alanine Aminotransferase 25 U/L (7-40); Albumin 4.6 g/dL (3.2-4.8); Alkaline Phosphatase 81 U/L (46-116); Anion Gap 10 (5-15); BUN/Creatinine Ratio 14.9 (10.0-20.0); Bilirubin, Total 0.7 mg/dL (0.2-1.0); Blood Urea Nitrogen 14 mg/dL (9-23); Calcium 9.4 mg/dL (8.7-10.4); Carbon Dioxide 23 mmol/L (20-31); Glucose 103 mg/dL (74-106); Lipase 34 U/L (12-53); Potassium 3.5 mmol/L (3.5-5.1); Sodium 141 mmol/L (136-145); Total Protein 7.3 g/dL (5.7-8.2)
[2024-06-29 02:19] LABS: Aspartate Aminotransferase 11 U/L (13-40); Chloride 108 mmol/L (98-107)
[2024-06-29] MEDS: DICYCLOMINE HCL 10 MG CAP PO PRN (02:58)
[2024-06-29] MEDS: MESALAMINE 400mg Delayed Release Cap PO ONE (02:58)
[2024-06-29] MEDS: LACTATED RINGER'S 1,000 ML IV ONE (03:10)
[2024-06-29] MEDS: MORPHINE SULFATE INJ 2 MG/ml SYRG IV PRN (03:18)
[2024-06-29] MEDS: MESALAMINE 400mg Delayed Release Cap PO SCH (06:17)
[2024-06-29 06:55] LABS: Basophils # (auto) 0 10 ^3/uL (0-0.2); Basophils % (auto) 0.5 % (0.0-2.0); Eosinophils # (auto) 0 10 ^3/uL (0-0.8); Eosinophils % (auto) 0.1 % (0.0-7.0); Hematocrit 43.3 % (41.0-53.0); Hemoglobin 14.1 g/dL (13.5-17.5); Lymphocytes # (auto) 1.1 10 ^3/uL (0.4-5.4); Lymphocytes % (auto) 13.6 % (10.0-50.0); Mean Corpuscular Hemoglobin 28.6 pg (28.0-32.0); Mean Corpuscular Hgb Conc. 32.5 g/dL (32.0-36.0); Monocytes # (auto) 0.5 10 ^3/uL (0-1.3); Monocytes % (auto) 5.9 % (0.0-12.0); Neutrophils # (auto) 6.2 10 ^3/uL (1.6-8.6); Neutrophils % (auto) 79.9 % (37.0-80.0); Nucleated Red Blood Cells % 0.1 %; Platelet Count (auto) 208 10^3/uL (140-450); Red Blood Cells 4.92 10^6/uL (4.5-5.90); Red Cell Distribution Width 14.9 % (11.8-14.3); White Blood Cell 7.7 10^3/uL (4.4-10.8)
[2024-06-29 07:05] LABS: Anion Gap 12 (5-15); Potassium 3.8 mmol/L (3.5-5.1); Sodium 138 mmol/L (136-145)
[2024-06-29 07:06] LABS: Calcium 9.4 mg/dL (8.7-10.4)
[2024-06-29 07:10] LABS: Chloride 108 mmol/L (98-107)
[2024-06-29 07:11] LABS: BUN/Creatinine Ratio 10.6 (10.0-20.0)
[2024-06-29 07:13] LABS: Blood Urea Nitrogen 9 mg/dL (9-23); Carbon Dioxide 18 mmol/L (20-31); Glucose 119 mg/dL (74-106)
--- NOTE | 2024-06-29 12:28 | DVHPN2 ---
Subjective The patient is seen and examined at bedside. No complaint today Reviewed: Care Plan, H&P, Labs, Medications, Previous Orders, Radiology Changes from previous H/P or p: No Changes Objective Vitals Vital Signs Date Time Temp Pulse Resp B/P (MAP) Pulse Ox O2 Delivery O2 Flow Rate FiO2 06/29/24 09:32 90 20 125/72 06/29/24 08:30 98.3 98 98.3 06/29/24 08:10 Room Air* 0 21 Intake/Output Intake and Output 06/29/24 07:00 Intake Total 850 ml Balance 850 ml Intake Oral 700 ml IV Total 150 ml # Voids 4 General Appearance: Alert, Cooperative, No acute distress HEENT: Atraumatic, PERRLA, EOMI, Mucous membr. moist/pink Neck: Supple Lungs: Clear to auscultation, Normal air movement Cardiovascular: Regular rate, Normal S1, Normal S2, Gallops, Rubs Abdomen: Normal bowel sounds, Soft, No hepatospenomegaly Neuro: Cranial nerves 3-12 NL Psych/Mental Status: Mental status NL Medications Current Medications Medications Dose Ordered Sig/Jack Route Start Time Stop Time Status Last Admin Dose Admin Sodium Chloride 10 ml Q8HR IV 06/27/24 22:00 06/29/24 06:20 10 ML Acetaminophen 325 mg Q4HP PRN PO 06/27/24 18:45 Ondansetron HCl 4 mg Q4HP PRN IV 06/27/24 18:45 06/29/24 09:35 4 MG Dextrose/Sodium Chloride 1,000 ml @ 125 mls/hr Q8H IV 06/27/24 20:00 06/28/24 22:18 125 MLS/HR Pantoprazole Sodium 40 mg DAILY IV 06/28/24 10:00 06/29/24 09:35 40 MG Ceftriaxone Sodium 50 ml @ 100 mls/hr DAILY@09 IV 06/28/24 09:00 06/29/24 09:35 100 MLS/HR Metronidazole 100 ml @ 100 mls/hr Q8HR IV 06/28/24 06:00 06/29/24 06:17 100 MLS/HR Morphine Sulfate 2 mg Q4HP PRN IV 06/29/24 01:00 06/29/24 09:32 2 MG Lactated Ringer's 1,000 ml @ 75 mls/hr Q24H28R IV 06/29/24 01:00 Dicyclomine HCl 20 mg QID PRN PO 06/29/24 01:00 06/29/24 02:58 20 MG Mesalamine 800 mg TID PO 06/29/24 06:00 06/29/24 06:17 800 MG Laboratory Results Laboratory Tests 06/29/24 05:52 Chemistry Test 06/29/24 01:30 06/29/24 05:52 Albumin 4.6 g/dL (3.2-4.8) Calcium Level 9.4 mg/dL (8.7-10.4) 9.4 mg/dL (8.7-10.4) Total Protein 7.3 g/dL (5.7-8.2) Lipid panel Test 06/29/24 01:30 Lipase 34 U/L (12-53) LFT Test 06/29/24 01:30 Alanine Aminotransferase (ALT) 25 U/L (7-40) Alkaline Phosphatase 81 U/L (46-116) Aspartate Amino Transferase (AST) 11 U/L (13-40) L Total Bilirubin 0.7 mg/dL (0.2-1.0) Urinalysis Test 06/28/24 06:35 Urine Color Yellow (Yellow) Urine Clarity Clear (Clear) Urine pH 5.5 (5.0-9.0) Urine Specific [place] 1.030 (1.001-1.035) Urine Protein Trace (Negative) H Urine Ketones 1+ (Negative) H Urine Blood Negative /uL (Negative) Urine Nitrite Negative (Negative) Urine Bilirubin Negative (Negative) Urine Urobilinogen Normal mg/dL (Negative) Urine Leukocyte Esterase Negative /uL (Negative) Urine RBC 1 /hpf (0 - 3) Urine Microscopic WBC 9 /HPF (0-3) H Urine Squamous Epithelial Cells None seen /hpf (<5) Urine Bacteria None seen /hpf (None Seen) Urine Mucus Few (None Seen) Urine Glucose Normal mg/dL (Normal) Microbiology Microbiology Date/Time Source Procedure Growth Status 06/28/24 01:31 Nose MRSA Screen - Final Complete Labs and/or images reviewed: Labs reviewed by me Assessment/Plan Assessment/Plan # intractable abdominal pain with the likely due to acute gastroenteritis /cannabis abuse nausea and vomiting # mesenteric adenitis # Crohn's ileitis -CT abdomen- Redemonstrated are subcentimeter mesenteric lymph nodes in the right lower quadrant abdomen. These can be seen with mesenteric adenitis. Clinical correlation is recommended. There is no acute process in the abdomen and pelvis. - Barium swallow-Initial sizer hand view of the abdomen and pelvis appears demonstrates no acute process. Contrast is identified in the colon after 3 hours. Small bowel is not abnormally dilated consider follow-up study to exclude slowed transit time. -patient was seen by Gastroenterology-recommended advance diet as tolerated # intractable nausea and vomiting likely due to cannabis abuse -continue current management # history of Crohn's disease # history of gallstone # substance abuse marijuana # cholelithiasis Continuing current management. Continuing with IV antibiotic Plan discussed with: Patient Date of Service: Jun 29, 2024 Billing Provider: TESSA MELENDEZ MD Common Visit Codes: [id number] INP/OBS CARE(HIGH) TESSA MELENDEZ MD Jun 29, 2024 12:28
--- NOTE | 2024-06-29 15:20 | DVH ---
CT ABDOMEN AND PELVIS WITHOUT CONTRAST CLINICAL HISTORY: RULE OUT PERFORATION TECHNIQUE: Multiple contiguous axial images of the abdomen and pelvis without intravenous contrast. T he images were reformatted degenerate coronal and sagittal reconstructions. All CT scans at this medical facility are performed using dose modulation techniques as appropriate t o a performed exam including the following:Automated exposure control was utilized; adjustment of the MA and/or KV according to patient size; and use of iterative reconstruction technique. Radiation Dose Information: CT Dose: CTDI volume is 7.27 mGy. Dose-length product is 401.73 mGy*cm Comparison: CT CT AB PEL WO CON-NO ORAL OR IV on DOS: 06/08/24, CT CT AB PEL WO CON-NO ORAL OR IV on D OS: 02/12/23 FINDINGS: Evaluation of the abdomen and pelvis is limited without intravenous contrast. The liver, gallbladder, pancreas, kidneys, adrenal glands, and spleen appear within normal limits. Again seen are subcentimeter mesenteric lymph nodes in the right lower quadrant abdomen. There is no free fluid or free air. The stomach grossly appears unremarkable. The small and large bowel loops demonstrate normal caliber and distribution. A normal appearing appendix is seen in the right lower quadrant abdomen. The large bowel loops are poorly distended. The abdominal aorta and IVC appear within normal limits. The bladder appears unremarkable for the degree of distention. Pelvic organ appears within normal weiss its. There is no gross evidence of a pelvic mass. There is no free fluid collection. Lung bases are clear. There is no acute osseous abnormality. IMPRESSION: 1. There is no acute process in the abdomen and pelvis. 2. Redemonstrated are subcentimeter mesenteric lymph nodes in the right lower quadrant abdomen. These can be seen with mesenteric adenitis. Clinical correlation is recommended. HS:Y
[2024-06-29] MEDS: HYDROMORPHONE HCL 1 MG/ML INJ IV PRN (20:08)
--- NOTE | 2024-06-29 20:34 | DVHPN2 ---
Progress Note Date Seen: Jun 29, 2024 Medical Necessity Reason Pt with a Central, PICC or Fol: No Objective vital signs Vital Sign Date Time Temp Pulse Resp B/P (MAP) Pulse Ox O2 Delivery O2 Flow Rate FiO2 06/29/24 20:08 96 18 117/81 06/29/24 16:30 97.9 95 97.9 06/29/24 08:10 Room Air* 0 21 Total Intake and Output 06/28/24 06/28/24 06/29/24 15:00 23:00 07:00 Intake Total 150 ml 300 ml 400 ml Balance 150 ml 300 ml 400 ml medications Current Medications Medications Dose Ordered Sig/Jack Route Start Time Stop Time Status Last Admin Dose Admin Sodium Chloride 10 ml Q8HR IV 06/27/24 22:00 06/29/24 15:20 10 ML Acetaminophen 325 mg Q4HP PRN PO 06/27/24 18:45 Ondansetron HCl 4 mg Q4HP PRN IV 06/27/24 18:45 06/29/24 20:07 4 MG Dextrose/Sodium Chloride 1,000 ml @ 125 mls/hr Q8H IV 06/27/24 20:00 06/29/24 13:00 125 MLS/HR Pantoprazole Sodium 40 mg DAILY IV 06/28/24 10:00 06/29/24 09:35 40 MG Ceftriaxone Sodium 50 ml @ 100 mls/hr DAILY@09 IV 06/28/24 09:00 06/29/24 09:35 100 MLS/HR Metronidazole 100 ml @ 100 mls/hr Q8HR IV 06/28/24 06:00 06/29/24 14:57 100 MLS/HR Dicyclomine HCl 20 mg QID PRN PO 06/29/24 01:00 06/29/24 02:58 20 MG Mesalamine 800 mg TID PO 06/29/24 06:00 06/29/24 14:57 800 MG Hydromorphone HCl 1 mg Q3HPRN PRN IV 06/29/24 13:00 06/29/24 20:08 1 MG laboratory and microbiology Laboratory Tests 06/29/24 05:52 Test 06/29/24 05:52 Range/Units Serum Glucose 119 H 74-106 mg/dL Microbiology Date/Time Source Procedure Growth Status 06/28/24 01:31 Nose MRSA Screen - Final Complete Problem List/Assessment/Plan Problem List/Assessment/Plan AFEBRILE VSS PAIN RUQ R/O BILIARY COLIC GI EVAL PENDING Plan discussed with: Patient SALMA JAIMES MD Jun 29, 2024 20:34
--- NOTE | 2024-06-29 20:45 | DVHPN2 ---
Progress Note - Dictate Date Seen: Jun 29, 2024 Medical Necessity Reason Pt with a Central, PICC or Fol: No Subjective Patient states that he has not been using marijuana for almost a month however he has toxicology screen was positive for cannabis Patient was feeling better however after bowel movement today developed some lower abdominal cramping There was no GI bleeding, no nausea vomiting today vital signs Vital Sign Date Time Temp Pulse Resp B/P (MAP) Pulse Ox O2 Delivery O2 Flow Rate FiO2 06/29/24 20:08 96 18 117/81 06/29/24 16:30 97.9 95 97.9 06/29/24 08:10 Room Air* 0 21 Total Intake and Output 06/28/24 06/28/24 06/29/24 15:00 23:00 07:00 Intake Total 150 ml 300 ml 400 ml Balance 150 ml 300 ml 400 ml medications Current Medications Medications Dose Ordered Sig/Jack Route Start Time Stop Time Status Last Admin Dose Admin Sodium Chloride 10 ml Q8HR IV 06/27/24 22:00 06/29/24 15:20 10 ML Acetaminophen 325 mg Q4HP PRN PO 06/27/24 18:45 Ondansetron HCl 4 mg Q4HP PRN IV 06/27/24 18:45 06/29/24 20:07 4 MG Dextrose/Sodium Chloride 1,000 ml @ 125 mls/hr Q8H IV 06/27/24 20:00 06/29/24 13:00 125 MLS/HR Pantoprazole Sodium 40 mg DAILY IV 06/28/24 10:00 06/29/24 09:35 40 MG Ceftriaxone Sodium 50 ml @ 100 mls/hr DAILY@09 IV 06/28/24 09:00 06/29/24 09:35 100 MLS/HR Metronidazole 100 ml @ 100 mls/hr Q8HR IV 06/28/24 06:00 06/29/24 14:57 100 MLS/HR Dicyclomine HCl 20 mg QID PRN PO 06/29/24 01:00 06/29/24 02:58 20 MG Mesalamine 800 mg TID PO 06/29/24 06:00 06/29/24 14:57 800 MG Hydromorphone HCl 1 mg Q3HPRN PRN IV 06/29/24 13:00 06/29/24 20:08 1 MG objective General: NAD, AAOX3 Chest: lung marin clear to auscultation Heart: RRR, no murmur Abdomen: Mild-distended, mild tenderness to palpation, +BS laboratory and microbiology Laboratory Tests 06/29/24 05:52 Test 06/29/24 05:52 Range/Units Serum Glucose 119 H 74-106 mg/dL Problems(with codes): (1) Cholelithiasis (2) Intractable abdominal pain (3) Crohn's ileitis (4) Acute kidney injury (5) N&V (nausea and vomiting) (6) Abdominal pain (7) Mesenteric adenitis (8) Gastroenteritis (9) Gastritis Prognosis Plan Patient is currently on mesalamine Bentyl 20 mg p.o. twice a day as needed for abdominal pain If symptoms persist consider HIDA scan Surgical consult is following Patient does not need any repeat endoscopy or colonoscopy at this time I will order small-bowel follow-through x-ray to evaluate small intestine, I had ordered that from my clinic as an outpatient Plan discussed with: Patient REZA JAIMES MD Jun 29, 2024 20:45
[2024-06-29] MEDS: DICYCLOMINE HCL 10 MG CAP PO SCH (22:17)
[2024-06-30] VITALS (8 sets, daily range): BP systolic 95–141; BP diastolic 66–82; PULSE 61–82; RESP 16–19; TEMP 97.4–98.6; O2SAT 96–100
[2024-06-30] MEDS: HYDROmorphone HCL 2 MG/ML VL/or syr IV PRN (00:59)
--- NOTE | 2024-06-30 11:36 | DVHPN2 ---
Progress Note Date Seen: Jun 30, 2024 Medical Necessity Reason Pt with a Central, PICC or Fol: No Objective vital signs Vital Sign Date Time Temp Pulse Resp B/P (MAP) Pulse Ox O2 Delivery O2 Flow Rate FiO2 06/30/24 08:00 68 18 96 Room Air* 0 21 06/30/24 06:06 107/70 06/30/24 05:00 97.9 97.9 Total Intake and Output 06/29/24 06/29/24 06/30/24 15:00 23:00 07:00 Intake Total 150 ml 500 ml 2200 ml Balance 150 ml 500 ml 2200 ml medications Current Medications Medications Dose Ordered Sig/Jack Route Start Time Stop Time Status Last Admin Dose Admin Sodium Chloride 10 ml Q8HR IV 06/27/24 22:00 06/30/24 05:34 10 ML Acetaminophen 325 mg Q4HP PRN PO 06/27/24 18:45 Ondansetron HCl 4 mg Q4HP PRN IV 06/27/24 18:45 06/30/24 05:34 4 MG Dextrose/Sodium Chloride 1,000 ml @ 125 mls/hr Q8H IV 06/27/24 20:00 06/30/24 00:45 125 MLS/HR Pantoprazole Sodium 40 mg DAILY IV 06/28/24 10:00 06/30/24 08:17 40 MG Ceftriaxone Sodium 50 ml @ 100 mls/hr DAILY@09 IV 06/28/24 09:00 06/30/24 08:18 100 MLS/HR Metronidazole 100 ml @ 100 mls/hr Q8HR IV 06/28/24 06:00 06/30/24 05:34 100 MLS/HR Mesalamine 800 mg TID PO 06/29/24 06:00 06/30/24 05:34 800 MG Dicyclomine HCl 20 mg BID PO 06/29/24 22:00 06/30/24 08:17 20 MG Hydromorphone HCl 1 mg Q3HPRN PRN IV 06/29/24 21:45 06/30/24 05:36 1 MG laboratory and microbiology Laboratory Tests 06/29/24 05:52 Test 06/29/24 05:52 Range/Units Serum Glucose 119 H 74-106 mg/dL Microbiology Date/Time Source Procedure Growth Status 06/28/24 01:31 Nose MRSA Screen - Final Complete Problem List/Assessment/Plan Problem List/Assessment/Plan AFEBRILE VSS PAIN RUQ R/O BILIARY COLIC ALLOW CLEAR LIQUIDS CONSIDER LAP/OPEN CHOLECYSTECTOMY AM BASED UPON ONGOING EVAL CBC CMP AM Plan discussed with: Patient SALMA JAIMES MD Jun 30, 2024 11:36
--- NOTE | 2024-06-30 11:49 | DVHPN2 ---
Subjective The patient seen and examined at bedside. Complain of abdominal pain. Reviewed: Care Plan, H&P, Labs, Medications, Previous Orders, Radiology Changes from previous H/P or p: No Changes Objective Vitals Vital Signs Date Time Temp Pulse Resp B/P (MAP) Pulse Ox O2 Delivery O2 Flow Rate FiO2 06/30/24 08:00 68 18 96 Room Air* 0 21 06/30/24 06:06 107/70 06/30/24 05:00 97.9 97.9 Intake/Output Intake and Output 06/30/24 07:00 Intake Total 2850 ml Balance 2850 ml Intake Oral 1200 ml IV Total 1650 ml # Voids 6 General Appearance: Alert, Oriented X3, Cooperative, No acute distress HEENT: Atraumatic, PERRLA, EOMI, Mucous membr. moist/pink Neck: Supple Lungs: Clear to auscultation, Normal air movement Cardiovascular: Regular rate, Normal S1, Normal S2, No murmurs, Gallops, Rubs Abdomen: Normal bowel sounds, Soft Neuro: Cranial nerves 3-12 NL Psych/Mental Status: Mental status NL Medications Current Medications Medications Dose Ordered Sig/Jack Route Start Time Stop Time Status Last Admin Dose Admin Sodium Chloride 10 ml Q8HR IV 06/27/24 22:00 06/30/24 05:34 10 ML Acetaminophen 325 mg Q4HP PRN PO 06/27/24 18:45 Ondansetron HCl 4 mg Q4HP PRN IV 06/27/24 18:45 06/30/24 05:34 4 MG Dextrose/Sodium Chloride 1,000 ml @ 125 mls/hr Q8H IV 06/27/24 20:00 06/30/24 00:45 125 MLS/HR Pantoprazole Sodium 40 mg DAILY IV 06/28/24 10:00 06/30/24 08:17 40 MG Ceftriaxone Sodium 50 ml @ 100 mls/hr DAILY@09 IV 06/28/24 09:00 06/30/24 08:18 100 MLS/HR Metronidazole 100 ml @ 100 mls/hr Q8HR IV 06/28/24 06:00 06/30/24 05:34 100 MLS/HR Mesalamine 800 mg TID PO 06/29/24 06:00 06/30/24 05:34 800 MG Dicyclomine HCl 20 mg BID PO 06/29/24 22:00 06/30/24 08:17 20 MG Hydromorphone HCl 1 mg Q3HPRN PRN IV 06/29/24 21:45 06/30/24 05:36 1 MG Laboratory Results Laboratory Tests 06/29/24 05:52 Urinalysis Test 06/28/24 06:35 Urine Color Yellow (Yellow) Urine Clarity Clear (Clear) Urine pH 5.5 (5.0-9.0) Urine Specific [place] 1.030 (1.001-1.035) Urine Protein Trace (Negative) H Urine Ketones 1+ (Negative) H Urine Blood Negative /uL (Negative) Urine Nitrite Negative (Negative) Urine Bilirubin Negative (Negative) Urine Urobilinogen Normal mg/dL (Negative) Urine Leukocyte Esterase Negative /uL (Negative) Urine RBC 1 /hpf (0 - 3) Urine Microscopic WBC 9 /HPF (0-3) H Urine Squamous Epithelial Cells None seen /hpf (<5) Urine Bacteria None seen /hpf (None Seen) Urine Mucus Few (None Seen) Urine Glucose Normal mg/dL (Normal) Microbiology Microbiology Date/Time Source Procedure Growth Status 06/28/24 01:31 Nose MRSA Screen - Final Complete Labs and/or images reviewed: Labs reviewed by me Assessment/Plan Assessment/Plan # intractable abdominal pain with the likely due to acute gastroenteritis /cannabis abuse nausea and vomiting # mesenteric adenitis # Crohn's ileitis -CT abdomen- Redemonstrated are subcentimeter mesenteric lymph nodes in the right lower quadrant abdomen. These can be seen with mesenteric adenitis. Clinical correlation is recommended. There is no acute process in the abdomen and pelvis. - Barium swallow-Initial precision machinist view of the abdomen and pelvis appears demonstrates no acute process. Contrast is identified in the colon after 3 hours. Small bowel is not abnormally dilated consider follow-up study to exclude slowed transit time. -patient was seen by Gastroenterology-recommended advance diet as tolerated # intractable nausea and vomiting likely due to cannabis abuse -continue current management # history of Crohn's disease # history of gallstone # substance abuse marijuana # cholelithiasis Plan discussed with: Patient My Orders Orders - TESSA MELENDEZ MD Procedure Category Date Status Time * Gi Dvh Sheet Metal Duct Installer CONS 06/29/24 Transmitted 12:49 Ct Ab Pel Wo Con-No CT 06/29/24 Resulted Oral Or Iv 13:04 Hydromorphone PHA 06/29/24 In Process Injection (Dilaudid 21:45 Date of Service: Jun 30, 2024 Billing Provider: TESSA MELENDEZ MD Common Visit Codes: [id number] INP/OBS CARE(HIGH) TESSA MELENDEZ MD Jun 30, 2024 11:48
[2024-06-30] MEDS ORDERED: EZ PAQUE SUSP 12OZ BTL ONE (14:25)
--- NOTE | 2024-06-30 17:22 | DVHPN2 ---
Progress Note - Dictate Date Seen: Jun 30, 2024 Medical Necessity Reason Pt with a Central, PICC or Fol: No Subjective Patient underwent a small bowel series today and the results are pending Patient was feeling better today There was no GI bleeding, no nausea vomiting today Patient states that he has not been using marijuana for almost a month however he has toxicology screen was positive for cannabis vital signs Vital Sign Date Time Temp Pulse Resp B/P (MAP) Pulse Ox O2 Delivery O2 Flow Rate FiO2 06/30/24 14:30 68 18 100/62 06/30/24 13:00 97.4 100 97.4 06/30/24 08:00 Room Air* 0 21 Total Intake and Output 06/29/24 06/29/24 06/30/24 15:00 23:00 07:00 Intake Total 150 ml 500 ml 2200 ml Balance 150 ml 500 ml 2200 ml medications Current Medications Medications Dose Ordered Sig/Jack Route Start Time Stop Time Status Last Admin Dose Admin Sodium Chloride 10 ml Q8HR IV 06/27/24 22:00 06/30/24 13:47 10 ML Acetaminophen 325 mg Q4HP PRN PO 06/27/24 18:45 Ondansetron HCl 4 mg Q4HP PRN IV 06/27/24 18:45 06/30/24 13:59 4 MG Dextrose/Sodium Chloride 1,000 ml @ 125 mls/hr Q8H IV 06/27/24 20:00 06/30/24 13:47 125 MLS/HR Pantoprazole Sodium 40 mg DAILY IV 06/28/24 10:00 06/30/24 08:17 40 MG Ceftriaxone Sodium 50 ml @ 100 mls/hr DAILY@09 IV 06/28/24 09:00 06/30/24 08:18 100 MLS/HR Metronidazole 100 ml @ 100 mls/hr Q8HR IV 06/28/24 06:00 06/30/24 13:47 100 MLS/HR Mesalamine 800 mg TID PO 06/29/24 06:00 06/30/24 13:48 800 MG Dicyclomine HCl 20 mg BID PO 06/29/24 22:00 06/30/24 08:17 20 MG Hydromorphone HCl 1 mg Q3HPRN PRN IV 06/29/24 21:45 06/30/24 14:00 1 MG objective General: NAD, AAOX3 Chest: lung marin clear to auscultation Heart: RRR, no murmur Abdomen: Mild-distended, mild tenderness to palpation, +BS laboratory and microbiology Laboratory Tests 06/29/24 05:52 Test 06/29/24 05:52 Range/Units Serum Glucose 119 H 74-106 mg/dL Problems(with codes): (1) N&V (nausea and vomiting) (2) Crohn's ileitis (3) Abdominal pain (4) Mesenteric adenitis (5) Cholelithiasis (6) Intractable abdominal pain (7) Cannabis abuse Prognosis Plan Leukocytosis is improving on IV antibiotics Patient has had a previous endoscopy and colonoscopy recently and does not need repeat endoscopic workup at this time I am meeting a small bowel series results to evaluate his small intestine involvement for possible Crohn's Surgical consult is on board and there is a plan for possible laparoscopic cholecystectomy for suspected cholelithiasis with chronic cholecystitis Dietary Evaluation Review Comments: 1) Advance diet as medically feasible 2) Ensure clear 240ml TID (ordered per ONS protocol) 3) Continue current plan of care Expected Outcomes/Goals: Pt will meet 75% estimated needs Fu 2-3 days Plan discussed with: Patient REZA JAIMES MD Jun 30, 2024 17:22
--- NOTE | 2024-06-30 19:31 | DVH ---
Procedure: XY SMALL BOWEL SERIES-W BARIUM Reason for study/Clinical History: CROHN'S ILEITIS; ABDOMINAL PAIN Comparison Study: None available at time of dictation. Technique: Single contrast small bowel series performed. FINDINGS/IMPRESSION: Initial scout professional sports view of the abdomen and pelvis appears demonstrates no acute process. Contrast is identified in the colon after 3 hours. Small bowel is not abnormally dilated consider fol low-up study to exclude slowed transit time. HS:Y
[2024-07-01] VITALS (8 sets, daily range): BP systolic 100–116; BP diastolic 53–75; PULSE 18–87; RESP 17–18; TEMP 97.8–98.5; O2SAT 96–99
[2024-07-01 06:18] LABS: Basophils # (auto) 0 10 ^3/uL (0-0.2); Basophils % (auto) 0.6 % (0.0-2.0); Eosinophils # (auto) 0.1 10 ^3/uL (0-0.8); Eosinophils % (auto) 1.7 % (0.0-7.0); Hematocrit 41.9 % (41.0-53.0); Lymphocytes % (auto) 31.7 % (10.0-50.0); Mean Corpuscular Hemoglobin 28.7 pg (28.0-32.0); Mean Corpuscular Hgb Conc. 33.4 g/dL (32.0-36.0); Mean Corpuscular Volume 86.1 fL (80.0-100.0); Monocytes # (auto) 0.6 10 ^3/uL (0-1.3); Monocytes % (auto) 9.2 % (0.0-12.0); Neutrophils # (auto) 3.5 10 ^3/uL (1.6-8.6); Neutrophils % (auto) 56.8 % (37.0-80.0); Platelet Count (auto) 223 10^3/uL (140-450); Red Blood Cells 4.87 10^6/uL (4.5-5.90); Red Cell Distribution Width 14.6 % (11.8-14.3); White Blood Cell 6.2 10^3/uL (4.4-10.8)
[2024-07-01 06:22] LABS: Anion Gap 9 (5-15); Carbon Dioxide 25 mmol/L (20-31); Chloride 105 mmol/L (98-107); Sodium 139 mmol/L (136-145)
[2024-07-01 06:23] LABS: Calcium 8.8 mg/dL (8.7-10.4)
[2024-07-01 06:28] LABS: Glucose 101 mg/dL (74-106)
[2024-07-01 07:05] LABS: BUN/Creatinine Ratio 5.3 (10.0-20.0); Blood Urea Nitrogen < 5 mg/dL (9-23)
--- NOTE | 2024-07-01 11:49 | DVHPN2 ---
Subjective The patient is seen and examined at bedside. Still complain of abdominal pain today. Reviewed: Care Plan, H&P, Labs, Medications, Previous Orders, Radiology Changes from previous H/P or p: No Changes Objective Vitals Vital Signs Date Time Temp Pulse Resp B/P (MAP) Pulse Ox O2 Delivery O2 Flow Rate FiO2 07/01/24 09:00 97.9 61 17 107/66 (80) 97 97.9 06/30/24 20:00 Room Air* 0 21 Intake/Output Intake and Output 07/01/24 07:00 Intake Total 1200 ml Output Total 600 ml Balance 600 ml Intake Oral 900 ml IV Total 300 ml Output Urine Total 600 ml # Bowel Movements 1 General Appearance: Alert, Oriented X3, Cooperative, No acute distress HEENT: Atraumatic, PERRLA, EOMI, Mucous membr. moist/pink Neck: Supple Lungs: Clear to auscultation, Normal air movement Cardiovascular: Regular rate, Normal S1, Normal S2, No murmurs, Gallops, Rubs Abdomen: Normal bowel sounds, Soft Neuro: Cranial nerves 3-12 NL Psych/Mental Status: Mental status NL Medications Current Medications Medications Dose Ordered Sig/Jack Route Start Time Stop Time Status Last Admin Dose Admin Sodium Chloride 10 ml Q8HR IV 06/27/24 22:00 07/01/24 05:04 10 ML Acetaminophen 325 mg Q4HP PRN PO 06/27/24 18:45 Ondansetron HCl 4 mg Q4HP PRN IV 06/27/24 18:45 07/01/24 07:39 4 MG Dextrose/Sodium Chloride 1,000 ml @ 125 mls/hr Q8H IV 06/27/24 20:00 07/01/24 02:32 125 MLS/HR Pantoprazole Sodium 40 mg DAILY IV 06/28/24 10:00 07/01/24 08:45 40 MG Ceftriaxone Sodium 50 ml @ 100 mls/hr DAILY@09 IV 06/28/24 09:00 07/01/24 08:45 100 MLS/HR Metronidazole 100 ml @ 100 mls/hr Q8HR IV 06/28/24 06:00 07/01/24 05:04 100 MLS/HR Mesalamine 800 mg TID PO 06/29/24 06:00 06/30/24 22:36 800 MG Dicyclomine HCl 20 mg BID PO 06/29/24 22:00 07/01/24 08:45 20 MG Hydromorphone HCl 1 mg Q3HPRN PRN IV 06/29/24 21:45 07/01/24 07:40 1 MG Laboratory Results Laboratory Tests 07/01/24 05:20 Chemistry Test 07/01/24 05:20 Calcium Level 8.8 mg/dL (8.7-10.4) Urinalysis Test 06/28/24 06:35 Urine Color Yellow (Yellow) Urine Clarity Clear (Clear) Urine pH 5.5 (5.0-9.0) Urine Specific [place] 1.030 (1.001-1.035) Urine Protein Trace (Negative) H Urine Ketones 1+ (Negative) H Urine Blood Negative /uL (Negative) Urine Nitrite Negative (Negative) Urine Bilirubin Negative (Negative) Urine Urobilinogen Normal mg/dL (Negative) Urine Leukocyte Esterase Negative /uL (Negative) Urine RBC 1 /hpf (0 - 3) Urine Microscopic WBC 9 /HPF (0-3) H Urine Squamous Epithelial Cells None seen /hpf (<5) Urine Bacteria None seen /hpf (None Seen) Urine Mucus Few (None Seen) Urine Glucose Normal mg/dL (Normal) Microbiology Microbiology Date/Time Source Procedure Growth Status 06/28/24 01:31 Nose MRSA Screen - Final Complete Labs and/or images reviewed: Labs reviewed by me Assessment/Plan Assessment/Plan # intractable abdominal pain with the likely due to acute gastroenteritis /cannabis abuse nausea and vomiting # mesenteric adenitis # Crohn's ileitis -CT abdomen- Redemonstrated are subcentimeter mesenteric lymph nodes in the right lower quadrant abdomen. These can be seen with mesenteric adenitis. Clinical correlation is recommended. There is no acute process in the abdomen and pelvis. - Barium swallow-Initial paper products inspector view of the abdomen and pelvis appears demonstrates no acute process. Contrast is identified in the colon after 3 hours. Small bowel is not abnormally dilated consider follow-up study to exclude slowed transit time. -patient was seen by Gastroenterology-recommended advance diet as tolerated # intractable nausea and vomiting likely due to cannabis abuse -continue current management # history of Crohn's disease # history of gallstone # substance abuse marijuana # cholelithiasis waiting for surgeon to see the patient for possible cholecystectomy. Plan discussed with: Patient Date of Service: Jul 01, 2024 Billing Provider: TESSA MELENDEZ MD Common Visit Codes: [id number] INP/OBS CARE(HIGH) TESSA MELENDEZ MD Jul 01, 2024 11:49
--- NOTE | 2024-07-01 12:57 | ECG ---
[facility] Test Date: 2024-07-01 Test Time: 03:54:01 Pat Name: GISELL OSEGUERA Department: Room: 0286T B Gender: M Press Offbearer: FLOR : 1995 Requested By: REZA JAIMES Order Number: [id number] Reading MD: Vipin Gale Measurements Intervals [place] Rate: 63 P: 20 MN: 146 QRS: 82 QRSD: 88 T: 7 QT: 393 QTc: 403 Interpretive Statements Sinus rhythm ST elev, probable normal early repol pattern Electronically Signed On 07-04-2024 20:32:46 PDT by Vipin Gale Please click the below link to view image of tracing.
--- NOTE | 2024-07-01 15:06 | DVHPN2 ---
Progress Note Date Seen: Jul 01, 2024 Medical Necessity Reason Pt with a Central, PICC or Fol: No Objective vital signs Vital Sign Date Time Temp Pulse Resp B/P (MAP) Pulse Ox O2 Delivery O2 Flow Rate FiO2 07/01/24 13:00 97.8 74 18 107/66 (80) 99 97.8 07/01/24 08:00 Room Air* 0 21 Total Intake and Output 06/30/24 06/30/24 07/01/24 15:00 23:00 07:00 Intake Total 100 ml 900 ml 200 ml Output Total 600 ml Balance 100 ml 900 ml -400 ml medications Current Medications Medications Dose Ordered Sig/Jack Route Start Time Stop Time Status Last Admin Dose Admin Sodium Chloride 10 ml Q8HR IV 06/27/24 22:00 07/01/24 14:20 10 ML Acetaminophen 325 mg Q4HP PRN PO 06/27/24 18:45 Ondansetron HCl 4 mg Q4HP PRN IV 06/27/24 18:45 07/01/24 07:39 4 MG Dextrose/Sodium Chloride 1,000 ml @ 125 mls/hr Q8H IV 06/27/24 20:00 07/01/24 02:32 125 MLS/HR Pantoprazole Sodium 40 mg DAILY IV 06/28/24 10:00 07/01/24 08:45 40 MG Ceftriaxone Sodium 50 ml @ 100 mls/hr DAILY@09 IV 06/28/24 09:00 07/01/24 08:45 100 MLS/HR Metronidazole 100 ml @ 100 mls/hr Q8HR IV 06/28/24 06:00 07/01/24 05:04 100 MLS/HR Mesalamine 800 mg TID PO 06/29/24 06:00 07/01/24 14:30 800 MG Dicyclomine HCl 20 mg BID PO 06/29/24 22:00 07/01/24 08:45 20 MG Hydromorphone HCl 1 mg Q3HPRN PRN IV 06/29/24 21:45 07/01/24 07:40 1 MG laboratory and microbiology Laboratory Tests 07/01/24 05:20 Test 07/01/24 05:20 Range/Units Serum Glucose 101 74-106 mg/dL Microbiology Date/Time Source Procedure Growth Status 06/28/24 01:31 Nose MRSA Screen - Final Complete Problem List/Assessment/Plan Problem List/Assessment/Plan AFEBRILE VSS PAIN RUQ RESOLVED ALLOW CLEAR LIQUIDS CBC CMP AM Plan discussed with: Patient My Orders My Orders Orders - SALMA JAIMES MD Procedure Category Date Status Time Clear Liq Diet DIET 07/01/24 Transmitted Dinner Dietary Evaluation Review Comments: 1) Advance diet as medically feasible 2) Ensure clear 240ml TID (ordered per ONS protocol) 3) Continue current plan of care Expected Outcomes/Goals: Pt will meet 75% estimated needs Fu 2-3 days SALMA JAIMES MD Jul 01, 2024 15:06
--- NOTE | 2024-07-01 22:14 | DVHPN2 ---
Progress Note - Dictate Date Seen: Jul 01, 2024 Medical Necessity Reason Pt with a Central, PICC or Fol: No Subjective Patient underwent a small bowel series And there was no evidence of ileitis or strictures Patient was feeling better today, less abdominal pain There was no GI bleeding, no nausea vomiting today Patient states that he has not been using marijuana for almost a month however he has toxicology screen was positive for cannabis vital signs Vital Sign Date Time Temp Pulse Resp B/P (MAP) Pulse Ox O2 Delivery O2 Flow Rate FiO2 07/01/24 22:00 83 17 111/75 07/01/24 21:00 98.3 97 98.3 07/01/24 20:00 Room Air* 0 21 Total Intake and Output 06/30/24 06/30/24 07/01/24 15:00 23:00 07:00 Intake Total 100 ml 900 ml 200 ml Output Total 600 ml Balance 100 ml 900 ml -400 ml medications Current Medications Medications Dose Ordered Sig/Jack Route Start Time Stop Time Status Last Admin Dose Admin Sodium Chloride 10 ml Q8HR IV 06/27/24 22:00 07/01/24 22:04 10 ML Acetaminophen 325 mg Q4HP PRN PO 06/27/24 18:45 Ondansetron HCl 4 mg Q4HP PRN IV 06/27/24 18:45 07/01/24 21:59 4 MG Dextrose/Sodium Chloride 1,000 ml @ 125 mls/hr Q8H IV 06/27/24 20:00 07/01/24 18:57 125 MLS/HR Pantoprazole Sodium 40 mg DAILY IV 06/28/24 10:00 07/01/24 08:45 40 MG Ceftriaxone Sodium 50 ml @ 100 mls/hr DAILY@09 IV 06/28/24 09:00 07/01/24 08:45 100 MLS/HR Metronidazole 100 ml @ 100 mls/hr Q8HR IV 06/28/24 06:00 07/01/24 21:47 100 MLS/HR Mesalamine 800 mg TID PO 06/29/24 06:00 07/01/24 21:48 800 MG Dicyclomine HCl 20 mg BID PO 06/29/24 22:00 07/01/24 21:48 20 MG Hydromorphone HCl 1 mg Q3HPRN PRN IV 06/29/24 21:45 07/01/24 22:00 1 MG objective General: NAD, AAOX3 Chest: lung marin clear to auscultation Heart: RRR, no murmur Abdomen: Mild-distended, mild tenderness to palpation, +BS laboratory and microbiology Laboratory Tests 07/01/24 05:20 Test 07/01/24 05:20 Range/Units Serum Glucose 101 74-106 mg/dL Problems(with codes): (1) Cannabis abuse (2) N&V (nausea and vomiting) (3) Crohn's ileitis (4) Gastroenteritis (5) Abdominal pain (6) Mesenteric adenitis (7) Cholelithiasis Prognosis Plan Patient has been started on clear liquid diet Surgeon is following patient Possible elective outpatient cholecystectomy No signs of diarrhea or rectal bleeding which points against colitis or ileitis Small-bowel follow-through was also negative Advance diet as tolerated Continue supportive care Patient has an outpatient clinic follow up one appointment with me Dietary Evaluation Review Comments: 1) Advance diet as medically feasible 2) Ensure clear 240ml TID (ordered per ONS protocol) 3) Continue current plan of care Expected Outcomes/Goals: Pt will meet 75% estimated needs Fu 2-3 days Plan discussed with: Patient, Other (Dr Beau Pleitez) REZA PLEITEZ MD Jul 01, 2024 22:14
[2024-07-02] VITALS (8 sets, daily range): BP systolic 102–131; BP diastolic 50–80; PULSE 58–88; RESP 17–18; TEMP 97.4–98.3; O2SAT 94–100
[2024-07-02 13:04] LABS: Basophils # (auto) 0 10 ^3/uL (0-0.2); Basophils % (auto) 0.4 % (0.0-2.0); Eosinophils # (auto) 0.1 10 ^3/uL (0-0.8); Eosinophils % (auto) 1.1 % (0.0-7.0); Hematocrit 47.2 % (41.0-53.0); Hemoglobin 15.5 g/dL (13.5-17.5); Lymphocytes # (auto) 2.5 10 ^3/uL (0.4-5.4); Lymphocytes % (auto) 37.7 % (10.0-50.0); Mean Corpuscular Hemoglobin 28.5 pg (28.0-32.0); Mean Corpuscular Hgb Conc. 32.9 g/dL (32.0-36.0); Mean Corpuscular Volume 86.7 fL (80.0-100.0); Monocytes # (auto) 0.5 10 ^3/uL (0-1.3); Monocytes % (auto) 7.5 % (0.0-12.0); Neutrophils # (auto) 3.5 10 ^3/uL (1.6-8.6); Neutrophils % (auto) 53.3 % (37.0-80.0); Nucleated Red Blood Cells % 0.1 %; Platelet Count (auto) 256 10^3/uL (140-450); Red Blood Cells 5.44 10^6/uL (4.5-5.90); Red Cell Distribution Width 14.9 % (11.8-14.3); White Blood Cell 6.6 10^3/uL (4.4-10.8)
[2024-07-02 13:12] LABS: Chloride 104 mmol/L (98-107); Sodium 141 mmol/L (136-145)
[2024-07-02 13:13] LABS: Anion Gap 7 (5-15); Carbon Dioxide 30 mmol/L (20-31)
[2024-07-02 13:14] LABS: Calcium 9.3 mg/dL (8.7-10.4)
[2024-07-02 13:19] LABS: BUN/Creatinine Ratio 5.7 (10.0-20.0); Blood Urea Nitrogen < 5 mg/dL (9-23); Glucose 112 mg/dL (74-106); Potassium 3.4 mmol/L (3.5-5.1)
[2024-07-02] MEDS ORDERED: LORazepam 2MG/ML-1ML VIAL IV PRN (16:00)
[2024-07-02] MEDS ORDERED: METOCLOPRAMIDE HCL 5MG/ml INJ 2ml VIAL IV PRN ×2 (16:00→16:45)
--- NOTE | 2024-07-02 16:04 | DVHPNRES ---
Progress Note Date Seen: Jul 02, 2024 Resident Creating Document: RUBÉN DELAROSA RESIDENT Medical Necessity Reason Pt with a Central, PICC or Fol: No Subjective Review of Systems Patient is 28 years old male with past medical history of mild Crohn's disease, gallstone, inflammation of the bowel came with a complaint of intractable abdominal pain. As per patient he has been having intractable upper abdominal pain, sudden onset, 9/10, cramping in nature, relieved with leaning forward, aggravated with food. Patient was endorsed nausea and vomiting almost 10-15 times, mostly yellowish colored fluid, no blood. Patient denied any fever or dysuria, acute joint pain or swelling or sick contact. Patient uses marijuana which he used as per patient 3 days before. Patient was recently discharged from the [facility] on [facility]. Initial lab workup revealed for leukocytosis with WBC 11.2. Lipase within normal limit. CT abdomen- Redemonstrated are subcentimeter mesenteric lymph nodes in the right lower quadrant abdomen. These can be seen with mesenteric adenitis. Clinical correlation is recommended. There is no acute process in the abdomen and pelvis. Barium swallow-Initial tile layer drainage view of the abdomen and pelvis appears demonstrates no acute process. Contrast is identified in the colon after 3 hours. Small bowel is not abnormally dilated consider follow-up study to exclude slowed transit time. On 06/08/2024- Infectious or inflammatory colitis. Mesenteric and right lower quadrant lymphadenopathy can be seen with mesenteric adenitis. prior exam from 2022. Likely hemangioma in the T12 vertebral body. This can be Sludge in the gallbladder. On 06/08/2024-Cholelithiasis without sonographic evidence of acute cholecystitis. HIDA scan on 06/11/2024 was negative for acute cholecystitis PMH-Crohn's disease, gallstone, inflammation of the bowel PSH- repair of the pyloric stenosis when he was a child Allergy- NKDA Past Medical History Crohn's disease, gallstone, inflammation of the bowel Past Surgical History Repair of pyloric stenosis during child Past Social History Lives with girlfriend, substance abuse marijuana Patient was seen today for clinical evaluation. Labs and chart reviewed. Patient reports feeling better today, tolerating liquid diet well. Patient was seen by Gastroenterology, recommendation reviewed and appreciated. Patient was also seen surgeon, possible elective outpatient cholecystectomy. Small-bowel follow-through was also negative. Gastroenterology recommended Advance diet as tolerated. CT abdomen- Redemonstrated are subcentimeter mesenteric lymph nodes in the right lower quadrant abdomen. These can be seen with mesenteric adenitis. Clinical correlation is recommended. There is no acute process in the abdomen and pelvis. Barium swallow-Initial tile layer drainage view of the abdomen and pelvis appears demonstrates no acute process. Contrast is identified in the colon after 3 hours. Small bowel is not abnormally dilated consider follow-up study to exclude slowed transit time. Objective vital signs Vital Sign Date Time Temp Pulse Resp B/P (MAP) Pulse Ox O2 Delivery O2 Flow Rate FiO2 07/02/24 13:00 97.7 61 18 102/57 (72) 100 97.7 07/02/24 08:00 Room Air* 0 21 Total Intake and Output 07/01/24 07/01/24 07/02/24 15:00 23:00 07:00 Intake Total 50 ml 1150 ml 1700 ml Balance 50 ml 1150 ml 1700 ml medications Current Medications Medications Dose Ordered Sig/Jack Route Start Time Stop Time Status Last Admin Dose Admin Sodium Chloride 10 ml Q8HR IV 06/27/24 22:00 07/02/24 14:07 10 ML Acetaminophen 325 mg Q4HP PRN PO 06/27/24 18:45 Ondansetron HCl 4 mg Q4HP PRN IV 06/27/24 18:45 07/02/24 15:11 4 MG Dextrose/Sodium Chloride 1,000 ml @ 125 mls/hr Q8H IV 06/27/24 20:00 07/02/24 15:11 125 MLS/HR Pantoprazole Sodium 40 mg DAILY IV 06/28/24 10:00 07/02/24 08:39 40 MG Ceftriaxone Sodium 50 ml @ 100 mls/hr DAILY@09 IV 06/28/24 09:00 07/02/24 08:38 100 MLS/HR Metronidazole 100 ml @ 100 mls/hr Q8HR IV 06/28/24 06:00 07/02/24 14:02 100 MLS/HR Mesalamine 800 mg TID PO 06/29/24 06:00 07/02/24 14:02 800 MG Dicyclomine HCl 20 mg BID PO 06/29/24 22:00 07/02/24 08:43 20 MG Hydromorphone HCl 1 mg Q3HPRN PRN IV 06/29/24 21:45 07/02/24 10:44 1 MG Examination General examination- patient awake, alert, oriented HEENT- PEERLA, no acute nasal discharge Cardiovascular- S1-S2 audible, rate and rhythm regular, no murmur Respiratory- CTAB, no wheeze or rhonchi Gastrointestinal-epigastric tenderness+, bowel sound+. Nondistended Musculoskeletal-no acute joint swelling or tenderness or redness Lower extremity- no leg edema Neurological- cranial nerves intact, no acute dysarthria or dysphagia Psychiatry- denies depression or SI or HI Skin- no acute rash or purpura laboratory and microbiology Laboratory Tests 07/02/24 12:52 Test 07/02/24 12:52 Range/Units Serum Glucose 112 H 74-106 mg/dL Microbiology Date/Time Source Procedure Growth Status 06/28/24 01:31 Nose MRSA Screen - Final Complete Problem List/Assessment/Plan Problem List/Assessment/Plan Assessment and plan # intractable abdominal pain with the likely due to acute gastroenteritis /cannabis abuse nausea and vomiting # mesenteric adenitis # Crohn's ileitis -CT abdomen- Redemonstrated are subcentimeter mesenteric lymph nodes in the right lower quadrant abdomen. These can be seen with mesenteric adenitis. Clinical correlation is recommended. There is no acute process in the abdomen and pelvis. - Barium swallow-Initial tile layer drainage view of the abdomen and pelvis appears demonstrates no acute process. Contrast is identified in the colon after 3 hours. Small bowel is not abnormally dilated consider follow-up study to exclude slowed transit time. -patient was seen by Gastroenterology-recommended advance diet as tolerated # intractable nausea and vomiting likely due to cannabis abuse -continue current management # history of Crohn's disease # history of gallstone # substance abuse marijuana # cholelithiasis Plan Pantoprazole 40 mg IV b.i.d. Continue ceftriaxone 1 g IV daily Continue metronidazole 500 mg IV t.i.d. Mesalamine 800 mg p.o. b.i.d. Dicyclomine 20 mg p.o. b.i.d. Continue other pain medication as prescribed Pending GI consult Goals of care, Code status ; discussed with >15 minutes PUD prophylaxis: Pantoprazole DVT prophylaxis: Patient ambulating Plan discussed with Dr. Marx, nursing staff, Total time spent on patient evaluation, chart review, assessment and plan, discussion discussion >30 minutes Plan discussed with: Patient, Other (RN) Plan discussed with: Patient (Partner, EN ) Dietary Evaluation Review Comments: 1) Advance diet as medically feasible 2) Ensure clear 240ml TID (ordered per ONS protocol) 3) Continue current plan of care Expected Outcomes/Goals: Pt will meet 75% estimated needs Fu 2-3 days Date of Service: Jul 02, 2024 Billing Provider: ALEJO KHAN MD Common Visit Codes: [id number] INP/OBS CARE(HIGH) RUBÉN DELAROSA RESIDENT Jul 02, 2024 16:04 ALEJO KHAN MD Jul 11, 2024 01:32
--- NOTE | 2024-07-02 22:56 | DVHPN2 ---
Progress Note - Dictate Date Seen: Jul 02, 2024 Medical Necessity Reason Pt with a Central, PICC or Fol: No Subjective Patient was put on a full liquid diet However the meal was somewhat fatty and patient develops lower abdominal pain and discomfort afterwards Surgical consult is following Patient underwent a small bowel series And there was no evidence of ileitis or strictures vital signs Vital Sign Date Time Temp Pulse Resp B/P (MAP) Pulse Ox O2 Delivery O2 Flow Rate FiO2 07/02/24 21:03 66 16 126/71 07/02/24 20:00 Room Air* 0 21 07/02/24 17:00 98.2 100 98.2 Total Intake and Output 07/01/24 07/01/24 07/02/24 15:00 23:00 07:00 Intake Total 50 ml 1150 ml 1700 ml Balance 50 ml 1150 ml 1700 ml medications Current Medications Medications Dose Ordered Sig/Jack Route Start Time Stop Time Status Last Admin Dose Admin Sodium Chloride 10 ml Q8HR IV 06/27/24 22:00 07/02/24 21:29 10 ML Acetaminophen 325 mg Q4HP PRN PO 06/27/24 18:45 Ondansetron HCl 4 mg Q4HP PRN IV 06/27/24 18:45 07/02/24 20:32 4 MG Dextrose/Sodium Chloride 1,000 ml @ 125 mls/hr Q8H IV 06/27/24 20:00 07/02/24 15:11 125 MLS/HR Pantoprazole Sodium 40 mg DAILY IV 06/28/24 10:00 07/02/24 08:39 40 MG Ceftriaxone Sodium 50 ml @ 100 mls/hr DAILY@09 IV 06/28/24 09:00 07/02/24 08:38 100 MLS/HR Metronidazole 100 ml @ 100 mls/hr Q8HR IV 06/28/24 06:00 07/02/24 21:29 100 MLS/HR Mesalamine 800 mg TID PO 06/29/24 06:00 07/02/24 21:28 800 MG Dicyclomine HCl 20 mg BID PO 06/29/24 22:00 07/02/24 21:28 20 MG Hydromorphone HCl 1 mg Q3HPRN PRN IV 06/29/24 21:45 07/02/24 20:33 1 MG Lorazepam 0.5 mg Q12HP PRN IV 07/02/24 16:00 Metoclopramide HCl 10 mg Q8HPRN PRN IV 07/02/24 16:45 objective General: NAD, AAOX3 Chest: lung marin clear to auscultation Heart: RRR, no murmur Abdomen: Mild-distended, mild tenderness to palpation, +BS laboratory and microbiology Laboratory Tests 07/02/24 12:52 Test 07/02/24 12:52 Range/Units Serum Glucose 112 H 74-106 mg/dL Problems(with codes): (1) Cannabis abuse (2) N&V (nausea and vomiting) (3) Crohn's ileitis (4) Mesenteric adenitis (5) Gastritis (6) Intractable abdominal pain Prognosis Plan Continue fat-free full liquid diet Continue to monitor labs Possible soft mechanical diet in a.m. if the patient is more stable No further GI workup at this time the patient will follow up in my clinic Dietary Evaluation Review Comments: 1) Advance diet as medically feasible 2) Ensure clear 240ml TID (ordered per ONS protocol) 3) Continue current plan of care Expected Outcomes/Goals: Pt will meet 75% estimated needs Fu 2-3 days Plan discussed with: Other (Dr Beau Pleitez) REZA PLEITEZ MD Jul 02, 2024 22:56
[2024-07-03 01:00] VITALS: BP 115/80; PULSE 69; RESP 17; TEMP 98; O2SAT 97
[2024-07-03 05:00] VITALS: BP 109/70; PULSE 73; RESP 18; TEMP 97.6; O2SAT 95
[2024-07-03 07:39] LABS: Basophils # (auto) 0 10 ^3/uL (0-0.2); Basophils % (auto) 0.3 % (0.0-2.0); Eosinophils # (auto) 0.1 10 ^3/uL (0-0.8); Eosinophils % (auto) 1.2 % (0.0-7.0); Hematocrit 41.6 % (41.0-53.0); Lymphocytes # (auto) 1.6 10 ^3/uL (0.4-5.4); Lymphocytes % (auto) 25.9 % (10.0-50.0); Mean Corpuscular Hemoglobin 28.8 pg (28.0-32.0); Mean Corpuscular Hgb Conc. 33.7 g/dL (32.0-36.0); Mean Corpuscular Volume 85.7 fL (80.0-100.0); Monocytes # (auto) 0.5 10 ^3/uL (0-1.3); Monocytes % (auto) 7.8 % (0.0-12.0); Neutrophils % (auto) 64.8 % (37.0-80.0); Platelet Count (auto) 238 10^3/uL (140-450); Red Blood Cells 4.86 10^6/uL (4.5-5.90); Red Cell Distribution Width 14.6 % (11.8-14.3); White Blood Cell 6.1 10^3/uL (4.4-10.8)
[2024-07-03 07:40] LABS: Chloride 106 mmol/L (98-107); Sodium 142 mmol/L (136-145)
[2024-07-03 07:41] LABS: Anion Gap 8 (5-15); Carbon Dioxide 28 mmol/L (20-31)
[2024-07-03 07:47] LABS: Magnesium 1.8 mg/dL (1.6-2.6)
[2024-07-03 07:48] LABS: BUN/Creatinine Ratio 5.6 (10.0-20.0); Blood Urea Nitrogen < 5 mg/dL (9-23); Calcium 8.6 mg/dL (8.7-10.4); Glucose 127 mg/dL (74-106); Potassium 2.8 mmol/L (3.5-5.1)
[2024-07-03 08:00] VITALS: PULSE 67
[2024-07-03 09:00] VITALS: BP 106/73; PULSE 58; RESP 18; TEMP 98.4; O2SAT 97
[2024-07-03] MEDS ORDERED: ALPR0.5T PO (12:17)
[2024-07-03 13:00] VITALS: BP 111/72; PULSE 62; RESP 18; TEMP 97.9; O2SAT 100
[2024-07-03] MEDS: ALPRAZolam 0.5 MG TAB PO ONE (13:28)
--- NOTE | 2024-07-03 14:15 | DVHDSRES ---
Discharge Summary Date of Admission Resident Creating Document: RUBÉN DELAROSA Jun 27, 2024 at 18:41 Date of Discharge: Jun 28, 2024 Labs/Diagnostic Data: Laboratory Results Test 07/03/24 05:53 06/29/24 01:30 06/28/24 10:45 06/28/24 06:35 White Blood Count 6.1 10^3/uL (4.4-10.8) Red Blood Count 4.86 10^6/uL (4.5-5.90) Hemoglobin 14.0 g/dL (13.5-17.5) Hematocrit 41.6 % (41.0-53.0) Mean Corpuscular Volume 85.7 fL (80.0-100.0) Mean Corpuscular Hemoglobin 28.8 pg (28.0-32.0) Mean Corpuscular Hemoglobin Concent 33.7 g/dL (32.0-36.0) Red Cell Distribution Width 14.6 % (11.8-14.3) Platelet Count 238 10^3/uL (140-450) Mean Platelet Volume 9.1 fL (6.9-10.8) Neutrophils (%) (Auto) 64.8 % (37.0-80.0) Lymphocytes (%) (Auto) 25.9 % (10.0-50.0) Monocytes (%) (Auto) 7.8 % (0.0-12.0) Eosinophils (%) (Auto) 1.2 % (0.0-7.0) Basophils (%) (Auto) 0.3 % (0.0-2.0) Neutrophils # (Auto) 4.0 10 ^3/uL (1.6-8.6) Lymphocytes # (Auto) 1.6 10 ^3/uL (0.4-5.4) Monocytes # (Auto) 0.5 10 ^3/uL (0-1.3) Eosinophils # (Auto) 0.1 10 ^3/uL (0-0.8) Basophils # (Auto) 0 10 ^3/uL (0-0.2) Nucleated Red Blood Cells 0.0 % Sodium Level 142 mmol/L (136-145) Potassium Level 2.8 mmol/L (3.5-5.1) Chloride Level 106 mmol/L (98-107) Carbon Dioxide Level 28 mmol/L (20-31) Anion Gap 8 (5-15) Blood Urea Nitrogen < 5 mg/dL (9-23) Creatinine 0.89 mg/dL (0.700-1.30) Glomerular Filtration Rate Calc 119 mL/min (>90) BUN/Creatinine Ratio 5.6 (10.0-20.0) Serum Glucose 127 mg/dL (74-106) Calcium Level 8.6 mg/dL (8.7-10.4) Magnesium Level 1.8 mg/dL (1.6-2.6) Total Bilirubin 0.7 mg/dL (0.2-1.0) Aspartate Amino Transferase (AST) 11 U/L (13-40) Alanine Aminotransferase (ALT) 25 U/L (7-40) Alkaline Phosphatase 81 U/L (46-116) Total Protein 7.3 g/dL (5.7-8.2) Albumin 4.6 g/dL (3.2-4.8) Lipase 34 U/L (12-53) Lactic Acid Level 0.7 mmol/L (0.4-2.0) Urine Color Yellow (Yellow) Urine Clarity Clear (Clear) Urine pH 5.5 (5.0-9.0) Urine Specific [place] 1.030 (1.001-1.035) Urine Protein Trace (Negative) Urine Ketones 1+ (Negative) Urine Blood Negative /uL (Negative) Urine Nitrite Negative (Negative) Urine Bilirubin Negative (Negative) Urine Urobilinogen Normal mg/dL (Negative) Urine Leukocyte Esterase Negative /uL (Negative) Urine RBC 1 /hpf (0 - 3) Urine Microscopic WBC 9 /HPF (0-3) Urine Squamous Epithelial Cells None seen /hpf (<5) Urine Bacteria None seen /hpf (None Seen) Urine Mucus Few (None Seen) Urine Glucose Normal mg/dL (Normal) Urine Opiates Screen Pos (NEGATIVE) Urine Fentanyl Screen Neg (NEGATIVE) Urine Barbiturates Screen Neg (NEGATIVE) Urine Phencyclidine Screen Neg (NEGATIVE) Urine Amphetamines Screen Neg (NEGATIVE) Urine Benzodiazepines Screen Neg (NEGATIVE) Urine Cocaine Screen Neg (NEGATIVE) Urine Cannabinoids Screen Pos (NEGATIVE) Test 06/28/24 05:58 Thyroid Stimulating Hormone (TSH) 0.55 uIU/mL (0.55-4.78) Other Laboratory Tests 07/03/24 05:53 Brief Hx & Hospital Course: HPI- Patient is 28 years old male with past medical history of mild Crohn's disease, gallstone, inflammation of the bowel came with a complaint of intractable abdominal pain. As per patient he has been having intractable upper abdominal pain, sudden onset, 9/10, cramping in nature, relieved with leaning forward, aggravated with food. Patient was endorsed nausea and vomiting almost 10-15 times, mostly yellowish colored fluid, no blood. Patient denied any fever or dysuria, acute joint pain or swelling or sick contact. Patient uses marijuana which he used as per patient 3 days before. Patient was recently discharged from the [facility] on 06/[facility]. Initial lab workup revealed for leukocytosis with WBC 11.2. Lipase within normal limit. Ultrasound of the abdomen. No evidence of acute right upper quadrant abnormalities.Cholelithiasis without evidence of acute cholecystitis. Patient is 28 years old male with past medical history of mild Crohn's disease, gallstone, inflammation of the bowel came with a complaint of intractable abdominal pain. As per patient he has been having intractable upper abdominal pain, sudden onset, 9/10, cramping in nature, relieved with leaning forward, aggravated with food. Patient was endorsed nausea and vomiting almost 10-15 times, mostly yellowish colored fluid, no blood. Patient uses marijuana which he used as per patient 3 days before which med also contributed to patient's nausea and vomiting and abdominal pain. Initial lab workup revealed for leukocytosis with WBC 11.2. Lipase within normal limit. Ultrasound of the abdomen. No evidence of acute right upper quadrant abnormalities.Cholelithiasis without evidence of acute cholecystitis. CT abdomen- Redemonstrated are subcentimeter mesenteric lymph nodes in the right lower quadrant abdomen. These can be seen with mesenteric adenitis. Clinical correlation is recommended. There is no acute process in the abdomen and pelvis. Barium swallow-Initial technician submarine cable equipment view of the abdomen and pelvis appears demonstrates no acute process. Contrast is identified in the colon after 3 hours. Small bowel is not abnormally dilated consider follow-up study to exclude slowed transit time.Patient's symptom improved with the conservative treatment. Patient follows up with Dr. Jaimes for gastrointestinal problem. Patient tolerating liquid diet well. Patient was seen by clinical research monitor and recommended for outpatient follow up. Patient is being discharged home with Carafate and pantoprazole. Patient was advised to follow up with the primary care physician in 1 week and also to follow up with the Gastroenterology in 2-3 weeks. Patient was hemodynamically stable on discharge. # intractable abdominal pain with nausea and vomiting likely due acute viral gastroenteritis likely infectious cause, -ruled out acute cholecystitis or acute pancreatitis # SIRS without end-organ damage # mesenteric adenitis # suspected cannabinoids induced intractable nausea and vomiting # history of Crohn's disease # substance abuse marijuana # history of cholelithiasis Discharge plan -pantoprazole 40 mg p.o. daily -Carafate 1 g t.i.d. for 2 weeks -Zofran 4 mg q.6h PRN -resume other home medication as prescribed by clinical research monitor including mesalamine -please continue liquid diet for 2 weeks then gradually semi-solid to solid -please follow up with the primary care physician in 1 week -please follow up with the clinical research monitor Dr. Jaimes in 2-3 weeks for further evaluation and care Operations or Procedures [place] [id number] Ph: [phone] DIAGNOSTIC IMAGING Diagnostic Imaging Report : [id number] Signed PATIENT: GISELL OSEGUERA IACCT: [id number] UNIT: [id number] : 1995 LOC: OVERFLOW ROOM / BED: [address] [place] [address] AGE / SEX: 28 / M ADM STATUS: ADM IN SERVICE 11 ORDERING PHYSICIAN: RUBÉN DELAROSA RESIDENT PROCEDURE(s): ABDL - ABDOMEN LIMITED REASON: Intractable abdominal pain ORDER NUMBER(s): [id number], ACCESSION NUMBER(s): [id number] EXAM: US ABDOMEN LIMITED CLINICAL HISTORY: Intractable abdominal pain TECHNIQUE: Grayscale and limited color flow doppler ultrasound of the right upper quadrant is performed. COMPARISON: US GALLBLADDER on DOS: 06/08/24 Findings: Liver measures 15.0 cm in length with normal echotexture and contour. No evidence of focal hepatic lesions or intra- or extrahepatic ductal dilatation. Common bile duct measures 0.3 cm in diameter. Normal hepatopedal flow noted within the portal vein. No perihepatic free fluid is noted. Gallbladder appears within normal limits with gallbladder wall thickness measuring 0.1 cm. There are shadowing calculi. No evidence of biliary sludge or pericholecystic fluid. Negative sonographic Burks's sign. Pancreas only partially visualized due to overlying bowel gas but is otherwise unremarkable. Right kidney measures 9.6 cm with normal contours, echotexture and cortical thickness. No evidence of hydronephrosis, calculi, cystic or solid renal lesions. Partially visualized inferior vena cava unremarkable. Impression: 1. No evidence of acute right upper quadrant abnormalities. 2. Cholelithiasis without evidence of acute cholecystitis. ATED BY: LISA PACHECO DO DICTATED DATE/TIME: 06/27/242135 SIGNED BY: LISA PACHECO DO SIGNED DATE/TIME: 06/27/242135 CC: [place] [address] Ph: [phone] DIAGNOSTIC IMAGING Diagnostic Imaging Report : [id number] Signed PATIENT: GISELL OSEGUERA IACCT: [id number] UNIT: [id number] : 1995 LOC: [facility] ROOM / BED: [address] [place] [address] AGE / SEX: 28 / M ADM STATUS: ADM IN SERVICE 22 ORDERING PHYSICIAN: REZA JAIMES MD PROCEDURE(s): SMB - SMALL BOWEL SERIES-W BARIUM REASON: ? CROHN'S ILEITIS; ABDOMINAL PAIN ORDER NUMBER(s): [id number], ACCESSION NUMBER(s): [id number] Procedure: XY SMALL BOWEL SERIES-W BARIUM Reason for study/Clinical History: CROHN'S ILEITIS; ABDOMINAL PAIN Comparison Study: None available at time of dictation. Technique: Single contrast small bowel series performed. FINDINGS/IMPRESSION: Initial technician submarine cable equipment view of the abdomen and pelvis appears demonstrates no acute process. Contrast is identified in the colon after 3 hours. Small bowel is not abnormally dilated consider follow-up study to exclude slowed transit time. HS:Y ATED BY: REE FLANAGAN Jr., DO DICTATED DATE/TIME: 06/30/241927 SIGNED BY: REE FLANAGAN Jr., DO SIGNED DATE/TIME: 06/30/241927 CC: [place] [address] Ph: [phone] DIAGNOSTIC IMAGING Diagnostic Imaging Report : [id number] Signed PATIENT: GISELL OSEGUERA IACCT: [id number] UNIT: [id number] : 1995 LOC: [facility] ROOM / BED: [id number] / B AGE / SEX: 28 / M ADM STATUS: ADM IN SERVICE 1304 ORDERING PHYSICIAN: TESSA MELENDEZ MD PROCEDURE(s): ABPL - CT AB PEL WO CON-NO ORAL OR IV REASON: RULE OUT PERFORATION ORDER NUMBER(s): [id number], ACCESSION NUMBER(s): [id number] CT ABDOMEN AND PELVIS WITHOUT CONTRAST CLINICAL HISTORY: RULE OUT PERFORATION TECHNIQUE: Multiple contiguous axial images of the abdomen and pelvis without intravenous contrast. The images were reformatted degenerate coronal and sagittal reconstructions. All CT scans at this medical facility are performed using dose modulation techniques as appropriate to a performed exam including the following:Automated exposure control was utilized; adjustment of the MA and/or KV according to patient size; and use of iterative reconstruction technique. Radiation Dose Information: CT Dose: CTDI volume is 7.27 mGy. Dose-length product is 401.73 mGy*cm Comparison: CT CT AB PEL WO CON-NO ORAL OR IV on DOS: 06/08/24, CT CT AB PEL WO CON-NO ORAL OR IV on DOS: 02/12/23 FINDINGS: Evaluation of the abdomen and pelvis is limited without intravenous contrast. The liver, gallbladder, pancreas, kidneys, adrenal glands, and spleen appear within normal limits. Again seen are subcentimeter mesenteric lymph nodes in the right lower quadrant abdomen. There is no free fluid or free air. The stomach grossly appears unremarkable. The small and large bowel loops demonstrate normal caliber and distribution. A normal appearing appendix is seen in the right lower quadrant abdomen. The large bowel loops are poorly distended. The abdominal aorta and IVC appear within normal limits. The bladder appears unremarkable for the degree of distention. Pelvic organ appears within normal limits. There is no gross evidence of a pelvic mass. There is no free fluid collection. Lung bases are clear. There is no acute osseous abnormality. IMPRESSION: 1. There is no acute process in the abdomen and pelvis. 2. Redemonstrated are subcentimeter mesenteric lymph nodes in the right lower quadrant abdomen. These can be seen with mesenteric adenitis. Clinical correlation is recommended. HS:Y ATED BY: LAWSON CHINO MD DICTATED DATE/TIME: 06/29/241516 SIGNED BY: LAWSON CHINO MD SIGNED DATE/TIME: 06/29/241516 CC: Condition at Discharge: Stable Final Diagnosis/Problems List # intractable abdominal pain with nausea and vomiting likely due acute viral gastroenteritis likely infectious cause, -ruled out acute cholecystitis or acute pancreatitis# Mesenteric adenitis SIRS without end-organ damage # suspected cannabinoids induced intractable nausea and vomiting# history of Crohn's disease# substance abuse marijuana# history of cholelithiasis Discharge Disposition: Home Discharge Instruct/Medications Diet: Regular Activity: No Restrictions, As Tolerated Follow Up/Referral: -please continue liquid diet for 5-7 days then gradually semi-solid tosolid-please follow up with the primary care physician in 1 week-please follow up with the clinical research monitor Dr. Jaimes in 2-3 weeks forfurther evaluation and care Medications: -pantoprazole 40 mg p.o. daily-Carafate 1 g t.i.d. for 2 weeksZofran 4 mg q.6h PRN-resume other home medication as prescribed by gastroenterologistincluding mesalamine Discharge Statement: "Patient was advised to return to the ER or call 911 if any headaches, dizziness, shortness of breath, chest pain, abdominal pain, bleeding, fevers, or worsening of medical condition. Patient was counseled about treatment plan, medications, possible side effects, patientverbalized understanding. All questions were answered to the best of my ability. This discharge took greater then 30 minutes in planning, reviewing documentation, counseling the patient, and discussing with other team members." ASSESSMENT ASSESSMENT Assessment # intractable abdominal pain with nausea and vomiting likely due acute viral gastroenteritis likely infectious cause, -ruled out acute cholecystitis or acute pancreatitis# SIRS without end-organ damage # suspected cannabinoids induced intractable nausea and vomiting# history of Crohn's disease# substance abuse marijuana# history of cholelithiasis Date of Service: Jun 28, 2024 Billing Provider: ALEJO KHAN MD Common Visit Codes: 61360-TEA/OBS DISCH DAY >30min RUBÉN DELAROSA RESIDENT Jul 03, 2024 14:15 ALEJO KHAN MD Jul 11, 2024 01:48
--- NOTE | 2024-07-03 20:17 | DVHPN2 ---
Progress Note - Dictate Date Seen: Jul 03, 2024 (Time of visit 1:00 p.m.) Medical Necessity Reason Pt with a Central, PICC or Fol: No Subjective Patient was put on a full liquid diet However the meal was somewhat fatty and patient develops lower abdominal pain and discomfort afterwards Surgical consult is following Patient underwent a small bowel series And there was no evidence of ileitis or strictures IBD panel negative for p-ANCA and P ASCA Crohn's disease diagnosis is less likely I believe his ileitis on recent colonoscopy was related to moderate NSAID use at that time Patient has since discontinued NSAID use vital signs Vital Sign Date Time Temp Pulse Resp B/P (MAP) Pulse Ox O2 Delivery O2 Flow Rate FiO2 07/03/24 13:00 97.9 62 18 111/72 (85) 100 97.9 07/03/24 08:00 Room Air* 0 21 Total Intake and Output 07/02/24 07/02/24 07/03/24 15:00 23:00 07:00 Intake Total 50 ml 1000 ml 1200 ml Output Total 1500 ml Balance 50 ml -500 ml 1200 ml objective General: NAD, AAOX3 Chest: lung marin clear to auscultation Heart: RRR, no murmur Abdomen: Mild-distended, mild tenderness to palpation, +BS laboratory and microbiology Laboratory Tests 07/03/24 05:53 Test 07/03/24 05:53 Range/Units Serum Glucose 127 H 74-106 mg/dL Problems(with codes): (1) Cannabis abuse (2) N&V (nausea and vomiting) (3) Crohn's ileitis (4) Abdominal pain (5) Mesenteric adenitis (6) Cholelithiasis Prognosis Plan Advance to soft mechanical diet Discharge planning in progress No further GI workup at this time the patient will follow up in my clinic Dietary Evaluation Review Comments: 1) Advance diet as medically feasible 2) Ensure clear 240ml TID (ordered per ONS protocol) 3) Continue current plan of care Expected Outcomes/Goals: Pt will meet 75% estimated needs Fu 2-3 days Plan discussed with: Other (Nurse) REZA JAIMES MD Jul 03, 2024 20:17
== END 2024-07-03 15:20 | disposition home or self-care (01) | DRG 249 ==
LOC: ER 14:08 → OVERFLOW 18:41 → TELE-WESTW 18:43
PROVIDERS: ADMIT Student in an Organized Health Care Education/Training Program; ATTEND Student in an Organized Health Care Education/Training Program
DX: A08.4 Viral intestinal infection, unspecified (principal); R65.10 Systemic inflammatory response syndrome (SIRS) of non-infectious origin without acute organ dysfunction; I88.0 Nonspecific mesenteric lymphadenitis; T40.725A Adverse effect of synthetic cannabinoids, initial encounter; Z79.899 Other long term (current) drug therapy; Y92.89 Other specified places as the place of occurrence of the external cause
CPT/HCPCS: 36415; 71045; 74176; 74250; 76705; 80048; 80053; 80307; 81001; 83605; 83690; 83735; 84443; 85025; 86850; 86900; 86901; 87081; 93005; 96361; 96374; 96375; G0378; J2405; J2470; J3490; J7042

== ENCOUNTER → 2025-02-08 | Day surgery (SDC) | payer MEDICAID ==
[2025-02-04 15:14] LABS: Hematocrit 46.3 % (41.0-53.0); Hemoglobin 15.7 g/dL (13.5-17.5); Mean Corpuscular Hemoglobin 28.9 pg (28.0-32.0); Mean Corpuscular Volume 85.4 fL (80.0-100.0); Nucleated Red Blood Cells % 0.1 %
[2025-02-04 15:21] LABS: INR 1.08 (0.9-1.15); Partial Thromboplastin Time 27.0 SEC (24.5-34.5); Prothrombin Time 11.4 sec (9.3-11.8)
[2025-02-04 15:50] LABS: Urine Protein, UAD TRACE (Negative)
[2025-02-04 15:52] LABS: Alanine Aminotransferase 25 U/L (7-40); Albumin 4.5 g/dL (3.2-4.8); Alkaline Phosphatase 102 U/L (46-116); Anion Gap 9 (5-15); BUN/Creatinine Ratio 15.7 (10.0-20.0); Bilirubin, Total 0.7 mg/dL (0.2-1.0); Blood Urea Nitrogen 16 mg/dL (9-23); Calcium 9.5 mg/dL (8.7-10.4); Carbon Dioxide 28 mmol/L (20-31); Chloride 106 mmol/L (98-107); Potassium 4.5 mmol/L (3.5-5.1); Sodium 143 mmol/L (136-145); Total Protein 8.1 g/dL (5.7-8.2)
[2025-02-04 15:56] LABS: Glucose 109 mg/dL (74-106)
[~2025-02-08] VITALS: Ht 182.9 cm; Wt 90.3 kg
[~2025-02-08] MED LIST changes: -DICY10CA PO; +KETAMINE 50mg/ML 1ml syringe ONE; +LIDOCAINE 1% INJ PF 5ML AMP ONE; -MESA1.2T PO; -METH4PAK PO; +MIDAZOLAM HCL 2MG/2ML 2ml VIAL (1mg/ml) ONE; +ONDANSETRON HCL 4 MG/2 ML VIAL IV PRN; +PROPOFOL 10 MG/ML 20 ML IV ONE
[2025-02-08 13:59] VITALS: PULSE 97; RESP 20; TEMP 97
[2025-02-08 14:14] VITALS: PULSE 83; RESP 20
--- NOTE | 2025-02-08 14:29 | DVHOP2 ---
Operative Report DATE OF OPERATION: 02/08/25 PROCEDURE: Colonoscopy with cold biopsy. PREOPERATIVE INDICATION: The patient is a 29 -year-old male undergoing colonoscopy for for re-evaluation of possible Crohn's ileitis POSTOPERATIVE DIAGNOSES: 1. Mild tortuosity of the colon especially involving the sigmoid colon and the splenic flexure area 2. Trace internal hemorrhoids otherwise normal examination up to the cecum and terminal ileum PROCEDURE PERFORMED BY: Reza Pleitez M.D. SCOPE: Olympus videocolonoscope. ASA CLASS: 3. PREOPERATIVE MEDICATIONS: Dr. Reese Ibrahim PROCEDURE IN DETAIL: After obtaining an informed consent, the patient was placed on left lateral decubitus position. He was then sedated with the above medications. A rectal examination was performed that was normal. The colonoscope was then passed through the anus into the rectosigmoid and through the descending, transverse, and ascending colon up to the cecum with visualization of the appendiceal orifice, base of the cecum and the ileocecal valve. The colonoscope was then withdrawn. The distal 3-5 cm of the terminal ileum were normal but deep intubation could not be obtained No polyps or masses were seen. There was no colitis or clear-cut diverticular disease. Random left colon biopsies were obtained Patient had mild tortuosity of the colon especially involving the sigmoid and the splenic flexure On retroflexion and straight on view he had trace to 1+ internal hemorrhoids The patient tolerated the procedure well without difficulty. WITHDRAWAL TIME: 6 minutes QUALITY OF THE PREP: [place] Bowel Prep score: 9. COMPLICATIONS : None SPECIMENS: Random colon biopsies DISPOSITION: Stable D/C to home PLAN: 1. Repeat colonoscopy base on biopsy result likely in five years 2. Resume GI soft diet advance as tolerated 3. Get a small-bowel follow-through x-ray as an outpatient clinically indicated 4. Outpatient follow up with me in 2-4 weeks to review results and discuss further management pending clinical symptoms REZA PLEITEZ MD Feb 08, 2025 14:29
[2025-02-08 14:35] VITALS: BP 123/96; PULSE 80; O2SAT 95
[2025-02-08 14:49] VITALS: RESP 20
== END | disposition home or self-care (01) ==
LOC: GI 11:37
PROVIDERS: ATTEND Internal Medicine Gastroenterology
DX: K92.1 Melena (principal); K64.8 Other hemorrhoids; K63.89 Other specified diseases of intestine; E66.3 Overweight; K50.90 Crohn's disease, unspecified, without complications; Z87.891 Personal history of nicotine dependence; Z98.890 Other specified postprocedural states
CPT/HCPCS: 36415; 45380; 80053; 81001; 85025; 85610; 85730; 88305; J2250; J2704; J7030